=== PATIENT | male | born 1975 | race American Indian/Alaskan Native ===

== ENCOUNTER 2017-09-05 19:16 | Emergency (ER) | payer SELFPAY ==
[2017-09-05] MEDS ORDERED: DUONEB *Not for PRN Use IH ONE (19:21)
[2017-09-05] MEDS ORDERED: XOPENEX IH ONE ×2 (19:26→19:30)
--- NOTE | 2017-09-06 00:33 | Emergency Department Report ---
HPI - General Chief Complaint: Adult Asthma Time Seen by Provider: 09/05/17 23:59 - HPI HPI: Patient reports shortness of breath, wheezing and cough. He reports that he ran out of his albuterol nebulizer which he usually uses at home. Patient said he has never been intubated for asthma flareup but he said several episode of flares usually every 2-3 weeks. His primary care is [place]. He said he only takes albuterol nebulizer for asthma. He said his last emergency room visit was 2 months ago. Denies any fever or chills. Denies any chest pain. Pain is 0-10. Positive nasal congestion and drainage with postnasal drip. Blood pressure is 178/120 and triage and patient's that his blood pressures always up with his asthma exacerbation and denies any history of high blood pressure. Cough is dry without any hemoptysis. Denies nausea vomiting or abdominal low back pain. Denies sore throat or headache. ED Past Medical Hx - Past Medical History Previous Medical History?: Yes Hx Asthma: Yes Additional medical history: Hernia - Surgical History Past Surgical History?: Yes Additional Surgical History: Skin graft - Family History Family history: hypertension - Social History Smoking Status: Never Smoker Substance Use Type: None - Medications Home Medications: Home Medications Medication Instructions Recorded Confirmed Last Taken Type traMADol [Ultram 50 MG tab] 50 mg PO Q6HR PRN #15 tablet 11/14/15 Unknown Rx ALBUTEROL Inhaler [ProAir HFA 2 puff IH Q4-6H PRN #1 inhalation 09/06/17 Unknown Rx Inhaler] ALBUTEROL NEB's [Proventil 0.083% 2.5 mg IH Q4-6H PRN #1 box 09/06/17 Unknown Rx NEBS] Cetirizine HCl [ZyrTEC] 10 mg PO QAM 14 Days #14 capsule 09/06/17 Unknown Rx Fluticasone [Flonase] 1 spray NS QDAY 14 Days #1 bottle 09/06/17 Unknown Rx methylPREDNISolone [Medrol Dose 4 mg PO QAM 6 Days #1 pack 09/06/17 Unknown Rx Solomon] ED Review of Systems ROS: Stated complaint: DAVID Other details as noted in HPI Comment: All other systems reviewed and negative Constitutional: no symptoms reported ENT: congestion. denies: ear pain, throat pain Respiratory: cough, shortness of breath, SOB with exertion, SOB at rest, wheezing. denies: orthopnea, stridor Cardiovascular: denies: chest pain, palpitations, dyspnea on exertion, edema, syncope, paroxysmal nocturnal dyspnea Gastrointestinal: denies: abdominal pain, nausea, vomiting, diarrhea Musculoskeletal: denies: back pain, joint swelling, arthralgia Skin: denies: rash Neurological: denies: headache Physical Exam - Physical Exam Vital Signs: Vital Signs 09/05/17 09/05/17 19:45 23:33 Temperature 98.3 F 98.3 F Pulse Rate 134 H 106 H Respiratory 22 18 Rate Blood Pressure 178/120 Blood Pressure 145/115 [Right] O2 Sat by Pulse 90 97 Oximetry Vital Signs 09/05/17 09/05/17 09/06/17 19:45 23:33 00:34 Temperature 98.3 F 98.3 F Pulse Rate 134 H 106 H Respiratory 22 18 18 Rate Blood Pressure 178/120 Blood Pressure 140/100 [Left] Blood Pressure 145/115 [Right] O2 Sat by Pulse 90 97 98 Oximetry General: This is a 42-year-old male well-nourished well-developed in no acute distress. Physical Exam: Head: Normocephalic, atraumatic, no abrasion, no bruising and no contusion. Eyes: Biateral pupils equal and reactive to light, bilateral EOM intact.. Bilateral conjunctival and sclera without injection, normal accommodation. No nystagmus Mouth: Moist, no pharyngeal exudate or erythema. No peritonsillar abscesses. Uvula is midline and oral airways patent. Ears: TM congested without erythema. Bilateral EAC without any redness swelling or drainage. No mastoid bone tenderness Nose: Thierry nasal turbinates congested without erythema and clear drainage. Maxillary and frontal sinuses non-tender to palpate. Neck: Supple, No Cervical adenopathy, full range of motion and no C-spine tenderness. No swelling or tracheal deviation normal reflexes Cardiovascular: S1, S2. Tachycardic and regular rhythm. No murmur. Capillary refill is less then 3 seconds. Lungs: Wheezes throughout lung weaver, dry cough, mild increased work of breathing. No chest wall tenderness. No chest contusion. No bruising to chest.. MSK: Strength 5/5 in all extremities. No joint deformity or crepitus. Normal inspection. Full range of motion to all extremities. No laceration, abrasion or ecchymotic area noted. Abdomen: Non-tender to palpate in all quadrants, no guarding or rebound tenderness, positive bowel sounds in all quadrants. No CVA tenderness. No hernia, bruit or mass. No rigidity or distention. Extremities: No clubbing, cyanosis or edema. +2 pulses. No neurovascular compromise Skin: Clean, dry and intact. No rash or lesions. Neurological: GCS at 15, Pt is alert and oriented 3 speech is clear period. Bilateral hand clinical applications manager strong and equal. Normal gait. Psych: Normal mood and behavior ED Course Vital Signs 09/05/17 09/05/17 19:45 23:33 Temperature 98.3 F 98.3 F Pulse Rate 134 H 106 H Respiratory 22 18 Rate Blood Pressure 178/120 Blood Pressure 145/115 [Right] O2 Sat by Pulse 90 97 Oximetry Vital Signs 09/05/17 09/05/17 09/06/17 19:45 23:33 00:34 Temperature 98.3 F 98.3 F Pulse Rate 134 H 106 H Respiratory 22 18 18 Rate Blood Pressure 178/120 Blood Pressure 140/100 [Left] Blood Pressure 145/115 [Right] O2 Sat by Pulse 90 97 98 Oximetry - Reevaluation(s) Reevaluation #1: 09/06/17 01:08 Patient received Xopenex 1.25 mg nebulization treatment along with Solu-Medrol 125 mg IV. Reevaluation, patient said he felt better and lung sounds are clear. ED Medical Decision Making - Medical Decision Making ED course: Patient here with exacerbation of asthma. He goes to [facility] for his primary care physician visits and said that he has an appointment coming up with his doctor next week. He reports that he uses albuterol nebulizer at home and does not use the inhaler. Patient denies using any long-term bronchodilator. Patient he reported an asthma flareup and that he gets flareup every couple weeks. Patient found to have O2 sat at 90% on room air with tachycardia and blood pressure of 178/120 upon arrival to the emergency room. He was given Xopenex 1.25 mg nebulizer and Solu-Medrol 125 mg IV and upon reevaluation patient said he feels better and his lungs sounds are clear. Patient vital signs are better blood pressure is 140/100 and he denies any history of high blood pressure. I discussed patient he needs to keep a log of his blood pressure and take his primary care visit with him for evaluation. I also discussed patient that if he is using his rescue inhaler several times a week studies get an asthma flareup every couple weeks he will need to discuss with his primary care management with other medication such as long acting bronchodilators. Patient is stable and discharged home with prescription for Zyrtec, Flonase, Medrol Dosepak, albuterol inhaler and albuterol nebulizer. To follow up with his primary care in 2 days Critical care attestation.: If time is entered above; I have spent that time in minutes in the direct care of this critically ill patient, excluding procedure time. ED Disposition Clinical Impression: Acute exacerbation of asthma with allergic rhinitis, Cough in adult Disposition: DC-01 TO HOME OR SELFCARE Is pt being admited?: No Does the pt Need Aspirin: No Condition: Stable Instructions: Asthma (ED), Upper Respiratory Infection (ED), Acute Cough (ED) Additional Instructions: Please follow up with primary care physician in 2 days or return to the emergency room if his symptoms worsen prior to follow up visit. Please keep a log of your blood pressure and take to primary care visit with you for evaluation. Take albuterol inhaler and nebulizer as prescribed Take Flonase and Zyrtec for rhinitis which includes nasal congestion and ear congestion. Take Medrol Dosepak as prescribed Prescriptions: ALBUTEROL Inhaler [ProAir HFA Inhaler] 2 puff IH Q4-6H PRN #1 inhalation PRN Reason: wheezing and cough ALBUTEROL NEB's [Proventil 0.083% NEBS] 2.5 mg IH Q4-6H PRN #1 box PRN Reason: cough and wheezing Cetirizine HCl [ZyrTEC] 10 mg PO QAM 14 Days #14 capsule Fluticasone [Flonase] 1 spray NS QDAY 14 Days #1 bottle methylPREDNISolone [Medrol Dose Solomon] 4 mg PO QAM 6 Days #1 pack Referrals: [facility] [Outside] - 09/08/17 [facility] [Provider Group] - 09/08/17 Forms: Work/School Release Form(ED)
[2017-09-06 00:34] VITALS: BP 140/100
== END 2017-09-06 01:20 | disposition home or self-care (01) ==
LOC: ED 19:16
DX: J45.901 Unspecified asthma with (acute) exacerbation (principal); I10 Essential (primary) hypertension
CPT/HCPCS: 96374; 99282; J2930

== ENCOUNTER 2017-12-17 22:38 | Emergency (ER) | payer SELFPAY ==
[2017-12-17] MEDS ORDERED: ATROVENT IH ONE ×3 (23:12→23:19)
[2017-12-17] MEDS ORDERED: PROVENTIL IH ONE ×3 (23:12→23:19)
[2017-12-17 23:17] LABS: Hematocrit 44.4 % (35.5-45.6); Hemoglobin 14.5 gm/dl (11.8-15.2); Mean Corpuscular HGB Conc 33 % (32-34); Mean Corpuscular Hemoglobin 26 pg (28-32); Mean Corpuscular Volume 80 fl (84-94); Platelet Count 212 K/mm3 (140-440); Red Blood Count 5.56 M/mm3 (3.65-5.03); Red Cell Distribution Width 13.7 % (13.2-15.2)
--- NOTE | 2017-12-17 23:17 | Emergency Department Report ---
Olga Doc - Documentation Documentation: This is a 42-year-old male who reports that he is having difficulty breathing and and he has a history of asthma and he takes albuterol but this is a different pattern for him. He is here to be evaluated. Denies any chest pain but reports shortness of breath. He said he has wheezing that comes and goes. Patient O2 sat is 93% on room air. He denies any fever or chills. Denies any headache. PE: Lungs sounds diminished throughout, mild increased work of breathing. No adventitious sounds heard upon examination. Pulse ox is 93% on room air CV: S1, S2. Regular rate and rhythm Mouth: Moist, uvula midline and oral airways patent. Tongue is normal A/P 1: Difficulty breathing then-pulse ox is at 93% on room air. Albuterol and Atrovent nebulized treatment ordered. Chest x-ray ordered, labs are pending and patient to be seen by Dr. Griffiths who I spoke with regarding patient.
[2017-12-17] MEDS ORDERED: DELTASONE PO ONE (23:20)
--- NOTE | 2017-12-17 23:27 | Emergency Department Report ---
HPI - General Chief Complaint: Dyspnea/Respdistress Time Seen by Provider: 12/17/17 23:10 - HPI HPI: Room 31 The patient is a 42-year-old male presenting with chief complaint of shortness of breath. The patient stayed for one week he says shortness of breath as well as a cough has been nonproductive. The patient states he has chest pain that worsens whenever he coughs. Patient denies any history of fever. Patient states the symptoms feel consistent with his asthma but states she usually only wheezes at night when lying down. Patient denies peripheral edema Location: Lungs, see above Duration: One week Quality: Shortness of breath Severity: Moderate Modifying factors: [see above] Context: [see above] Mode of transportation: Unknown ED Past Medical Hx - Past Medical History Hx Asthma: Yes Additional medical history: Hernia - Surgical History Additional Surgical History: Skin graft - Social History Smoking Status: Never Smoker Substance Use Type: None (denies illicit drug use) - Medications Home Medications: Home Medications Medication Instructions Recorded Confirmed Last Taken Type traMADol [Ultram 50 MG tab] 50 mg PO Q6HR PRN #15 tablet 11/14/15 Unknown Rx ALBUTEROL Inhaler [ProAir HFA 2 puff IH Q4-6H PRN #1 inhalation 09/06/17 Unknown Rx Inhaler] ALBUTEROL NEB's [Proventil 0.083% 2.5 mg IH Q4-6H PRN #1 box 09/06/17 Unknown Rx NEBS] Cetirizine HCl [ZyrTEC] 10 mg PO QAM 14 Days #14 capsule 09/06/17 Unknown Rx Fluticasone [Flonase] 1 spray NS QDAY 14 Days #1 bottle 09/06/17 Unknown Rx methylPREDNISolone [Medrol Dose 4 mg PO QAM 6 Days #1 pack 09/06/17 Unknown Rx Solomon] ED Review of Systems ROS: Stated complaint: DAVID Other details as noted in HPI Constitutional: denies: fever Eyes: denies: eye pain ENT: denies: throat pain Respiratory: cough, shortness of breath, wheezing Gastrointestinal: denies: abdominal pain Genitourinary: denies: dysuria Musculoskeletal: myalgia (chest pain that increases with cough). denies: back pain Neurological: denies: headache Physical Exam - Physical Exam Vital Signs: Vital Signs 12/17/17 22:44 Temperature 98.6 F Pulse Rate 100 H Respiratory 22 Rate Blood Pressure 114/66 O2 Sat by Pulse 93 Oximetry Physical Exam: GENERAL: The patient is well-developed well-nourished male sitting in wheelchair exhibiting mild increased work of breathing but does not appear to be in acute distress. [] HEENT: Normocephalic. Atraumatic. Extraocular motions are intact. Patient has moist mucous membranes. NECK: Supple. Trachea midline CHEST/LUNGS: Clear to auscultation. No wheezing or rhonchi auscultated. Breath sounds are equal bilaterally. There is no respiratory distress noted. HEART/CARDIOVASCULAR: Regular. There is no tachycardia. There is no gallop rub or murmur. ABDOMEN: Abdomen is soft, nontender. Patient has normal bowel sounds. There is no abdominal distention. SKIN: There is no rash. There is no edema. There is no diaphoresis. NEURO: The patient is awake, alert, and oriented. The patient is cooperative. The patient has normal speech MUSCULOSKELETAL: There is no evidence of acute injury. ED Course Vital Signs 12/17/17 22:44 Temperature 98.6 F Pulse Rate 100 H Respiratory 22 Rate Blood Pressure 114/66 O2 Sat by Pulse 93 Oximetry ED Medical Decision Making - Lab Data Result diagrams: 12/17/17 23:04 12/17/17 23:04 Laboratory Tests 12/17/17 12/17/17 12/17/17 23:04 23:04 23:28 WBC 10.9 RBC 5.56 H Hgb 14.5 Hct 44.4 MCV 80 L MCH 26 L MCHC 33 RDW 13.7 Plt Count 212 Eos % (Auto) Yeast Culture Operator D-Dimer 169.76 VBG pH Sodium 120 L Potassium 3.8 Chloride 79.4 L Carbon Dioxide 23 Anion Gap 21 BUN 25 H Creatinine 1.2 Estimated GFR > 60 BUN/Creatinine Ratio 21 Glucose 907 H* POC Glucose Calcium 9.3 Total Creatine Kinase CK-MB (CK-2) CK-MB (CK-2) Rel Index Troponin T NT-Pro-B Natriuret Pep 12/17/17 12/18/17 12/18/17 23:28 00:15 01:02 WBC RBC Hgb Hct MCV MCH MCHC RDW Plt Count Eos % (Auto) D-Dimer VBG pH 7.382 Sodium Potassium Chloride Carbon Dioxide Anion Gap BUN Creatinine Estimated GFR BUN/Creatinine Ratio Glucose POC Glucose > 500 H Calcium Total Creatine Kinase 146 CK-MB (CK-2) 3.5 CK-MB (CK-2) Rel Index 2.3 Troponin T < 0.010 NT-Pro-B Natriuret Pep 27.02 - EKG Data -: EKG Interpreted by Me EKG shows normal: sinus rhythm Rate: normal - EKG Data When compared to previous EKG there are: previous EKG unavailable Interpretation: nonspecific ST-T wave rashawn (koehler ST elevation) - Medical Decision Making Discussed with patient at length my concern for his extremely elevated glucose and that he should be admitted to the hospital for further management. I explained the increased risk of morbidity and/or mortality should he leave the hospital AGAINST MEDICAL ADVICE. The patient verbalizes understanding and states he does not wish to stay. - Differential Diagnosis asthma, bronchitis, pericarditis, pneumonia, CHF, ACS, PE Critical care attestation.: If time is entered above; I have spent that time in minutes in the direct care of this critically ill patient, excluding procedure time. ED Disposition Clinical Impression: Hyperglycemia, Diabetes mellitus, Shortness of breath, Cough Disposition: 07 LEFT AGAINST MED ADVICE Is pt being admited?: No Does the pt Need Aspirin: No Condition: Undetermined Instructions: Diabetes Mellitus Type 2 in Adults (ED) Referrals: JORDAN EVERETT MD [Staff Physician] - [facility] [Outside] - [facility] Time of Disposition: 01:07 (patient leaving AMA)
[2017-12-17 23:38] LABS: BUN/Creatinine Ratio 21; Blood Urea Nitrogen 25 mg/dL (9-20); Calcium 9.3 mg/dL (8.4-10.2); Hemolysis Index 14
[2017-12-17 23:56] LABS: Creatine Kinase MB 3.5 ng/mL (0.0-4.0)
[2017-12-18] MEDS ORDERED: NACL 0.9% 1000 ML 1,000 ML IV ONE (00:11)
--- NOTE | 2017-12-18 00:39 | XRay Report ---
FINAL REPORT EXAM: XR CHEST ROUTINE 2V HISTORY: shortness of breath, cough TECHNIQUE: PA and lateral views of the chest were obtained. PRIORS: None. FINDINGS: No lobar consolidation, pleural effusion or pneumothorax. Patchy opacities are suggested in the right upper lobe. Cardiac silhouette and mediastinal contours are unremarkable. No acute osseous abnormality is present. IMPRESSION: Possible early infiltrate in the right upper lobe. No pleural effusion.
[2017-12-18] MEDS ORDERED: HumuLIN R IV ONE (01:01)
[2017-12-18 01:24] VITALS: BP 95/65
[2017-12-18 01:34] LABS: Platelet Estimate Consistent w Auto; Total Cells Counted 100
== END 2017-12-18 02:15 | disposition left against medical advice (07) ==
LOC: ED 22:38
DX: E11.65 Type 2 diabetes mellitus with hyperglycemia (principal); R06.02 Shortness of breath; R05 Cough; J45.909 Unspecified asthma, uncomplicated; Z79.899 Other long term (current) drug therapy
CPT/HCPCS: 36415; 71046; 80048; 82550; 82553; 82805; 82962; 83880; 84484; 85007; 85025; 85379; 93005; 93010; 94640; 96361; 96374; 99284; J7030; J7512; J1815

== ENCOUNTER 2018-01-24 18:42 | Emergency (ER) | payer OTHER ==
[2018-01-24] MEDS ORDERED: DUONEB *Not for PRN Use IH ONE (19:02)
[2018-01-24] MEDS ORDERED: PROVENTIL IH ONE (19:03)
--- NOTE | 2018-01-24 22:43 | Emergency Department Report ---
ED Asthma HPI - General Chief Complaint: Dyspnea/Respdistress Stated Complaint: ASTHMA Time Seen by Provider: 01/24/18 22:27 Source: patient Mode of arrival: Ambulatory Limitations: No Limitations - History of Present Illness Initial Comments: This is a 43-year-old male who is unknown to this provider previously, reports a past medical history of asthma and diabetes, presents to the ER with cough, wheezing, shortness of breath, reports symptoms today are similar to prior episodes of asthma flare/exacerbation. He was given albuterol Atrovent and steroids prior to my evaluation, and this resolved his symptoms. He denies DVT and pulmonary embolus risk factors, reports that his symptoms are now resolved, and like to go home. MD Complaint: "asthma attack", shortness of breath, wheezing -: Gradual Asthma History: adult onset, history of prior ED visit Severity: moderate Context: ran out of meds Associated Symptoms: dry cough Treatments Prior to Arrival: inhaled bronchodilator - Related Data Previous Rx's Medication Instructions Recorded Last Taken Type traMADol [Ultram 50 MG tab] 50 mg PO Q6HR PRN #15 tablet 11/14/15 Unknown Rx ALBUTEROL Inhaler [ProAir HFA 2 puff IH Q4-6H PRN #1 inhalation 09/06/17 Unknown Rx Inhaler] ALBUTEROL NEB's [Proventil 0.083% 2.5 mg IH Q4-6H PRN #1 box 09/06/17 Unknown Rx NEBS] Cetirizine HCl [ZyrTEC] 10 mg PO QAM 14 Days #14 capsule 09/06/17 Unknown Rx Fluticasone [Flonase] 1 spray NS QDAY 14 Days #1 bottle 09/06/17 Unknown Rx methylPREDNISolone [Medrol Dose 4 mg PO QAM 6 Days #1 pack 09/06/17 Unknown Rx Solomon] ALBUTEROL Inhaler [Proair] 2 puff IH QID PRN #1 inhalation 12/18/17 Unknown Rx Amoxicillin [Amoxicillin TAB] 875 mg PO BID #14 tablet 12/18/17 Unknown Rx Albuterol Sulfate [Albuterol 0.63% 0.63 mg IH Q4HR PRN #2 ml 01/25/18 Unknown Rx NEBS] Albuterol Sulfate [Proair 90 mcg IH Q4HR PRN #2 [email or web address] 01/25/18 Unknown Rx Respiclick] predniSONE [Deltasone] 40 mg PO QDAY #8 tab 01/25/18 Unknown Rx Allergies Allergy/AdvReac Type Severity Reaction Status Date / Time No Known Allergies Allergy Verified 01/24/18 19:06 ED Review of Systems ROS: Stated complaint: ASTHMA Other details as noted in HPI Constitutional: denies: weakness ENT: congestion Respiratory: wheezing Cardiovascular: denies: chest pain Gastrointestinal: denies: abdominal pain Genitourinary: denies: dysuria Musculoskeletal: denies: back pain Skin: denies: lesions Neurological: denies: weakness ED Past Medical Hx - Past Medical History Previous Medical History?: Yes Hx Asthma: Yes Additional medical history: Hernia - Surgical History Past Surgical History?: Yes Additional Surgical History: Skin graft - Social History Smoking Status: Never Smoker - Medications Home Medications: Home Medications Medication Instructions Recorded Confirmed Last Taken Type traMADol [Ultram 50 MG tab] 50 mg PO Q6HR PRN #15 tablet 11/14/15 Unknown Rx ALBUTEROL Inhaler [ProAir HFA 2 puff IH Q4-6H PRN #1 inhalation 09/06/17 Unknown Rx Inhaler] ALBUTEROL NEB's [Proventil 0.083% 2.5 mg IH Q4-6H PRN #1 box 09/06/17 Unknown Rx NEBS] Cetirizine HCl [ZyrTEC] 10 mg PO QAM 14 Days #14 capsule 09/06/17 Unknown Rx Fluticasone [Flonase] 1 spray NS QDAY 14 Days #1 bottle 09/06/17 Unknown Rx methylPREDNISolone [Medrol Dose 4 mg PO QAM 6 Days #1 pack 09/06/17 Unknown Rx Solomon] ALBUTEROL Inhaler [Proair] 2 puff IH QID PRN #1 inhalation 12/18/17 Unknown Rx Amoxicillin [Amoxicillin TAB] 875 mg PO BID #14 tablet 12/18/17 Unknown Rx Albuterol Sulfate [Albuterol 0.63% 0.63 mg IH Q4HR PRN #2 ml 01/25/18 Unknown Rx NEBS] Albuterol Sulfate [Proair 90 mcg IH Q4HR PRN #2 aer.[email or web address] 01/25/18 Unknown Rx Respiclick] predniSONE [Deltasone] 40 mg PO QDAY #8 tab 01/25/18 Unknown Rx ED Physical Exam - General Limitations: No Limitations General appearance: alert, in no apparent distress - Head Head exam: Present: atraumatic, normocephalic - Eye Eye exam: Present: normal appearance, EOMI. Absent: nystagmus - ENT ENT exam: Present: normal exam, normal orophraynx, mucous membranes moist, normal external ear exam - Neck Neck exam: Present: normal inspection, full ROM - Respiratory Respiratory exam: Present: normal lung sounds bilaterally, rhonchi, other ( patient has very faint rhonchi in the lung weaver. No obvious wheezing is noted.). Absent: respiratory distress, wheezes, rales, chest wall tenderness, accessory muscle use, decreased breath sounds - Cardiovascular Cardiovascular Exam: Present: normal rhythm, tachycardia, normal heart sounds. Absent: systolic murmur, diastolic murmur, rubs, gallop - GI/Abdominal GI/Abdominal exam: Present: soft, normal bowel sounds. Absent: distended, tenderness, guarding, rebound, rigid, pulsatile mass - Rectal Rectal exam: Present: deferred - Extremities Exam Extremities exam: Present: normal inspection, full ROM, normal capillary refill , other (2+ pulses noted in the bilateral upper, lower extremities. Compartments soft. No long bony tenderness. The pelvis is stable.). Absent: pedal edema, joint swelling, calf tenderness (there is no palpable cord. There is a negative Homans sign.) - Back Exam Back exam: Present: normal inspection, full ROM. Absent: tenderness, CVA tenderness (R), paraspinal tenderness, vertebral tenderness - Neurological Exam Neurological exam: Present: alert, oriented X3, CN II-XII intact, normal gait, other (Extraocular movements intact. Tongue midline. No facial droop. Facial sensation intact to light touch in the V1, V2, V3 distribution bilaterally. 5 and 5 strength in 4 extremities.. Sensation is intact to light touch in 4 extremities.). Absent: motor sensory deficit - Psychiatric Psychiatric exam: Present: normal affect, normal mood - Skin Skin exam: Present: warm, dry, intact, normal color. Absent: rash ED Course Vital Signs 01/24/18 01/24/18 01/24/18 19:04 22:10 22:16 Temperature 98.1 F Pulse Rate 131 H 101 H 102 H Respiratory 20 19 24 Rate Blood Pressure 124/86 O2 Sat by Pulse 95 93 Oximetry 01/24/18 01/24/18 01/24/18 22:30 22:46 23:00 Temperature Pulse Rate 108 H 103 H 99 H Respiratory 27 H 20 17 Rate Blood Pressure 134/95 134/95 129/88 O2 Sat by Pulse 93 Oximetry 01/24/18 01/24/18 01/25/18 23:16 23:30 00:15 Temperature Pulse Rate 97 H 98 H Respiratory 23 20 20 Rate Blood Pressure 129/88 124/91 O2 Sat by Pulse 93 94 96 Oximetry ED Medical Decision Making - Lab Data Vital Signs 01/24/18 01/24/18 01/24/18 19:04 22:10 22:16 Temperature 98.1 F Pulse Rate 131 H 101 H 102 H Respiratory 20 19 24 Rate Blood Pressure 124/86 O2 Sat by Pulse 95 93 Oximetry 01/24/18 01/24/18 01/24/18 22:30 22:46 23:00 Temperature Pulse Rate 108 H 103 H 99 H Respiratory 27 H 20 17 Rate Blood Pressure 134/95 134/95 129/88 O2 Sat by Pulse 93 Oximetry 01/24/18 01/24/18 01/25/18 23:16 23:30 00:15 Temperature Pulse Rate 97 H 98 H Respiratory 23 20 20 Rate Blood Pressure 129/88 124/91 O2 Sat by Pulse 93 94 96 Oximetry - Medical Decision Making Differential diagnosis, including but not limited to: Asthma, bronchitis, reactive airway disease Assessment and plan: 43-year-old male with resolved episode of reactive airway disease. He is afebrile with reassuring vital signs, his wheezing has improved , his tachycardia has resolved, he has no DVT, pulmonary embolus risk factors, and had a negative d-dimer at this hospital within the past 2 months. He is medically suitable for discharge at this time, and his medications will be refilled. He'll be referred to outpatient primary care, return precautions have been reviewed. Critical care attestation.: If time is entered above; I have spent that time in minutes in the direct care of this critically ill patient, excluding procedure time. ED Disposition Clinical Impression: History of reactive airway disease Disposition: DC-01 TO HOME OR SELFCARE Is pt being admited?: No Does the pt Need Aspirin: No Condition: Stable Instructions: Asthma (ED) Additional Instructions: Take the medications as directed. Follow-up with the primary care doctor within the next month. Return to the ER right away with fevers, chills, lethargy, irritability, projectile vomiting, change in mental status, confusions , inability to tolerate liquid feeds, worsens difficulty with breathing. Referrals: PRIMARY CAREMD [Primary Care Provider] - 3-5 Days MICHELLE RESTREPO MD [Staff Physician] - 3-5 Days
[2018-01-24 23:53] VITALS: BP 124/91
== END 2018-01-25 01:00 | disposition home or self-care (01) ==
LOC: ED 18:42
DX: J45.909 Unspecified asthma, uncomplicated (principal)
CPT/HCPCS: 94640; 96374; 99283; J2930

== ENCOUNTER 2018-01-31 09:36 | Inpatient (IN) | payer SELFPAY ==
[2018-01-31] MEDS ORDERED: PROVENTIL IH ONE ×2 (09:50→09:52)
[2018-01-31] MEDS ORDERED: MAGNESIUM SULFATE 2GM/50ML 2 GM/50 ML BAG IV ONE (09:50)
[2018-01-31] MEDS ORDERED: NACL 0.9% 1000 ML 1,000 ML IV ONE (09:50)
--- NOTE | 2018-01-31 09:50 | Emergency Department Report ---
ED Shortness of Breath HPI - General Chief Complaint: Adult Asthma Stated Complaint: ASTHMA ATTACK Time Seen by Provider: 01/31/18 09:49 Source: patient Mode of arrival: Wheelchair Limitations: No Limitations - History of Present Illness MD Complaint: shortness of breath -: Sudden, This morning Radiation: back Severity: severe Pain Scale: 10 Consistency: constant Improves With: nothing Worsens With: nothing Known History Of: asthma Associated Symptoms: cough Treatments Prior to Arrival: none - Related Data Home Oxygen Therapy: No Previous Rx's Medication Instructions Recorded Last Taken Type traMADol [Ultram 50 MG tab] 50 mg PO Q6HR PRN #15 tablet 11/14/15 Unknown Rx ALBUTEROL Inhaler [ProAir HFA 2 puff IH Q4-6H PRN #1 inhalation 09/06/17 Unknown Rx Inhaler] ALBUTEROL NEB's [Proventil 0.083% 2.5 mg IH Q4-6H PRN #1 box 09/06/17 Unknown Rx NEBS] Cetirizine HCl [ZyrTEC] 10 mg PO QAM 14 Days #14 capsule 09/06/17 Unknown Rx Fluticasone [Flonase] 1 spray NS QDAY 14 Days #1 bottle 09/06/17 Unknown Rx methylPREDNISolone [Medrol Dose 4 mg PO QAM 6 Days #1 pack 09/06/17 Unknown Rx Solomon] ALBUTEROL Inhaler [Proair] 2 puff IH QID PRN #1 inhalation 12/18/17 Unknown Rx Amoxicillin [Amoxicillin TAB] 875 mg PO BID #14 tablet 12/18/17 Unknown Rx Albuterol Sulfate [Albuterol 0.63% 0.63 mg IH Q4HR PRN #2 ml 01/25/18 Unknown Rx NEBS] Albuterol Sulfate [Proair 90 mcg IH Q4HR PRN #2 aer.pow.ba 01/25/18 Unknown Rx Respiclick] predniSONE [Deltasone] 40 mg PO QDAY #8 tab 01/25/18 Unknown Rx Allergies Allergy/AdvReac Type Severity Reaction Status Date / Time No Known Allergies Allergy Verified 01/24/18 19:06 ED Review of Systems ROS: Stated complaint: ASTHMA ATTACK Other details as noted in HPI Comment: All other systems reviewed and negative Constitutional: denies: chills, fever Eyes: denies: eye pain ENT: denies: ear pain Respiratory: cough, shortness of breath, SOB at rest Cardiovascular: denies: chest pain, palpitations Endocrine: no symptoms reported Gastrointestinal: denies: abdominal pain, nausea, vomiting, diarrhea Genitourinary: denies: urgency, dysuria Musculoskeletal: denies: back pain, joint swelling Skin: denies: rash, lesions Neurological: denies: headache, weakness, numbness Psychiatric: denies: anxiety, depression Hematological/Lymphatic: denies: easy bleeding, easy bruising ED Past Medical Hx - Past Medical History Hx Asthma: Yes Additional medical history: Hernia - Surgical History Additional Surgical History: Skin graft - Social History Smoking Status: Never Smoker - Medications Home Medications: Home Medications Medication Instructions Recorded Confirmed Last Taken Type traMADol [Ultram 50 MG tab] 50 mg PO Q6HR PRN #15 tablet 11/14/15 Unknown Rx ALBUTEROL Inhaler [ProAir HFA 2 puff IH Q4-6H PRN #1 inhalation 09/06/17 Unknown Rx Inhaler] ALBUTEROL NEB's [Proventil 0.083% 2.5 mg IH Q4-6H PRN #1 box 09/06/17 Unknown Rx NEBS] Cetirizine HCl [ZyrTEC] 10 mg PO QAM 14 Days #14 capsule 09/06/17 Unknown Rx Fluticasone [Flonase] 1 spray NS QDAY 14 Days #1 bottle 09/06/17 Unknown Rx methylPREDNISolone [Medrol Dose 4 mg PO QAM 6 Days #1 pack 09/06/17 Unknown Rx Solomon] ALBUTEROL Inhaler [Proair] 2 puff IH QID PRN #1 inhalation 12/18/17 Unknown Rx Amoxicillin [Amoxicillin TAB] 875 mg PO BID #14 tablet 12/18/17 Unknown Rx Albuterol Sulfate [Albuterol 0.63% 0.63 mg IH Q4HR PRN #2 ml 01/25/18 Unknown Rx NEBS] Albuterol Sulfate [Proair 90 mcg IH Q4HR PRN #2 aer.pow.ba 01/25/18 Unknown Rx Respiclick] predniSONE [Deltasone] 40 mg PO QDAY #8 tab 01/25/18 Unknown Rx ED Physical Exam - General Limitations: No Limitations General appearance: alert, in distress - Head Head exam: Present: atraumatic, normocephalic, normal inspection - Eye Eye exam: Present: normal appearance, PERRL, EOMI. Absent: scleral icterus Pupils: Present: normal accommodation - ENT ENT exam: Present: normal exam, normal orophraynx, mucous membranes moist - Neck Neck exam: Present: normal inspection, full ROM. Absent: tenderness - Respiratory Respiratory exam: Present: respiratory distress, wheezes, rhonchi, accessory muscle use, decreased breath sounds - Cardiovascular Cardiovascular Exam: Present: normal rhythm, tachycardia, normal heart sounds - GI/Abdominal GI/Abdominal exam: Present: soft, normal bowel sounds. Absent: distended, tenderness, guarding, rebound - Extremities Exam Extremities exam: Present: normal inspection, full ROM, normal capillary refill - Back Exam Back exam: Present: normal inspection, full ROM. Absent: tenderness - Neurological Exam Neurological exam: Present: alert, oriented X3, CN II-XII intact - Psychiatric Psychiatric exam: Present: normal affect, anxious - Skin Skin exam: Present: warm, intact, normal color, diaphoretic ED Course Vital Signs 01/31/18 01/31/18 01/31/18 09:36 10:06 10:36 Temperature 98.5 F Pulse Rate 125 H Pulse Rate [ 110 H 112 H Bilateral] Respiratory 30 H Rate Respiratory 18 18 Rate [Bilateral ] Blood Pressure 142/91 O2 Sat by Pulse 90 Oximetry - Reevaluation(s) Reevaluation #1: 01/31/18 12:44 I discussed patient care with the hospitalist collision estimator Dr Moise. he will admit patient for further evaluation and medical management. ED Medical Decision Making - Lab Data Result diagrams: 01/31/18 10:13 01/31/18 10:13 - Radiology Data Radiology results: report reviewed, image reviewed - Medical Decision Making Asthma Exacerbation. Critical care attestation.: If time is entered above; I have spent that time in minutes in the direct care of this critically ill patient, excluding procedure time. ED Disposition Clinical Impression: Hypoxia Acute asthma exacerbation Qualifiers: Asthma severity: severe Asthma persistence: unspecified Qualified Code(s): J45.901 - Unspecified asthma with (acute) exacerbation Disposition: OP ADMIT IP TO THIS HOSP Is pt being admited?: Yes Does the pt Need Aspirin: No Condition: Fair Instructions: Asthma (ED) Referrals: PRIMARY CARE,MD [Primary Care Provider] - 3-5 Days
[2018-01-31] MEDS ORDERED: MAGNESIUM SULFATE 2 GM in NACL 0.9% 50 ML IV ONE (10:00)
[2018-01-31 10:25] LABS: Basophils # (Auto) 0.1 K/mm3 (0.0-0.1); Basophils % (Auto) 0.8 % (0.0-1.8); Eosinophils # (Auto) 1.6 K/mm3 (0.0-0.4); Eosinophils % (Auto) 13.3 % (0.0-4.3); Hematocrit 42.6 % (35.5-45.6); Hemoglobin 13.8 gm/dl (11.8-15.2); Lymphocytes # (Auto) 1.7 K/mm3 (1.2-5.4); Lymphocytes % (Auto) 14.4 % (13.4-35.0); Mean Corpuscular HGB Conc 32 % (32-34); Mean Corpuscular Hemoglobin 27 pg (28-32); Mean Corpuscular Volume 82 fl (84-94); Monocytes # (Auto) 0.8 K/mm3 (0.0-0.8); Monocytes % (Auto) 7.1 % (0.0-7.3); Platelet Count 208 K/mm3 (140-440); Red Blood Count 5.19 M/mm3 (3.65-5.03); Red Cell Distribution Width 15.8 % (13.2-15.2)
--- NOTE | 2018-01-31 10:32 | XRay Report ---
AP CHEST: HISTORY: Asthma AP view of the chest demonstrates a normal mediastinal and cardiac contour with clear lungs and normal bony and soft tissue structures. IMPRESSION: Unremarkable AP chest.
[2018-01-31 10:45] LABS: Alanine Aminotransferase 67 units/L (7-56); Albumin 3.7 g/dL (3.9-5); BUN/Creatinine Ratio 19; Blood Urea Nitrogen 21 mg/dL (9-20); Calcium 9.7 mg/dL (8.4-10.2); Hemolysis Index 7
[2018-01-31] MEDS ORDERED: LEVAQUIN 750MG/150ML 750 MG/150 ML BAG IV ONE (12:10)
[2018-01-31] MEDS ORDERED: SODIUM CHLORIDE FLUSH SYRINGE 10 ML IV PRN (12:49)
[2018-01-31] MEDS ORDERED: ZOFRAN IV PRN (12:49)
[2018-01-31] MEDS ORDERED: TYLENOL PO PRN (12:49)
[2018-01-31] MEDS ORDERED: ULTRAM PO PRN (12:52)
[2018-01-31] MEDS ORDERED: ZITHROMAX 500 MG in NACL 0.9% 250ML 250 ML IV SCH (12:53)
[2018-01-31 13:37] VITALS: BP 121/81
--- NOTE | 2018-01-31 14:06 | History and Physical Report ---
History of Present Illness Chief complaint: Its hard to breathe History of present illness: 43 YO Male with Asthma (Moderate-Persistent), presents to ED for evaluation. Pt states that he has experienced shortness of breath over the past 4 days with worsening symptoms over the past 1 day. Pt states that he ran out of his nebulizer medication, as well as his steroids. Pt acknowledges increased use of rescue inhaler without relief. Pt seen and evaluated in ED and found to have Asthma Exacerbation, as well as Acute Respiratory Failure. Pt transported to [facility] for further care and evaluation. Pt seen and evaluated in ED and found to have Status Asthmaticus, as well as respiratory failure. Pt unable to speak in complete sentences at time of exam. Past History Past Medical History: other (Asthma) Past Surgical History: hernia repair, Other (a) Social history: single. denies: alcohol abuse, prescription drug abuse, IV drug use, full code Family history: hypertension Medications and Allergies Allergies Allergy/AdvReac Type Severity Reaction Status Date / Time No Known Allergies Allergy Verified 01/24/18 19:06 Home Medications Medication Instructions Recorded Confirmed Last Taken Type Albuterol Sulfate [Albuterol 0.63% 0.63 mg IH Q4HR PRN #2 ml 01/25/18 01/31/18 01/30/18 Rx NEBS] Albuterol Sulfate [Proair 90 mcg IH Q4HR PRN #2 aer.pow.ba 01/25/18 01/31/18 Rx Respiclick] Insulin NPH Hum/Reg Insulin Hm 25 unit SQ BID 01/31/18 01/31/18 01/30/18 History [Humulin 70-30 Vial] Active Meds: Active Medications Acetaminophen (Tylenol) 650 mg PO Q4H PRN PRN Reason: Pain MILD(1-3)/Fever >100.5/SPANN Budesonide (Pulmicort) 0.5 mg IH Q12HRT LORI Azithromycin 500 mg/ Sodium (Chloride) 250 mls @ 250 mls/hr IV Q24HR LORI Loratadine (Claritin) 10 mg PO DAILY [facility] Methylprednisolone Sodium Succinate (Solu-Medrol) 40 mg IV Q12HR LORI Ondansetron HCl (Zofran) 4 mg IV Q8H PRN PRN Reason: Nausea And Vomiting Sodium Chloride (Sodium Chloride Flush Syringe 10 Ml) 10 ml IV BID LORI Sodium Chloride (Sodium Chloride Flush Syringe 10 Ml) 10 ml IV PRN PRN PRN Reason: LINE FLUSH Tramadol HCl (Ultram) 50 mg PO Q6HR PRN PRN Reason: Pain Review of Systems Constitutional: no weight loss, no weight gain, no fever, no chills Ears, nose, mouth and throat: no ear pain, no ear discharge, no tinnitis, no decreased hearing, no nose pain, no nasal congestion Cardiovascular: no chest pain, no orthopnea, no palpitations, no rapid/ irregular heart beat, no edema Respiratory: cough, cough with sputum, shortness of breath, wheezing Gastrointestinal: no abdominal pain, no nausea, no vomiting, no diarrhea, no constipation, no change in bowel habits Genitourinary Male: no dysuria, no hematuria, no flank pain, no discharge, no urinary frequency, no urinary hesitancy, no nocturia Rectal: no pain, no incontinence, no bleeding, no itching, no hemorrhoids Musculoskeletal: no neck stiffness, no neck pain, no shooting arm pain, no arm numbness/tingling, no low back pain, no shooting leg pain Integumentary: no rash, no pruritis, no redness, no sores, no wounds, no jaundice Neurological: no transient paralysis, no paralysis, no weakness, no parathesias , no numbness, no tingling Psychiatric: no anxiety, no memory loss, no change in sleep habits Endocrine: no cold intolerance, no heat intolerance, no polyphagia, no excessive thirst, no polydipsia Hematologic/Lymphatic: no easy bruising, no easy bleeding, no lymphadenopathy, no lymphedema Allergic/Immunologic: no urticaria, no allergic rhinitis, no wheezing, no anaphylaxis, no angioedema Exam - Constitutional Vitals: Temp Pulse Resp BP Pulse Ox 98.5 F 110 H 21 121/81 98 01/31/18 09:36 01/31/18 13:30 01/31/18 13:30 01/31/18 13:30 01/31/18 13:30 General appearance: Present: mild distress - EENT Eyes: Present: PERRL ENT: hearing intact, clear oral mucosa - Neck Neck: Present: supple, normal ROM - Respiratory Respiratory effort: normal Respiratory: bilateral: diminished, wheezing - Cardiovascular Heart Sounds: Present: S1 & S2. Absent: rub, click - Extremities Extremities: pulses symmetrical, No edema Peripheral Pulses: within normal limits - Abdominal General gastrointestinal: Present: soft, non-tender, non-distended, normal bowel sounds Male genitourinary: Present: normal - Integumentary Integumentary: Present: clear, warm, dry - Musculoskeletal Musculoskeletal: gait normal, strength equal bilaterally - Psychiatric Psychiatric: appropriate mood/affect, intact judgment & insight - Neurologic Neurologic: CNII-XII intact, moves all extremities Results - Labs CBC & Chem 7: 01/31/18 10:13 01/31/18 10:13 Labs: Abnormal lab results 01/31/18 01/31/18 01/31/18 Range/Units 10:13 10:13 12:32 WBC 12.0 H (4.5-11.0) K/mm3 RBC 5.19 H (3.65-5.03) M/mm3 MCV 82 L (84-94) fl MCH 27 L (28-32) pg RDW 15.8 H (13.2-15.2) % Eos % (Auto) 13.3 H (0.0-4.3) % Eos # 1.6 H (0.0-0.4) K/mm3 Seg Neutrophils # 7.8 H (1.8-7.7) K/mm3 POC ABG pO2 48 L (80-105) Sodium 135 L (137-145) mmol/L Chloride 91.1 L (98-107) mmol/L BUN 21 H (9-20) mg/dL Glucose 368 H (75-100) mg/dL AST 41 H (5-40) units/L ALT 67 H (7-56) units/L Alkaline Phosphatase 321 H (35-129) units/L Albumin 3.7 L (3.9-5) g/dL Assessment and Plan - Patient Problems (1) Respiratory failure Current Visit: Yes Status: Acute (2) Acute asthma exacerbation Current Visit: Yes Status: Acute Qualifiers: Asthma severity: severe Asthma persistence: unspecified Qualified Code(s) : J45.901 - Unspecified asthma with (acute) exacerbation (3) DVT prophylaxis Current Visit: Yes Status: Acute
[2018-01-31] MEDS ORDERED: PULMICORT IH SCH (20:00)
[2018-01-31] MEDS ORDERED: SODIUM CHLORIDE FLUSH SYRINGE 10 ML IV SCH (22:00)
--- NOTE | 2018-02-01 07:40 | Progress Note ---
History Interval history: Patient was seen and examined. Follow-up on current diagnosis. Overnight uneventful. Patient denies any chest pain, shortness breath, nausea/vomiting or severe headaches. Imaging, nursing note, chart, labs and old chart reviewed. Discussed with patient. GEN: WDWN, NAD, Awake, Alert, Orientated HEENT: NCAT, EOMI, PERRL, OP Clear NECK: supple, no adenopathy, no thyromegaly, no JVD CVS/HEART: RRR, normal S1S2, pulses present bilaterally CHEST/LUNGS: CTA B, Symmetrical chest expansion, good air entry bilaterally GI/Abdomen: soft, NTND, good bowel sounds, no guarding or rebound /Bladder: no suprapubic tenderness, no CVA or paraspinal tenderness EXT/Skin: no c/c/e, no obvious rash MSK: FROM x 4 Neuro: CN 2-12 grossly intact, no new focal deficits Psych: calm Patient is a 43 yo man with history of asthma who presents with sob and cough. WBC 12 but patient has been on steroids, hr 125, rr 30, pO2 only 48, bg 368, na 135, pCXR read as unremarkable -Acute hypoxic respiratory failure due to asthma: treat with O2, consult pulm -Acute Status Asthmaticus: iv steriods, around the clock nebs, abx -SIRS, with early sepsis due to acute bronchitis: started on abx, -Elevated Transamines, normal bilirubin -Hyperglycemia, w/o history DM, ?steriod induced: check a1c -DVT prophylaxis: Hospitalist Physical - Constitutional Vitals: Temp Pulse Resp BP Pulse Ox 98.5 F 110 H 21 121/81 98 01/31/18 09:36 01/31/18 13:30 01/31/18 13:30 01/31/18 13:30 01/31/18 13:30 General appearance: Present: mild distress Results - Labs CBC & Chem 7: 01/31/18 10:13 01/31/18 10:13 Labs: Laboratory Last Values WBC 12.0 K/mm3 (4.5-11.0) H 01/31/18 10:13 RBC 5.19 M/mm3 (3.65-5.03) H 01/31/18 10:13 Hgb 13.8 gm/dl (11.8-15.2) 01/31/18 10:13 Hct 42.6 % (35.5-45.6) 01/31/18 10:13 MCV 82 fl (84-94) L 01/31/18 10:13 MCH 27 pg (28-32) L 01/31/18 10:13 MCHC 32 % (32-34) 01/31/18 10:13 RDW 15.8 % (13.2-15.2) H 01/31/18 10:13 Plt Count 208 K/mm3 (140-440) 01/31/18 10:13 Lymph % (Auto) 14.4 % (13.4-35.0) 01/31/18 10:13 [place] % (Auto) 7.1 % (0.0-7.3) 01/31/18 10:13 Eos % (Auto) 13.3 % (0.0-4.3) H 01/31/18 10:13 Baso % (Auto) 0.8 % (0.0-1.8) 01/31/18 10:13 Lymph # 1.7 K/mm3 (1.2-5.4) 01/31/18 10:13 [place] # 0.8 K/mm3 (0.0-0.8) 01/31/18 10:13 Eos # 1.6 K/mm3 (0.0-0.4) H 01/31/18 10:13 Baso # 0.1 K/mm3 (0.0-0.1) 01/31/18 10:13 Seg Neutrophils % 64.4 % (40.0-70.0) 01/31/18 10:13 Seg Neutrophils # 7.8 K/mm3 (1.8-7.7) H 01/31/18 10:13 POC ABG pH 7.441 (7.35-7.45) 01/31/18 12:32 POC ABG pCO2 41.2 (35-45) 01/31/18 12:32 POC ABG pO2 48 (80-105) L 01/31/18 12:32 POC ABG HCO3 28.1 01/31/18 12:32 POC ABG Total CO2 29 01/31/18 12:32 POC ABG O2 Sat 85 01/31/18 12:32 POC ABG Base Excess 4 01/31/18 12:32 FiO2 21 % 01/31/18 12:32 Sodium 135 mmol/L (137-145) L 01/31/18 10:13 Potassium 3.7 mmol/L (3.6-5.0) 01/31/18 10:13 Chloride 91.1 mmol/L (98-107) L 01/31/18 10:13 Carbon Dioxide 27 mmol/L (22-30) 01/31/18 10:13 Anion Gap 21 mmol/L 01/31/18 10:13 BUN 21 mg/dL (9-20) H 01/31/18 10:13 Creatinine 1.1 mg/dL (0.8-1.5) 01/31/18 10:13 Estimated GFR > 60 ml/min 01/31/18 10:13 BUN/Creatinine Ratio 19 % 01/31/18 10:13 Glucose 368 mg/dL (75-100) H 01/31/18 10:13 Calcium 9.7 mg/dL (8.4-10.2) 01/31/18 10:13 Total Bilirubin 0.50 mg/dL (0.1-1.2) 01/31/18 10:13 AST 41 units/L (5-40) H 01/31/18 10:13 ALT 67 units/L (7-56) H 01/31/18 10:13 Alkaline Phosphatase 321 units/L (35-129) H 01/31/18 10:13 Total Protein 6.9 g/dL (6.3-8.2) 01/31/18 10:13 Albumin 3.7 g/dL (3.9-5) L 01/31/18 10:13 Albumin/Globulin Ratio 1.2 % 01/31/18 10:13
--- NOTE | 2018-02-01 07:42 | Event Note ---
Date: 02/01/18 It appears patient is not in the ED and it appears he was discharged yesterday but pt was never removed from [facility]. Dr. Moise for the discharge summary.
[2018-02-01] MEDS ORDERED: NON-FORMULARY (Cetirizine Hcl [Zyrtec] 10 MG) PO SCH (10:00)
[2018-02-01] MEDS ORDERED: CLARITIN PO SCH (10:00)
== END 2018-01-31 18:30 | disposition home or self-care (01) | DRG 189 ==
LOC: ED 09:36 → 3A 12:49
PROVIDERS: ADMIT Internal Medicine; ATTEND Internal Medicine
PROC: 4A033R1 Measurement of Arterial Saturation, Peripheral, Percutaneous Approach (ICD-10-PCS; principal; 2018-01-31)
DX: J96.01 Acute respiratory failure with hypoxia (principal); J45.42 Moderate persistent asthma with status asthmaticus; Z82.49 Family history of ischemic heart disease and other diseases of the circulatory system; Z79.51 Long term (current) use of inhaled steroids; Z79.4 Long term (current) use of insulin
CPT/HCPCS: 36415; 71045; 80053; 82803; 85025; 94640; 94760; J0456; J1956; J2930; J3475; J7030; J7050

== ENCOUNTER 2018-03-17 13:39 | Emergency (ER) | payer OTHER ==
[2018-03-17] MEDS ORDERED: PROVENTIL IH ONE ×2 (13:49→13:55)
[2018-03-17] MEDS ORDERED: ATROVENT IH ONE (13:50)
[2018-03-17] MEDS ORDERED: SOLU-Medrol IV ONE (13:57)
[2018-03-17] MEDS ORDERED: SOLU-Medrol ONE (13:58)
[2018-03-17] MEDS ORDERED: MUCINEX ER PO ONE (13:59)
[2018-03-17] MEDS ORDERED: ZOFRAN IV ONE (13:59)
[2018-03-17] MEDS ORDERED: TESSALON PERLES PO ONE (13:59)
[2018-03-17] MEDS ORDERED: NACL 0.9% 1000 ML 1,000 ML IV ONE (13:59)
[2018-03-17] MEDS ORDERED: MORPHINE IV ONE (14:00)
[2018-03-17 14:11] LABS: Basophils # (Auto) 0.1 K/mm3 (0.0-0.1); Basophils % (Auto) 0.7 % (0.0-1.8); Eosinophils # (Auto) 0.9 K/mm3 (0.0-0.4); Eosinophils % (Auto) 9.2 % (0.0-4.3); Hemoglobin 14.8 gm/dl (11.8-15.2); Lymphocytes % (Auto) 10.3 % (13.4-35.0); Mean Corpuscular HGB Conc 33 % (32-34); Mean Corpuscular Hemoglobin 27 pg (28-32); Mean Corpuscular Volume 82 fl (84-94); Monocytes # (Auto) 0.9 K/mm3 (0.0-0.8); Monocytes % (Auto) 8.8 % (0.0-7.3); Platelet Count 177 K/mm3 (140-440); Red Blood Count 5.46 M/mm3 (3.65-5.03); Red Cell Distribution Width 14.3 % (13.2-15.2)
[2018-03-17 14:34] LABS: BUN/Creatinine Ratio 16; Blood Urea Nitrogen 18 mg/dL (9-20); Hemolysis Index 5
[2018-03-17] MEDS ORDERED: DUONEB *Not for PRN Use IH ONE (16:22)
[2018-03-17] MEDS: MAGNESIUM SULFATE 2GM/50ML 2 GM/50 ML BAG IV ONE ×2 (16:50→16:57)
[2018-03-17] MEDS ORDERED: BABY ASPIRIN PO ONE (17:12)
--- NOTE | 2018-03-17 17:12 | Emergency Department Report ---
HPI - General Chief Complaint: Adult Asthma Time Seen by Provider: 03/17/18 13:54 - HPI HPI: The patient is a 43-year-old male with a significant history of asthma, presents for evaluation of dyspnea. The patient reports constant and severe dyspnea for the past one day, exacerbated with physical activity, improving that wrist. The patient also reports an associated mild nonproductive cough. The patient denies fever, chest pain, syncope, hemoptysis, unilateral leg swelling, recent immobilization, history of DVT or PE, hx of recent cancer. ED Past Medical Hx - Past Medical History Previous Medical History?: Yes Hx Diabetes: Yes Hx Asthma: Yes Additional medical history: Hernia - Surgical History Past Surgical History?: Yes Additional Surgical History: Skin graft, Pelvic reconstruction, Hernia repair - Social History Smoking Status: Never Smoker Substance Use Type: None - Medications Home Medications: Home Medications Medication Instructions Recorded Confirmed Last Taken Type Albuterol Sulfate [Albuterol 0.63% 0.63 mg IH Q4HR PRN #2 ml 01/25/18 01/31/18 01/30/18 Rx NEBS] Albuterol Sulfate [Albuterol 0.63% 0.63 mg IH TID PRN #1 box 01/31/18 Unknown Rx NEBS] Albuterol Sulfate [Proair 90 mcg IH Q4HR PRN #2 aer.pow.ba 01/31/18 Unknown Rx Respiclick] Azithromycin [Zithromax TAB] 500 mg PO QDAY #5 tablet 01/31/18 Unknown Rx Budesonide [Pulmicort] 0.25 mg IH Q12HR #1 box 01/31/18 Unknown Rx Insulin NPH Hum/Reg Insulin Hm 25 unit SQ BID 01/31/18 01/31/18 01/30/18 History [Humulin 70-30 Vial] Ipratropium [Atrovent NEB] 0.5 mg IH Q8HRT #1 box 01/31/18 Unknown Rx Prednisone [predniSONE 10 mg 10 mg PO .TAPER #1 tab.ds.pk 01/31/18 Unknown Rx (6-Day Pack, 21 Tabs)] ED Review of Systems ROS: Stated complaint: DAVID/CHEST PAIN Other details as noted in HPI Constitutional: denies: fever ENT: denies: throat or neck pain Respiratory: reports cough, shortness of breath Cardiovascular: denies: chest pain Endocrine: denies unexplained weight loss or gain Gastrointestinal: denies: abdominal pain, nausea Genitourinary: denies: dysuria Musculoskeletal: denies: leg swelling Skin: denies: rash Neurological: denies: headache Hematological/Lymphatic: denies: easy bleeding or easy bruising Psych: denies sadness or hopelessness Physical Exam - Physical Exam Vital Signs: Vital Signs 03/17/18 03/17/18 03/17/18 13:45 13:50 13:53 Temperature 98.7 F Pulse Rate 118 H 118 H Pulse Rate [ 118 H Posterior Bilateral Throughout] Respiratory 18 24 Rate Respiratory 24 Rate [Posterior Bilateral Throughout] Blood Pressure 136/94 O2 Sat by Pulse 97 Oximetry 03/17/18 03/17/18 03/17/18 14:00 14:30 14:55 Temperature Pulse Rate 111 H 102 H Pulse Rate [ 107 H Posterior Bilateral Throughout] Respiratory 21 15 Rate Respiratory 20 Rate [Posterior Bilateral Throughout] Blood Pressure 133/94 134/93 O2 Sat by Pulse 100 100 Oximetry 03/17/18 03/17/18 03/17/18 15:00 15:30 16:00 Temperature Pulse Rate Pulse Rate [ Posterior Bilateral Throughout] Respiratory Rate Respiratory Rate [Posterior Bilateral Throughout] Blood Pressure 135/87 127/85 123/88 O2 Sat by Pulse 94 92 90 Oximetry 03/17/18 03/17/18 16:30 17:01 Temperature Pulse Rate 106 H 122 H Pulse Rate [ Posterior Bilateral Throughout] Respiratory 23 33 H Rate Respiratory Rate [Posterior Bilateral Throughout] Blood Pressure 128/96 134/88 O2 Sat by Pulse 100 91 Oximetry Physical Exam: General: well-nourished, well-developed, no acute distress Head: Normocephalic, atraumatic Eyes: normal sclera ENT: Mucous membranes are pink and moist Neck: trachea midline, neck supple, No neck stiffness, no cervical adenopathy Respiratory: Diminished breath sounds and wheezing present throughout lung weaver bilaterally, mild costal retractions present Cardio: S1 and S2 present, no murmurs, rubs, gallops, capillary refill is brisk Abdomen: Normoactive bowel sounds, soft abdomen, no rigidity, no guarding or rebound tenderness Chest WALL/Back: No tenderness to palpation of the chest wall, no CVA tenderness with percussion Musc: No pitting edema Skin: No rash Neuro: no facial drooping, normal speech Psych: Normal affect ED Course Vital Signs 03/17/18 03/17/18 03/17/18 13:45 13:50 13:53 Temperature 98.7 F Pulse Rate 118 H 118 H Pulse Rate [ 118 H Posterior Bilateral Throughout] Respiratory 18 24 Rate Respiratory 24 Rate [Posterior Bilateral Throughout] Blood Pressure 136/94 O2 Sat by Pulse 97 Oximetry 03/17/18 03/17/18 03/17/18 14:00 14:30 14:55 Temperature Pulse Rate 111 H 102 H Pulse Rate [ 107 H Posterior Bilateral Throughout] Respiratory 21 15 Rate Respiratory 20 Rate [Posterior Bilateral Throughout] Blood Pressure 133/94 134/93 O2 Sat by Pulse 100 100 Oximetry 03/17/18 03/17/18 03/17/18 15:00 15:30 16:00 Temperature Pulse Rate Pulse Rate [ Posterior Bilateral Throughout] Respiratory Rate Respiratory Rate [Posterior Bilateral Throughout] Blood Pressure 135/87 127/85 123/88 O2 Sat by Pulse 94 92 90 Oximetry 03/17/18 03/17/18 16:30 17:01 Temperature Pulse Rate 106 H 122 H Pulse Rate [ Posterior Bilateral Throughout] Respiratory 23 33 H Rate Respiratory Rate [Posterior Bilateral Throughout] Blood Pressure 128/96 134/88 O2 Sat by Pulse 100 91 Oximetry ED Medical Decision Making - Lab Data Result diagrams: 03/17/18 13:51 03/17/18 14:20 - Medical Decision Making The patient was seen and examined by myself. The patient is placed on a pvc monitor and continuous pulse ox. On initial evaluation, the patient was found to be in no distress. Evaluation orders were placed. The patient is given a breathing treatment , IV magnesium, and IV site Medrol for txt of his asthma. Chest x-ray negative for focal consolidation, pleural effusions, pulmonary congestion, pneumothorax, or other acute cardio pulmonary disease process. Lab results reveal low PO2 of 67 on ABG. The patient given additional DuoNeb breathing treatment and placed on supplemental oxygenation. After a period of observation, the patient was reevaluated and reported that his dyspnea persisted. His found to remain with wheezing throughout lung weaver and a Repeat ABG is performed. The patient's found to have worsened hypoxemia, PO2 now 57. As the patient is found to have severe hypoxemia the patient will be admitted for continued breathing treatments and close monitoring.The on-call hospitalist service was contacted. They agreed to admit the patient for further treatment and close monitoring. The ED admit order was placed. The patient was admitted in guarded condition. Critical care attestation.: If time is entered above; I have spent that time in minutes in the direct care of this critically ill patient, excluding procedure time. ED Disposition Clinical Impression: Acute respiratory failure with hypoxemia Asthma with status asthmaticus in adult Qualifiers: Asthma severity: mild Asthma persistence: intermittent Qualified Code(s): J45.22 - Mild intermittent asthma with status asthmaticus Disposition: OP ADMIT IP TO THIS HOSP Is pt being admited?: Yes Does the pt Need Aspirin: Yes Condition: Serious Referrals: PRIMARY CARE, [Primary Care Provider] - 3-5 Days Time of Disposition: 17:12
--- NOTE | 2018-03-17 17:50 | History and Physical Report ---
History of Present Illness Chief complaint: I cant breathe History of present illness: 43 YO Male with DM, Asthma presents to ED for evaluation. Pt states that he has experienced shortness of breath for th epast 3 days with worsening symptoms over th past 1 day. Pt found to have Acut respiratory failure with hypoxemia secondary to status asthmaticus. Pt treated with supportive therapy with mild improvement in symptoms. Pt departed ED prior to completion of diagnostic and treatment plan. Pt acknowledges understanding of likelihood of worsening symptoms and . Pt signed out AMA. Past History Past Medical History: diabetes, other (Asthma) Past Surgical History: hernia repair, Other (Pelvic skin graft) Social history: single. denies: smoking, alcohol abuse, prescription drug abuse Family history: diabetes, hypertension Medications and Allergies Allergies Allergy/AdvReac Type Severity Reaction Status Date / Time No Known Allergies Allergy Verified 01/24/18 19:06 Home Medications Medication Instructions Recorded Confirmed Last Taken Type Albuterol Sulfate [Albuterol 0.63% 0.63 mg IH Q4HR PRN #2 ml 01/25/18 01/31/18 01/30/18 Rx NEBS] Albuterol Sulfate [Albuterol 0.63% 0.63 mg IH TID PRN #1 box 01/31/18 Unknown Rx NEBS] Albuterol Sulfate [Proair 90 mcg IH Q4HR PRN #2 aer.pow.ba 01/31/18 Unknown Rx Respiclick] Azithromycin [Zithromax TAB] 500 mg PO QDAY #5 tablet 01/31/18 Unknown Rx Budesonide [Pulmicort] 0.25 mg IH Q12HR #1 box 01/31/18 Unknown Rx Insulin NPH Hum/Reg Insulin Hm 25 unit SQ BID 01/31/18 01/31/18 01/30/18 History [Humulin 70-30 Vial] Ipratropium [Atrovent NEB] 0.5 mg IH Q8HRT #1 box 01/31/18 Unknown Rx Prednisone [predniSONE 10 mg 10 mg PO .TAPER #1 tab.ds.pk 01/31/18 Unknown Rx (6-Day Pack, 21 Tabs)] Review of Systems Constitutional: no weight loss, no weight gain, no fever, no chills Ears, nose, mouth and throat: no ear pain, no ear discharge, no tinnitis, no decreased hearing, no nose pain Cardiovascular: no chest pain, no orthopnea, no palpitations, no rapid/ irregular heart beat Respiratory: cough, shortness of breath Gastrointestinal: no abdominal pain, no nausea, no vomiting, no diarrhea, no constipation Genitourinary Male: no hematuria, no flank pain, no discharge, no urinary frequency, no urinary hesitancy Rectal: no pain, no incontinence, no bleeding Musculoskeletal: no neck stiffness, no neck pain, no shooting arm pain, no low back pain Integumentary: no rash, no pruritis, no redness, no sores, no wounds Neurological: no head injury, no transient paralysis, no paralysis, no weakness , no parathesias, no tingling Psychiatric: no anxiety, no memory loss, no change in sleep habits, no sleep disturbances, no insomnia, no change in appetite Endocrine: no cold intolerance, no heat intolerance, no polyphagia, no excessive thirst, no polydipsia Hematologic/Lymphatic: no easy bruising, no easy bleeding, no lymphadenopathy, no lymphedema Allergic/Immunologic: no urticaria, no allergic rhinitis, no wheezing, no persistent infections, no anaphylaxis, no angioedema Exam - Constitutional Vitals: Temp Pulse Resp BP Pulse Ox 98.7 F 122 H 33 H 134/88 91 03/17/18 13:50 03/17/18 17:01 03/17/18 17:01 03/17/18 17:01 03/17/18 17:01 General appearance: Present: mild distress - EENT Eyes: Present: PERRL ENT: hearing intact, clear oral mucosa - Neck Neck: Present: supple, normal ROM - Respiratory Respiratory effort: labored Respiratory: bilateral: diminished, wheezing - Cardiovascular Heart Sounds: Present: S1 & S2. Absent: rub, click - Extremities Extremities: pulses symmetrical, No edema Peripheral Pulses: within normal limits - Abdominal General gastrointestinal: Present: soft, non-tender, non-distended, normal bowel sounds Male genitourinary: Present: normal - Integumentary Integumentary: Present: clear, warm, dry - Musculoskeletal Musculoskeletal: gait normal, strength equal bilaterally - Psychiatric Psychiatric: appropriate mood/affect, intact judgment & insight, agitated - Neurologic Neurologic: CNII-XII intact, moves all extremities Results - Labs CBC & Chem 7: 03/17/18 13:51 03/17/18 14:20 Labs: Abnormal lab results 03/17/18 03/17/18 03/17/18 Range/Units 13:51 14:20 15:02 RBC 5.46 H (3.65-5.03) M/mm3 MCV 82 L (84-94) fl MCH 27 L (28-32) pg Lymph % (Auto) 10.3 L (13.4-35.0) % [place] % (Auto) 8.8 H (0.0-7.3) % Eos % (Auto) 9.2 H (0.0-4.3) % Lymph # 1.0 L (1.2-5.4) K/mm3 [place] # 0.9 H (0.0-0.8) K/mm3 Eos # 0.9 H (0.0-0.4) K/mm3 Seg Neutrophils % 71.0 H (40.0-70.0) % POC ABG pO2 67 L (80-105) Glucose 239 H (75-100) mg/dL 03/17/18 Range/Units 17:09 RBC (3.65-5.03) M/mm3 MCV (84-94) fl MCH (28-32) pg Lymph % (Auto) (13.4-35.0) % [place] % (Auto) (0.0-7.3) % Eos % (Auto) (0.0-4.3) % Lymph # (1.2-5.4) K/mm3 [place] # (0.0-0.8) K/mm3 Eos # (0.0-0.4) K/mm3 Seg Neutrophils % (40.0-70.0) % POC ABG pO2 57 L (80-105) Glucose (75-100) mg/dL Assessment and Plan - Patient Problems (1) Acute asthma exacerbation Status: Acute Qualifiers: Asthma severity: severe Asthma persistence: unspecified Qualified Code(s) : J45.901 - Unspecified asthma with (acute) exacerbation Plan to address problem: Pt left AMA prior to completion of workup, and treatment (2) Acute respiratory failure with hypoxemia Status: Acute Plan to address problem: Pt left AMA (3) DVT prophylaxis Status: Acute Plan to address problem: SCD to BLE while in bed.
[2018-03-17] MEDS ORDERED: ZOFRAN IV PRN (19:08)
[2018-03-17] MEDS ORDERED: TYLENOL PO PRN (19:08)
[2018-03-17] MEDS ORDERED: SODIUM CHLORIDE FLUSH SYRINGE 10 ML IV PRN (19:08)
[2018-03-17] MEDS ORDERED: PROVENTIL IH PRN (19:08)
[2018-03-17 19:14] VITALS: BP 132/86
[2018-03-17] MEDS ORDERED: ZITHROMAX 500 MG in NACL 0.9% 250ML 250 ML IV SCH (20:00)
[2018-03-17] MEDS ORDERED: SODIUM CHLORIDE FLUSH SYRINGE 10 ML IV SCH (22:00)
[2018-03-17] MEDS ORDERED: SOLU-Medrol IV SCH (23:00)
--- NOTE | 2018-03-19 08:08 | XRay Report ---
FINAL REPORT PROCEDURE: Portable upright chest x-ray TECHNIQUE: Chest radiograph portable AP view. CPT 53959 HISTORY: SOB COMPARISON: No prior studies are available for comparison. FINDINGS: Heart: Normal size. Mediastinum/Vessels: Normal. Lungs/Pleural space: Clear. Bony thorax: No acute osseous abnormality. Life support devices: None. IMPRESSION: No acute cardiopulmonary abnormality.
== END 2018-03-17 19:23 | disposition left against medical advice (07) ==
LOC: ED 13:39
DX: J45.22 Mild intermittent asthma with status asthmaticus (principal); J96.01 Acute respiratory failure with hypoxia; E11.9 Type 2 diabetes mellitus without complications; Z79.4 Long term (current) use of insulin
CPT/HCPCS: 36415; 71045; 80048; 82803; 83880; 84484; 85025; 94640; 96365; 96375; 99285; J2270; J2405; J2930; J3475; J7030; J0456; J7050

== ENCOUNTER 2018-04-07 08:55 | Emergency (ER) | payer OTHER ==
[2018-04-07] MEDS ORDERED: ATROVENT IH ONE (09:07)
[2018-04-07] MEDS ORDERED: PROVENTIL IH ONE ×4 (09:07→12:21)
[2018-04-07] MEDS ORDERED: MOTRIN PO ONE (09:27)
[2018-04-07] MEDS ORDERED: NORCO 5/325 PO ONE (09:27)
--- NOTE | 2018-04-07 09:50 | Emergency Department Report ---
HPI - General Chief Complaint: Adult Asthma Time Seen by Provider: 04/07/18 09:18 - HPI HPI: Room 24 The patient is a 43-year-old male presenting with a chief complaint of shortness of breath. The patient states he has a history of asthma and developed an exacerbation yesterday. The patient says yesterday he was short of breath or cough is nonproductive. The patient states he's been using his nebulizer but has not helped. Patient denies fever or rhinorrhea. Patient states since he's been in the emergency department he's developed some soreness in his back from frequent coughing. Location: Lungs Duration: Constant since yesterday Quality: [See above] Severity: [See above] Modifying factors: [see above] Context: [see above] Mode of transportation: [not driving] ED Past Medical Hx - Past Medical History Hx Diabetes: Yes Hx Asthma: Yes Additional medical history: Hernia - Surgical History Additional Surgical History: Skin graft, Pelvic reconstruction, Hernia repair - Family History Family history: no significant - Social History Smoking Status: Never Smoker Substance Use Type: None (denies illicit drug use) - Medications Home Medications: Home Medications Medication Instructions Recorded Confirmed Last Taken Type Albuterol Sulfate [Albuterol 0.63% 0.63 mg IH Q4HR PRN #2 ml 01/25/18 01/31/18 01/30/18 Rx NEBS] Albuterol Sulfate [Albuterol 0.63% 0.63 mg IH TID PRN #1 box 01/31/18 Unknown Rx NEBS] Albuterol Sulfate [Proair 90 mcg IH Q4HR PRN #2 aer.pow.ba 01/31/18 Unknown Rx Respiclick] Azithromycin [Zithromax TAB] 500 mg PO QDAY #5 tablet 01/31/18 Unknown Rx Budesonide [Pulmicort] 0.25 mg IH Q12HR #1 box 01/31/18 Unknown Rx Insulin NPH Hum/Reg Insulin Hm 25 unit SQ BID 01/31/18 01/31/18 01/30/18 History [Humulin 70-30 Vial] Ipratropium [Atrovent NEB] 0.5 mg IH Q8HRT #1 box 01/31/18 Unknown Rx Prednisone [predniSONE 10 mg 10 mg PO .TAPER #1 tab.ds.pk 07/25/18 Unknown Rx (6-Day Pack, 21 Tabs)] HYDROcodone/APAP 5-325 [[place] 1 - 2 each PO Q6HR PRN #10 tablet 04/07/18 Unknown Rx 5/325] Ibuprofen [Motrin 800 MG tab] 800 mg PO Q8HR PRN #20 tablet 04/07/18 Unknown Rx Prednisone [predniSONE 10 mg 10 mg PO .TAPER #1 tab.ds.pk 04/07/18 Unknown Rx (6-Day Pack, 21 Tabs)] ED Review of Systems ROS: Stated complaint: DAVID Other details as noted in HPI Constitutional: denies: fever Eyes: denies: eye pain ENT: denies: throat pain Respiratory: cough, shortness of breath Cardiovascular: denies: chest pain Endocrine: no symptoms reported Gastrointestinal: denies: abdominal pain Genitourinary: denies: dysuria Musculoskeletal: myalgia Neurological: denies: headache Physical Exam - Physical Exam Vital Signs: Vital Signs 04/07/18 04/07/18 09:08 09:09 Pulse Rate 117 H Pulse Rate [ 118 H Posterior Bilateral Throughout] Respiratory 18 20 Rate Respiratory 24 Rate [Posterior Bilateral Throughout] Blood Pressure 148/90 [Left] O2 Sat by Pulse 92 92 Oximetry Physical Exam: GENERAL: The patient is well-developed well-nourished male lying on stretcher exhibiting increased work of breathing. [] HEENT: Normocephalic. Atraumatic. Extraocular motions are intact. Patient has moist mucous membranes. NECK: Supple. Trachea midline CHEST/LUNGS: Diffuse wheezing. There is moderate respiratory distress noted. There is accessory muscle use HEART/CARDIOVASCULAR: Regular. There is tachycardia. There is no gallop rub or murmur. ABDOMEN: Abdomen is soft, nontender. Patient has normal bowel sounds. There is no abdominal distention. SKIN: There is no rash. There is no diaphoresis. NEURO: The patient is awake, alert, and oriented. The patient is cooperative. The patient has no focal neurologic deficits. The patient has normal speech MUSCULOSKELETAL:There is no evidence of acute injury. ED Course Vital Signs 04/07/18 04/07/18 09:08 09:09 Pulse Rate 117 H Pulse Rate [ 118 H Posterior Bilateral Throughout] Respiratory 18 20 Rate Respiratory 24 Rate [Posterior Bilateral Throughout] Blood Pressure 148/90 [Left] O2 Sat by Pulse 92 92 Oximetry - Reevaluation(s) Reevaluation #1: 04/07/18 10:36 Patient states he is improving. Requests medication for cough Reevaluation #2: 04/07/18 11:35 Patient states he feels improved. Trace extremity wheezes. Will administer another neb Reevaluation #3: 04/07/18 13:36 Patient states he feels improved. SPO2 95% on room air ED Medical Decision Making - Differential Diagnosis acute asthma exacerbation Critical care attestation.: If time is entered above; I have spent that time in minutes in the direct care of this critically ill patient, excluding procedure time. ED Disposition Clinical Impression: Acute asthma exacerbation, Shortness of breath, Muscle strain Disposition: TO HOME OR SELFCARE Is pt being admited?: No Does the pt Need Aspirin: No Condition: Stable Instructions: Asthma (ED) Additional Instructions: Return to the emergency department immediately should you develop worsening symptoms, fever, inability to tolerate food or liquid or any other concerns. Prescriptions: HYDROcodone/APAP 5-325 [[place] 5/325] 1 - 2 each PO Q6HR PRN #10 tablet PRN Reason: Pain Ibuprofen [Motrin 800 MG tab] 800 mg PO Q8HR PRN #20 tablet PRN Reason: Pain, Moderate (4-6) Prednisone [predniSONE 10 mg (6-Day Pack, 21 Tabs)] 10 mg PO .TAPER #1 tab.ds.pk Referrals: PRIMARY CARE, [Primary Care Provider] - 3-5 Days LAUREN RICE MD [Staff Physician] - 3-5 Days (Dr. Hawk Beckford is a proposal lead writer. Please follow-up with him or your own proposal lead writer for further evaluation) Time of Disposition: 13:39
[2018-04-07] MEDS ORDERED: TESSALON PERLES PO ONE (10:35)
[2018-04-07] MEDS: ATROVENT IH ONE (11:35)
[2018-04-07 13:37] VITALS: BP 140/88
== END 2018-04-07 14:04 | disposition home or self-care (01) ==
LOC: ED 08:55
DX: T14.8XXA Other injury of unspecified body region, initial encounter (principal); J45.901 Unspecified asthma with (acute) exacerbation; X58.XXXA Exposure to other specified factors, initial encounter; Y93.89 Activity, other specified; Y92.89 Other specified places as the place of occurrence of the external cause; Y99.8 Other external cause status
CPT/HCPCS: 94640; 94644; 99283

== ENCOUNTER 2018-04-23 18:29 | Emergency (ER) | payer OTHER ==
[2018-04-23] MEDS ORDERED: PROVENTIL IH ONE ×2 (18:54→18:58)
[2018-04-23] MEDS ORDERED: ATROVENT IH ONE ×2 (18:54→18:59)
[2018-04-23] MEDS ORDERED: SOLU-Medrol IV ONE (19:02)
--- NOTE | 2018-04-23 19:09 | Emergency Department Report ---
ED Shortness of Breath HPI - General Chief Complaint: Dyspnea/Respdistress Stated Complaint: DAVID Time Seen by Provider: 04/23/18 18:52 Source: patient Mode of arrival: Wheelchair Limitations: No Limitations, Other - History of Present Illness Initial Comments: 43 yo M presents c/o SOB that has gradually increased over the last day. Patient reports that symptoms today are identical to previous exacerbations. Patient denies chest pain and vomiting cough recent travel or sick contacts. Patient reports that he has been using his own medications at home with minimal relief which is what warranted ED evaluation MD Complaint: shortness of breath -: Gradual Severity: moderate Known History Of: asthma Treatments Prior to Arrival: oxygen - Related Data Home Oxygen Therapy: No Home Medications Medication Instructions Recorded Confirmed Last Taken Insulin NPH Hum/Reg Insulin Hm 25 unit SQ BID 01/31/18 01/31/18 01/30/18 [Humulin 70-30 Vial] Previous Rx's Medication Instructions Recorded Last Taken Type Albuterol Sulfate [Albuterol 0.63% 0.63 mg IH Q4HR PRN #2 ml 01/25/18 01/30/18 Rx NEBS] Albuterol Sulfate [Albuterol 0.63% 0.63 mg IH TID PRN #1 box 01/31/18 Unknown Rx NEBS] Albuterol Sulfate [Proair 90 mcg IH Q4HR PRN #2 aer.pow.ba 01/31/18 Unknown Rx Respiclick] Azithromycin [Zithromax TAB] 500 mg PO QDAY #5 tablet 01/31/18 Unknown Rx Budesonide [Pulmicort] 0.25 mg IH Q12HR #1 box 01/31/18 Unknown Rx Ipratropium [Atrovent NEB] 0.5 mg IH Q8HRT #1 box 01/31/18 Unknown Rx Prednisone [predniSONE 10 mg 10 mg PO .TAPER #1 tab.ds.pk 01/31/18 Unknown Rx (6-Day Pack, 21 Tabs)] HYDROcodone/APAP 5-325 [[place] 1 - 2 each PO Q6HR PRN #10 tablet 04/07/18 Unknown Rx 5/325] Ibuprofen [Motrin 800 MG tab] 800 mg PO Q8HR PRN #20 tablet 04/07/18 Unknown Rx Prednisone [predniSONE 10 mg 10 mg PO .TAPER #1 tab.ds.pk 04/07/18 Unknown Rx (6-Day Pack, 21 Tabs)] Allergies Allergy/AdvReac Type Severity Reaction Status Date / Time No Known Allergies Allergy Verified 01/24/18 19:06 ED Review of Systems ROS: Stated complaint: DAVID Other details as noted in HPI Comment: All other systems reviewed and negative Constitutional: see HPI Eyes: as per HPI ENT: denies: ear pain, throat pain, dental pain, hearing loss, epistaxis, congestion Respiratory: see HPI, shortness of breath, SOB with exertion, SOB at rest, wheezing. denies: cough Cardiovascular: dyspnea on exertion. denies: chest pain, palpitations, edema, syncope, paroxysmal nocturnal dyspnea Endocrine: no symptoms reported Gastrointestinal: denies: abdominal pain, nausea, vomiting Genitourinary: as per HPI Musculoskeletal: denies: back pain, arthralgia Skin: denies: as per HPI ED Past Medical Hx - Past Medical History Hx Diabetes: Yes Hx Asthma: Yes Additional medical history: Hernia - Surgical History Additional Surgical History: Skin graft, Pelvic reconstruction, Hernia repair - Social History Smoking Status: Never Smoker Substance Use Type: None - Medications Home Medications: Home Medications Medication Instructions Recorded Confirmed Last Taken Type Albuterol Sulfate [Albuterol 0.63% 0.63 mg IH Q4HR PRN #2 ml 01/25/18 01/31/18 01/30/18 Rx NEBS] Albuterol Sulfate [Albuterol 0.63% 0.63 mg IH TID PRN #1 box 01/31/18 Unknown Rx NEBS] Albuterol Sulfate [Proair 90 mcg IH Q4HR PRN #2 aer.pow.ba 01/31/18 Unknown Rx Respiclick] Azithromycin [Zithromax TAB] 500 mg PO QDAY #5 tablet 01/31/18 Unknown Rx Budesonide [Pulmicort] 0.25 mg IH Q12HR #1 box 01/31/18 Unknown Rx Insulin NPH Hum/Reg Insulin Hm 25 unit SQ BID 01/31/18 01/31/18 01/30/18 History [Humulin 70-30 Vial] Ipratropium [Atrovent NEB] 0.5 mg IH Q8HRT #1 box 01/31/18 Unknown Rx Prednisone [predniSONE 10 mg 10 mg PO .TAPER #1 tab.ds.pk 01/31/18 Unknown Rx (6-Day Pack, 21 Tabs)] HYDROcodone/APAP 5-325 [[place] 1 - 2 each PO Q6HR PRN #10 tablet 04/07/18 Unknown Rx 5/325] Ibuprofen [Motrin 800 MG tab] 800 mg PO Q8HR PRN #20 tablet 04/07/18 Unknown Rx Prednisone [predniSONE 10 mg 10 mg PO .TAPER #1 tab.ds.pk 04/07/18 Unknown Rx (6-Day Pack, 21 Tabs)] ED Physical Exam - General Limitations: No Limitations General appearance: alert, in distress - Head Head exam: Present: atraumatic - Eye Eye exam: Present: normal appearance, PERRL Pupils: Present: normal accommodation - ENT ENT exam: Present: normal exam - Respiratory Respiratory exam: Present: respiratory distress, wheezes, accessory muscle use, decreased breath sounds. Absent: rales, rhonchi, stridor, chest wall tenderness - Cardiovascular Cardiovascular Exam: Present: tachycardia - GI/Abdominal GI/Abdominal exam: Present: soft. Absent: distended, tenderness, guarding - Rectal Rectal exam: Present: deferred - Extremities Exam Extremities exam: Present: normal inspection, full ROM - Back Exam Back exam: Present: normal inspection - Neurological Exam Neurological exam: Present: alert, oriented X3, CN II-XII intact - Psychiatric Psychiatric exam: Present: normal affect - Skin Skin exam: Present: warm, dry ED Course Vital Signs 04/23/18 04/23/18 04/23/18 18:34 18:51 19:00 Temperature 98.7 F Pulse Rate 130 H 125 H Respiratory 26 H Rate Blood Pressure 146/100 170/117 Blood Pressure [Right] O2 Sat by Pulse 98 99 97 Oximetry 04/23/18 04/23/18 04/23/18 19:15 19:20 19:30 Temperature Pulse Rate 127 H 128 H Respiratory 20 26 H 22 Rate Blood Pressure 170/117 182/100 Blood Pressure [Right] O2 Sat by Pulse 98 94 Oximetry 04/23/18 04/23/18 04/23/18 19:45 20:00 20:15 Temperature Pulse Rate 130 H 118 H 117 H Respiratory 25 H 19 20 Rate Blood Pressure 182/100 186/131 175/136 Blood Pressure [Right] O2 Sat by Pulse 93 97 96 Oximetry 04/23/18 04/23/18 04/23/18 20:31 20:45 21:01 Temperature Pulse Rate 122 H 120 H 119 H Respiratory 24 26 H 26 H Rate Blood Pressure 182/100 182/100 182/100 Blood Pressure [Right] O2 Sat by Pulse 98 98 97 Oximetry 04/23/18 04/23/18 04/23/18 21:15 21:31 21:36 Temperature Pulse Rate 113 H 110 H 114 H Respiratory 24 26 H 20 Rate Blood Pressure 182/100 182/100 Blood Pressure 154/103 [Right] O2 Sat by Pulse 98 100 Oximetry - Reevaluation(s) Reevaluation #1: 04/23/18 19:23 43-year-old male who presents with shortness of breath. Symptoms markedly improved patient currently on BiPAP. Patient sleeping currently in no distress. Patient to be admitted to internal medicine service. Patient stable for admission ED Medical Decision Making - Lab Data Result diagrams: 04/23/18 18:59 04/23/18 18:59 - EKG Data Rate: tachycardia - EKG Data Interpretation: no acute changes 04/23/18 20:02 Sinus tachycardia, normal axis, no ST elevation or depression, - Radiology Data IMPRESSION: Negative single-view chest - Medical Decision Making 43-year-old male chief complaint shortness of breath identical to previous exacerbations. Patient currently sleeping comfortably on BiPAP. Symptoms markedly improved. Case discussed in detail with the internal medicine doctor. Patient stable for admission. 22:28 informed by admitting physician the patient has decided to leave AGAINST MEDICAL ADVICE. I discussed at length with patient the risk of leaving including but not limited to and patient still wishes to leave. Patient has capacity to make decisions in my opinion. Patient is alert and oriented 3. Patient has repeated the risk of leaving. I have urged patient to follow primary care doctor and return to the ED as soon as possible if he should change his mind. Critical care time in (mins) excluding proc time.: 45 Critical care attestation.: If time is entered above; I have spent that time in minutes in the direct care of this critically ill patient, excluding procedure time. ED Disposition Clinical Impression: SOB (shortness of breath) Disposition: [id number] LEFT AGAINST MED ADVICE Is pt being admited?: Yes Does the pt Need Aspirin: No Condition: Poor Referrals: PRIMARY CARE, [Primary Care Provider] - 3-5 Days Forms: AMA Form Time of Disposition: 22:34
[2018-04-23 19:27] LABS: BUN/Creatinine Ratio 17; Blood Urea Nitrogen 19 mg/dL (9-20); Calcium 9.6 mg/dL (8.4-10.2); Hemolysis Index 96
[2018-04-23] MEDS ORDERED: DUONEB *Not for PRN Use IH ONE ×2 (19:33→19:34)
--- NOTE | 2018-04-23 20:07 | XRay Report ---
FINAL REPORT EXAM: XR CHEST 1V AP HISTORY: sob TECHNIQUE: upright single view chest PRIORS: Comparison is dated March 17, 2018 FINDINGS: Cardiac and mediastinal contours are unremarkable. No focal pulmonary infiltrate is identified. No pleural fluid collection seen. Pulmonary vasculature is unremarkable. IMPRESSION: Negative single-view chest
[2018-04-23 20:26] LABS: Basophils # (Auto) 0.2 K/mm3 (0.0-0.1); Eosinophils # (Auto) 1.4 K/mm3 (0.0-0.4); Eosinophils % (Auto) 9.1 % (0.0-4.3); Hematocrit 47.2 % (35.5-45.6); Hemoglobin 15.5 gm/dl (11.8-15.2); Lymphocytes # (Auto) 2.6 K/mm3 (1.2-5.4); Lymphocytes % (Auto) 17.4 % (13.4-35.0); Mean Corpuscular HGB Conc 33 % (32-34); Mean Corpuscular Hemoglobin 27 pg (28-32); Mean Corpuscular Volume 82 fl (84-94); Monocytes # (Auto) 1.1 K/mm3 (0.0-0.8); Monocytes % (Auto) 7.2 % (0.0-7.3); Platelet Count 209 K/mm3 (140-440); Red Blood Count 5.73 M/mm3 (3.65-5.03); Red Cell Distribution Width 14.2 % (13.2-15.2)
[2018-04-23 22:36] VITALS: BP 131/98
== END 2018-04-23 22:35 | disposition left against medical advice (07) ==
LOC: ED 18:29
DX: R06.02 Shortness of breath (principal); J45.909 Unspecified asthma, uncomplicated; E11.9 Type 2 diabetes mellitus without complications
CPT/HCPCS: 36415; 71045; 80048; 83880; 85025; 87040; 93005; 93010; 94640; 96374; 99291; J2930

== ENCOUNTER 2018-04-26 19:30 | Emergency (ER) | payer OTHER ==
[2018-04-26] MEDS ORDERED: SOLU-Medrol IV ONE (19:52)
--- NOTE | 2018-04-26 19:55 | Emergency Department Report ---
ED Shortness of Breath HPI - General Stated Complaint: DIFFICULTY IN BREATHING Time Seen by Provider: 04/26/18 19:50 Source: patient, EMS Mode of arrival: Stretcher Limitations: No Limitations - History of Present Illness Initial Comments: She is a 43-year-old male that presents emergency room with complaints of shortness of breath and chest pain that started 60 minutes prior to arrival patient was brought in by EMS. Patient was given albuterol Atrovent neb in route and has minimal improvement. Patient also received an IV from EMS. Patient states the chest pain is a 10 out of 10. Patient states shortness of breath is worsening. Patient states the shortness of breath and chest pain are better with rest and worse with exertion and deep breath. Patient states he has bad asthma. Patient states that he has had this in the past. MD Complaint: shortness of breath -: Sudden Severity: severe Pain Scale: 10 Quality: throbbing, sharp Consistency: constant Improves With: oxygen, rest, bronchodilators Worsens With: lying flat, exertion Known History Of: COPD, asthma Context: medication noncompliance, anxiety Associated Symptoms: chest pain, pain with inspiration, cough, orhopnia Treatments Prior to Arrival: oxygen, bronchodilator - Related Data Home Oxygen Therapy: No Home Medications Medication Instructions Recorded Confirmed Last Taken Insulin NPH Hum/Reg Insulin Hm 25 unit SQ BID 01/31/18 04/26/18 01/30/18 [Humulin 70-30 Vial] Previous Rx's Medication Instructions Recorded Last Taken Type Albuterol Sulfate [Albuterol 0.63% 0.63 mg IH Q4HR PRN #2 ml 01/25/18 01/30/18 Rx NEBS] Albuterol Sulfate [Albuterol 0.63% 0.63 mg IH TID PRN #1 box 01/31/18 Unknown Rx NEBS] Albuterol Sulfate [Proair 90 mcg IH Q4HR PRN #2 aer.pow.ba 01/31/18 Unknown Rx Respiclick] Budesonide [Pulmicort] 0.25 mg IH Q12HR #1 box 01/31/18 Unknown Rx Ipratropium [Atrovent NEB] 0.5 mg IH Q8HRT #1 box 01/31/18 Unknown Rx Prednisone [predniSONE 10 mg 10 mg PO .TAPER #1 tab.ds.pk 01/31/18 Unknown Rx (6-Day Pack, 21 Tabs)] HYDROcodone/APAP 5-325 [[place] 1 - 2 each PO Q6HR PRN #10 tablet 04/07/18 Unknown Rx 5/325] Ibuprofen [Motrin 800 MG tab] 800 mg PO Q8HR PRN #20 tablet 04/07/18 Unknown Rx Prednisone [predniSONE 10 mg 10 mg PO .TAPER #1 tab.ds.pk 04/07/18 Unknown Rx (6-Day Pack, 21 Tabs)] Allergies Allergy/AdvReac Type Severity Reaction Status Date / Time No Known Allergies Allergy Verified 01/24/18 19:06 ED Review of Systems ROS: Stated complaint: DIFFICULTY IN BREATHING Other details as noted in HPI Constitutional: denies: chills, fever Eyes: denies: eye pain, eye discharge, vision change ENT: denies: ear pain, throat pain Respiratory: cough, shortness of breath, SOB with exertion, SOB at rest, wheezing Cardiovascular: chest pain, dyspnea on exertion. denies: palpitations Endocrine: no symptoms reported Gastrointestinal: denies: abdominal pain, nausea, diarrhea Genitourinary: denies: urgency, dysuria Musculoskeletal: denies: back pain, joint swelling, arthralgia Skin: denies: rash, lesions Neurological: denies: headache, weakness, paresthesias Psychiatric: denies: anxiety, depression Hematological/Lymphatic: denies: easy bleeding, easy bruising ED Past Medical Hx - Past Medical History Previous Medical History?: Yes Hx Diabetes: Yes Hx Asthma: Yes Additional medical history: Hernia - Surgical History Past Surgical History?: Yes Additional Surgical History: Skin graft, Pelvic reconstruction, Hernia repair - Family History Family history: no significant - Social History Smoking Status: Never Smoker Substance Use Type: None - Medications Home Medications: Home Medications Medication Instructions Recorded Confirmed Last Taken Type Albuterol Sulfate [Albuterol 0.63% 0.63 mg IH Q4HR PRN #2 ml 01/25/18 04/26/18 01/30/18 Rx NEBS] Albuterol Sulfate [Albuterol 0.63% 0.63 mg IH TID PRN #1 box 01/31/18 04/26/18 Unknown Rx NEBS] Albuterol Sulfate [Proair 90 mcg IH Q4HR PRN #2 aer.pow.ba 01/31/18 04/26/18 Unknown Rx Respiclick] Budesonide [Pulmicort] 0.25 mg IH Q12HR #1 box 01/31/18 04/26/18 Unknown Rx Insulin NPH Hum/Reg Insulin Hm 25 unit SQ BID 01/31/18 04/26/18 01/30/18 History [Humulin 70-30 Vial] Ipratropium [Atrovent NEB] 0.5 mg IH Q8HRT #1 box 01/31/18 04/26/18 Unknown Rx Prednisone [predniSONE 10 mg 10 mg PO .TAPER #1 tab.ds.pk 01/31/18 04/26/18 Unknown Rx (6-Day Pack, 21 Tabs)] HYDROcodone/APAP 5-325 [[place] 1 - 2 each PO Q6HR PRN #10 tablet 04/07/18 Unknown Rx 5/325] Ibuprofen [Motrin 800 MG tab] 800 mg PO Q8HR PRN #20 tablet 04/07/18 04/26/18 Unknown Rx Prednisone [predniSONE 10 mg 10 mg PO .TAPER #1 tab.ds.pk 04/07/18 04/26/18 Unknown Rx (6-Day Pack, 21 Tabs)] ED Physical Exam - General General appearance: alert, in distress - Head Head exam: Present: atraumatic, normocephalic - Eye Eye exam: Present: normal appearance - ENT ENT exam: Present: mucous membranes moist - Neck Neck exam: Present: normal inspection - Respiratory Respiratory exam: Present: respiratory distress, wheezes, decreased breath sounds - Cardiovascular Cardiovascular Exam: Present: regular rate, normal rhythm. Absent: systolic murmur, diastolic murmur, rubs, gallop - GI/Abdominal GI/Abdominal exam: Present: soft, normal bowel sounds - Rectal Rectal exam: Present: deferred - Extremities Exam Extremities exam: Present: normal inspection - Back Exam Back exam: Present: normal inspection - Neurological Exam Neurological exam: Present: alert, oriented X3 - Psychiatric Psychiatric exam: Present: normal affect, normal mood - Skin Skin exam: Present: warm, dry, intact, normal color. Absent: rash ED Course Vital Signs 04/26/18 04/26/18 04/26/18 19:51 20:00 21:00 Temperature 98.3 F Pulse Rate 126 H 128 H 118 H Respiratory 27 H 31 H 17 Rate Blood Pressure 148/103 137/98 126/87 Blood Pressure 148/103 [Left] O2 Sat by Pulse 99 96 95 Oximetry 04/26/18 04/26/18 04/26/18 21:31 22:00 22:31 Temperature Pulse Rate 116 H 111 H 111 H Respiratory 16 22 23 Rate Blood Pressure 137/98 135/96 135/96 Blood Pressure [Left] O2 Sat by Pulse 94 94 94 Oximetry - Reevaluation(s) Reevaluation #1: Examination examination immediately upon arrival with EMS. Patient will be given albuterol and Solu-Medrol and a mag run. 04/26/18 19:50 Patient continues to have mild wheezing after initial therapy. Patient will be given another albuterol treatment. 04/26/18 22:00 Patient has improved and discussed all results with patient. Discussed plan of care and admission with patient. Patient refuses to be admitted. Patient signed AMA. Discussed all risks patient patient voiced understanding of rest. Patient left hospital AGAINST MEDICAL ADVICE. 04/26/18 22:46 ED Medical Decision Making - Lab Data Result diagrams: 04/26/18 19:57 04/26/18 19:57 - EKG Data -: EKG Interpreted by [facility] EKG shows normal: sinus rhythm, axis, intervals, QRS complexes, ST-T waves Rate: tachycardia - Radiology Data Radiology results: report reviewed FINAL REPORT PROCEDURE: Chest. TECHNIQUE: Portable AP view. HISTORY: Dyspnea. COMPARISON: Chest 04/23/2018. FINDINGS: The heart size is normal. The lungs are clear but hyperinflated. There are no pleural effusions. The soft tissues and regional skeleton are unremarkable. IMPRESSION: COPD. Transcribed By: MRM Dictated By: ALANA IVERSON MD Electronically Authenticated By: ALANA IVERSON MD Signed Date/Time: 04/26/182103 - Medical Decision Making Patient 43-year-old male presents emergency room with respiratory distress and acute COPD, asthma exacerbation. Patient responded well to therapy. Plan of care for the patient was to admit patient to hospital service for further evaluation and treatment and monitoring. Patient refused to be admitted and signed out AMA. Discussed all results with patient. Patient voiced understanding of risks of signing out AMA. Patient left the hospital on his own recognizance. - Differential Diagnosis shortness of breath. Chest pain. Asthma exacerbation. Wheezing. COPD Critical Care Time: Yes Critical care attestation.: If time is entered above; I have spent that time in minutes in the direct care of this critically ill patient, excluding procedure time. Critical Care Time: 35 minutes ED Disposition Clinical Impression: Respiratory distress, Hypoxia, Tachycardia Acute asthma exacerbation Qualifiers: Asthma severity: severe Asthma persistence: unspecified Qualified Code(s): J45.901 - Unspecified asthma with (acute) exacerbation Disposition: LEFT AGAINST MED ADVICE Is pt being admited?: No Does the pt Need Aspirin: No Condition: Undetermined Referrals: PRIMARY CARE, [Primary Care Provider] - 3-5 Days Forms: AMA Form Time of Disposition: 22:49
[2018-04-26] MEDS ORDERED: MAGNESIUM SULFATE 2GM/50ML 2 GM/50 ML BAG IV ONE (20:00)
[2018-04-26 20:09] LABS: Basophils # (Auto) 0.1 K/mm3 (0.0-0.1); Basophils % (Auto) 0.7 % (0.0-1.8); Eosinophils # (Auto) 1.6 K/mm3 (0.0-0.4); Eosinophils % (Auto) 11.7 % (0.0-4.3); Hematocrit 46.1 % (35.5-45.6); Hemoglobin 15.2 gm/dl (11.8-15.2); Lymphocytes # (Auto) 2.8 K/mm3 (1.2-5.4); Lymphocytes % (Auto) 20.2 % (13.4-35.0); Mean Corpuscular HGB Conc 33 % (32-34); Mean Corpuscular Hemoglobin 27 pg (28-32); Mean Corpuscular Volume 82 fl (84-94); Monocytes # (Auto) 0.9 K/mm3 (0.0-0.8); Monocytes % (Auto) 6.7 % (0.0-7.3); Platelet Count 212 K/mm3 (140-440); Red Blood Count 5.64 M/mm3 (3.65-5.03); Red Cell Distribution Width 13.8 % (13.2-15.2)
[2018-04-26] MEDS ORDERED: ASPIRIN PO ONE (20:09)
[2018-04-26] MEDS ORDERED: MORPHINE IV ONE (20:09)
[2018-04-26 20:41] LABS: Alanine Aminotransferase 74 units/L (7-56); Albumin 4.2 g/dL (3.9-5); BUN/Creatinine Ratio 13; Blood Urea Nitrogen 13 mg/dL (9-20); Calcium 9.9 mg/dL (8.4-10.2); Hemolysis Index 5
[2018-04-26] MEDS ORDERED: NACL 0.9% 1000 ML 1,000 ML IV ONE (20:42)
[2018-04-26] MEDS ORDERED: DUONEB *Not for PRN Use IH ONE (20:42)
--- NOTE | 2018-04-26 21:06 | XRay Report ---
FINAL REPORT PROCEDURE: Chest. TECHNIQUE: Portable AP view. HISTORY: Dyspnea. COMPARISON: Chest 04/23/2018. FINDINGS: The heart size is normal. The lungs are clear but hyperinflated. There are no pleural effusions. The soft tissues and regional skeleton are unremarkable. IMPRESSION: COPD.
[2018-04-26 22:51] VITALS: BP 135/96
[2018-04-26 22:58] LABS: Bilirubin,Urine NEG (Negative); Blood,Urine NEG (Negative); Color,Urine Yellow (Yellow); Mucus,Urine FEW /HPF; Protein,Urine <15 mg/dL mg/dL (Negative); Urobilinogen,Urine < 2.0 mg/dL (<2.0)
[2018-04-26 23:04] LABS: Amphetamine Screen,Urine PRESUMPTIVE NEGATIVE; Benzodiazepines Screen,Urine PRESUMPTIVE NEGATIVE; Cannabinoid Screen,Urine PRESUMPTIVE NEGATIVE; Cocaine Screen,Urine PRESUMPTIVE NEGATIVE; Methadone Screen,Urine PRESUMPTIVE NEGATIVE; Opiate Screen,Urine PRESUMPTIVE NEGATIVE
== END 2018-04-26 23:15 | disposition left against medical advice (07) ==
LOC: ED 19:30
DX: R06.03 Acute respiratory distress (principal); R09.02 Hypoxemia; R00.0 Tachycardia, unspecified; J45.901 Unspecified asthma with (acute) exacerbation; E11.9 Type 2 diabetes mellitus without complications; Z79.4 Long term (current) use of insulin
CPT/HCPCS: 36415; 71045; 80053; 80307; 81001; 82140; 82550; 82553; 84484; 85025; 85379; 93005; 93010; 96365; 96375; 99291; J2270; J2930; J3475; J7030; 96361; 99285

== ENCOUNTER 2018-07-18 18:19 | Emergency (ER) | payer OTHER ==
[2018-07-18] MEDS ORDERED: PROVENTIL IH ONE ×2 (18:26→18:30)
[2018-07-18] MEDS ORDERED: ATROVENT IH ONE ×2 (18:26→18:31)
[2018-07-18] MEDS ORDERED: SOLU-Medrol IV ONE (19:41)
--- NOTE | 2018-07-18 19:41 | Emergency Department Report ---
ED Asthma HPI - General Chief Complaint: Adult Asthma Stated Complaint: ASTHMA ATTACK Time Seen by Provider: 07/18/18 19:36 Source: patient Mode of arrival: Ambulatory Limitations: No Limitations - History of Present Illness Initial Comments: This is a 43-year-old male with history of asthma on albuterol inhaler. He states that he ran out of is albuterol nebulizer medication. He does not primary care physician Dr. Sood. Patient was last here on the 07 0807/29/2017 and was treated for asthma and on Singulair, Deltasone. He was here several times in 2018 for similar incident despite having primary care physician. Patient complain of cough and wheeze does not relieved by albuterol inhaler. He said he has pain with cough and to his chest but no pain without coughing. Reports some difficulty in breathing . Denies any nausea or vomiting. Denies any fever or chills. MD Complaint: "asthma attack", wheezing Onset/Timin -: days(s) Asthma History: childhood onset, history of frequent attac, history of prior ED visit Severity: similar to prior Context: recent URI, ran out of meds Associated Symptoms: dry cough. denies: productive cough, fever, chest pain, hemoptysis, leg edema, syncope Treatments Prior to Arrival: other (none) - Related Data Current Asthma Therapy: inhaled bronchodilator Home Medications Medication Instructions Recorded Confirmed Last Taken Insulin NPH Hum/Reg Insulin Hm 25 unit SQ BID 01/31/18 04/26/18 01/30/18 [Humulin 70-30 Vial] Previous Rx's Medication Instructions Recorded Last Taken Type Albuterol Sulfate [Albuterol 0.63% 0.63 mg IH TID PRN #1 box 01/31/18 Unknown Rx NEBS] Albuterol Sulfate [Proair 90 mcg IH Q4HR PRN #2 aer.pow.ba 01/31/18 Unknown Rx Respiclick] Budesonide [Pulmicort] 0.25 mg IH Q12HR #1 box 01/31/18 Unknown Rx Ipratropium [Atrovent NEB] 0.5 mg IH Q8HRT #1 box 01/31/18 Unknown Rx HYDROcodone/APAP 5-325 [[place] 1 - 2 each PO Q6HR PRN #10 tablet 04/07/18 Unknown Rx 5/325] Ibuprofen [Motrin 800 MG tab] 800 mg PO Q8HR PRN #20 tablet 04/07/18 Unknown Rx Prednisone [predniSONE 10 mg 10 mg PO .TAPER #1 tab.ds.pk 04/07/18 Unknown Rx (6-Day Pack, 21 Tabs)] Albuterol Sulfate [Proair 90 mcg IH Q4HR PRN #2 aer.pow.ba 06/19/18 Unknown Rx Respiclick] Benzonatate [Tessalon Perles] 100 mg PO Q8HR PRN #30 capsule 06/19/18 Unknown Rx predniSONE [Deltasone] 40 mg PO QDAY #8 tab 06/19/18 Unknown Rx ALBUTEROL Inhaler (OR & NICU) 1 puff IH Q4-6H PRN #1 inha 07/09/18 Unknown Rx [ProAir HFA Inhaler] Montelukast [Singulair] 10 mg PO QPM #14 tablet 07/09/18 Unknown Rx predniSONE [Deltasone] 50 mg PO QDAY #7 tab 07/09/18 Unknown Rx ALBUTEROL Inhaler (OR & NICU) 2 puff IH Q6H PRN #1 inhalation 07/18/18 Unknown Rx [ProAir HFA Inhaler] Albuterol Sulfate [Albuterol 0.63% 3 ml IH Q6HR PRN #2 ml 07/18/18 Unknown Rx NEBS] Cetirizine HCl [ZyrTEC] 10 mg PO QAM 14 Days #14 capsule 07/18/18 Unknown Rx Fluticasone [Flonase] 1 spray NS QDAY 14 Days #1 bottle 07/18/18 Unknown Rx Prednisone [predniSONE 10 mg 10 mg PO .TAPER 6 Days #1 tab.ds.pk 07/18/18 Unknown Rx (6-Day Pack, 21 Tabs)] guaiFENesin/CODEINE [Robitussin AC] 10 ml PO QHS PRN #70 oral.liqd 07/18/18 Unknown Rx Allergies Allergy/AdvReac Type Severity Reaction Status Date / Time No Known Allergies Allergy Verified 01/24/18 19:06 ED Review of Systems ROS: Stated complaint: ASTHMA ATTACK Other details as noted in HPI Constitutional: denies: chills, fever ENT: congestion. denies: ear pain, throat pain Respiratory: cough, shortness of breath, wheezing. denies: SOB with exertion, SOB at rest, stridor Cardiovascular: denies: chest pain, palpitations, dyspnea on exertion, edema, syncope, paroxysmal nocturnal dyspnea Gastrointestinal: denies: abdominal pain, nausea, vomiting, diarrhea, constipation, hematemesis, hematochezia Genitourinary: denies: urgency Musculoskeletal: denies: back pain, joint swelling, arthralgia, myalgia Skin: denies: rash Neurological: denies: headache, weakness, numbness, paresthesias, confusion, abnormal gait, vertigo ED Past Medical Hx - Past Medical History Previous Medical History?: Yes Hx Diabetes: Yes Hx Asthma: Yes Additional medical history: Hernia - Surgical History Past Surgical History?: Yes Additional Surgical History: Skin graft, Pelvic reconstruction, Hernia repair - Family History Family history: hypertension - Social History Smoking Status: Never Smoker Substance Use Type: None - Medications Home Medications: Home Medications Medication Instructions Recorded Confirmed Last Taken Type Albuterol Sulfate [Albuterol 0.63% 0.63 mg IH TID PRN #1 box 01/31/18 04/26/18 Unknown Rx NEBS] Albuterol Sulfate [Proair 90 mcg IH Q4HR PRN #2 aer.pow.ba 01/31/18 04/26/18 Unknown Rx Respiclick] Budesonide [Pulmicort] 0.25 mg IH Q12HR #1 box 01/31/18 04/26/18 Unknown Rx Insulin NPH Hum/Reg Insulin Hm 25 unit SQ BID 01/31/18 04/26/18 01/30/18 History [Humulin 70-30 Vial] Ipratropium [Atrovent NEB] 0.5 mg IH Q8HRT #1 box 01/31/18 04/26/18 Unknown Rx HYDROcodone/APAP 5-325 [[place] 1 - 2 each PO Q6HR PRN #10 tablet 04/07/18 04/26/18 Unknown Rx 5/325] Ibuprofen [Motrin 800 MG tab] 800 mg PO Q8HR PRN #20 tablet 04/07/18 04/26/18 Unknown Rx Prednisone [predniSONE 10 mg 10 mg PO .TAPER #1 tab.ds.pk 04/07/18 04/26/18 Unknown Rx (6-Day Pack, 21 Tabs)] Albuterol Sulfate [Proair 90 mcg IH Q4HR PRN #2 aer.pow.ba 06/19/18 Unknown Rx Respiclick] Benzonatate [Tessalon Perles] 100 mg PO Q8HR PRN #30 capsule 06/19/18 Unknown Rx predniSONE [Deltasone] 40 mg PO QDAY #8 tab 06/19/18 Unknown Rx ALBUTEROL Inhaler (OR & NICU) 1 puff IH Q4-6H PRN #1 inha 07/09/18 Unknown Rx [ProAir HFA Inhaler] Montelukast [Singulair] 10 mg PO QPM #14 tablet 07/09/18 Unknown Rx predniSONE [Deltasone] 50 mg PO QDAY #7 tab 07/09/18 Unknown Rx ALBUTEROL Inhaler (OR & NICU) 2 puff IH Q6H PRN #1 inhalation 07/18/18 Unknown Rx [ProAir HFA Inhaler] Albuterol Sulfate [Albuterol 0.63% 3 ml IH Q6HR PRN #2 ml 07/18/18 Unknown Rx NEBS] Cetirizine HCl [ZyrTEC] 10 mg PO QAM 14 Days #14 capsule 07/18/18 Unknown Rx Fluticasone [Flonase] 1 spray NS QDAY 14 Days #1 bottle 07/18/18 Unknown Rx Prednisone [predniSONE 10 mg 10 mg PO .TAPER 6 Days #1 tab.ds.pk 07/18/18 Unknown Rx (6-Day Pack, 21 Tabs)] guaiFENesin/CODEINE [Robitussin AC] 10 ml PO QHS PRN #70 oral.liqd 07/18/18 Unknown Rx ED Physical Exam - General Limitations: No Limitations General appearance: alert, in no apparent distress - Head Head exam: Present: atraumatic, normocephalic, normal inspection - Eye Eye exam: Present: normal appearance, PERRL, EOMI Pupils: Present: normal accommodation - ENT ENT exam: Present: normal exam, normal orophraynx, mucous membranes moist, TM's normal bilaterally, normal external ear exam - Neck Neck exam: Present: normal inspection, full ROM. Absent: tenderness, lymphadenopathy - Respiratory Respiratory exam: Present: respiratory distress (mild), wheezes, accessory muscle use (mild use of accessory muscle), other (dry cough). Absent: rales, rhonchi, stridor, chest wall tenderness, decreased breath sounds, prolonged expiratory - Expanded Respiratory Exam Expanded Location: Wheezes: Right, Left, Upper, Lower - Cardiovascular Cardiovascular Exam: Present: normal rhythm, tachycardia, normal heart sounds. Absent: systolic murmur, diastolic murmur - GI/Abdominal GI/Abdominal exam: Present: soft, normal bowel sounds. Absent: distended, tenderness, guarding, rebound, rigid, organomegaly, mass, bruit, pulsatile mass, hernia - Extremities Exam Extremities exam: Present: normal inspection, full ROM, other (No cce. + 2 pulses in all extremities, no neurovascular compromise). Absent: tenderness, normal capillary refill, pedal edema, joint swelling, calf tenderness - Back Exam Back exam: Present: normal inspection, full ROM, other (ambulates without difficulties). Absent: tenderness, CVA tenderness (R), CVA tenderness (L), muscle spasm, paraspinal tenderness, vertebral tenderness, rash noted - Neurological Exam Neurological exam: Present: alert, oriented X3, normal gait, reflexes normal. Absent: motor sensory deficit - Psychiatric Psychiatric exam: Present: normal affect, normal mood - Skin Skin exam: Present: warm, dry, intact, normal color. Absent: rash ED Course Vital Signs 07/18/18 07/18/18 07/18/18 18:23 18:36 22:21 Temperature 98.7 F 98.5 F Pulse Rate 116 H 110 H Pulse Rate [ 118 H Anterior Bilateral] Respiratory 26 H 16 Rate Respiratory 24 Rate [Anterior Bilateral] Blood Pressure 129/99 Blood Pressure 148/95 [Right] O2 Sat by Pulse 96 98 Oximetry 07/18/18 07/18/18 23:23 23:50 Temperature Pulse Rate 84 99 H Pulse Rate [ Anterior Bilateral] Respiratory 17 Rate Respiratory Rate [Anterior Bilateral] Blood Pressure Blood Pressure [Right] O2 Sat by Pulse 99 Oximetry Vital Signs 07/18/18 07/18/18 07/18/18 18:23 18:36 22:21 Temperature 98.7 F 98.5 F Pulse Rate 116 H 110 H Pulse Rate [ 118 H Anterior Bilateral] Respiratory 26 H 16 Rate Respiratory 24 Rate [Anterior Bilateral] Blood Pressure 129/99 Blood Pressure 148/95 [Right] O2 Sat by Pulse 96 98 Oximetry Vital Signs 07/18/18 07/18/18 07/18/18 18:23 18:36 22:21 Temperature 98.7 F 98.5 F Pulse Rate 116 H 110 H Pulse Rate [ 118 H Anterior Bilateral] Respiratory 26 H 16 Rate Respiratory 24 Rate [Anterior Bilateral] Blood Pressure 129/99 Blood Pressure 148/95 [Right] O2 Sat by Pulse 96 98 Oximetry 07/18/18 23:23 Temperature Pulse Rate 84 Pulse Rate [ Anterior Bilateral] Respiratory Rate Respiratory Rate [Anterior Bilateral] Blood Pressure Blood Pressure [Right] O2 Sat by Pulse Oximetry - Reevaluation(s) Reevaluation #1: 07/18/18 22:00 Patient received albuterol 10 mg and asked for 1 mg nebulizer with still some wheezing and he received Xopenex 2.5 mg nebulizer and the cities feeling better. Upper evaluation no wheezing noted. He received Solu-Medrol 125 mg IV for acute asthma exacerbation. He also received magnesium sulfate 2 g IV and emergency room for his asthma exacerbation. He said he was feeling much better after treatment. ED Medical Decision Making - Radiology Data Radiology results: report reviewed X-ray 2 view of the chest shows negative findings per radiology report. This is reviewed by myself. Unable to open radiology films to possibly results on this chart. - Medical Decision Making This is a 43-year-old male here report that he was having a flare because he is out of his inhaler. He said he usually takes albuterol. Patient was treated with nebulizer treatments to include albuterol 10 mg, Atrovent 1 mg and Xopenex 2.5 mg. He was given Solu-Medrol 125 mg IV and emergency room along with magnesium sulfate 2 g IV. Patient felt better and his lung sounds better after treatment. Patient discharged home with prescription for albuterol nebulizer, inhaler, Zyrtec, Flonase and prednisone Dosepak. He was also given guaifenesin with codeine for cough. Discharged home in stable condition to follow up with his primary care physician who he said he does have a primary care physician and I also gave him [facility] as backup. - Differential Diagnosis acute asthma exacerbation, bronchitis,URI with cough and congestion,PNA Critical care attestation.: If time is entered above; I have spent that time in minutes in the direct care of this critically ill patient, excluding procedure time. ED Disposition Clinical Impression: Acute exacerbation of asthma with allergic rhinitis, Cough in adult patient Disposition: - TO HOME OR SELFCARE Is pt being admited?: No Does the pt Need Aspirin: No Condition: Stable Instructions: Asthma (ED), Allergic Rhinitis (ED), Acute Cough (ED) Additional Instructions: Follow up with your pcp Dr. Sood in 2 days Take medication as prescribed Take albuterol neb q6 hrs a 2 days then as needed. Take flonase and zytec for nasal congestion Take cough medicine at night but please do not drive or operate heavy machinary while taking as this causes drowsiness Return to emergency becki, if symptoms worsens Prescriptions: guaiFENesin/CODEINE [Robitussin AC] 10 ml PO QHS PRN #70 oral.liqd PRN Reason: Cough ALBUTEROL Inhaler (OR & NICU) [ProAir HFA Inhaler] 2 puff IH Q6H PRN #1 inhalation PRN Reason: Shortness Of Breath Albuterol Sulfate [Albuterol 0.63% NEBS] 3 ml IH Q6HR PRN #2 ml PRN Reason: Wheezing Cetirizine HCl [ZyrTEC] 10 mg PO QAM 14 Days #14 capsule Fluticasone [Flonase] 1 spray NS QDAY 14 Days #1 bottle Prednisone [predniSONE 10 mg (6-Day Pack, 21 Tabs)] 10 mg PO .TAPER 6 Days #1 tab.ds.pk Referrals: PRIMARY CARE, [Primary Care Provider] - 07/20/18 [facility] [Outside] - 07/20/18 Forms: Work/School Release Form(ED)
[2018-07-18] MEDS ORDERED: MAGNESIUM SULFATE 2GM/50ML 2 GM/50 ML BAG IV ONE (20:00)
[2018-07-18] MEDS ORDERED: XOPENEX IH ONE (20:23)
--- NOTE | 2018-07-18 21:09 | XRay Report ---
FINAL REPORT EXAM: XR CHEST ROUTINE 2V HISTORY: cough and wheeze TECHNIQUE: PRIORS: None. FINDINGS: IMPRESSION:
[2018-07-18 22:22] VITALS: BP 148/95
== END 2018-07-18 23:50 | disposition home or self-care (01) ==
LOC: ED 18:19
DX: J45.901 Unspecified asthma with (acute) exacerbation (principal); E11.9 Type 2 diabetes mellitus without complications
CPT/HCPCS: 71046; 94640; 96365; 96375; 99284; J2930; J3475

== ENCOUNTER 2018-07-25 19:37 | Emergency (ER) | payer OTHER ==
[2018-07-25 20:23] VITALS: BP 114/88
[2018-07-25] MEDS ORDERED: TYLENOL PO ONE (20:23)
[2018-07-25] MEDS ORDERED: TORADOL IM ONE (23:31)
--- NOTE | 2018-07-25 23:36 | Emergency Department Report ---
ED General Adult HPI - General Chief complaint: Urogenital-Male Stated complaint: LEFT GROIN PAIN Time Seen by Provider: 07/25/18 23:21 Source: patient Mode of arrival: Ambulatory Limitations: No Limitations - History of Present Illness Initial comments: pt is a 43 y/o aam who presents s/p GLF state he fell in street and hyperextending his groin thigh left , states pain and soreness with movement there is no laceration abrasion or bleeding no swelling no redness, pain described as 4/10 with movement pt drove self to ed and is ambulatory to baseline per patient. there is no numbness or tingling. Onset/Timin -: hour(s) Location: lower extremity Severity scale (0 -10): 7 Quality: other ("soreness") Consistency: intermittent Improves with: rest Worsens with: movement Treatments Prior to Arrival: none - Related Data Home Medications Medication Instructions Recorded Confirmed Last Taken Insulin NPH Hum/Reg Insulin Hm 25 unit SQ BID 01/31/18 04/26/18 01/30/18 [Humulin 70-30 Vial] Previous Rx's Medication Instructions Recorded Last Taken Type Albuterol Sulfate [Albuterol 0.63% 0.63 mg IH TID PRN #1 box 01/31/18 Unknown Rx NEBS] Albuterol Sulfate [Proair 90 mcg IH Q4HR PRN #2 aer.pow.ba 01/31/18 Unknown Rx Respiclick] Budesonide [Pulmicort] 0.25 mg IH Q12HR #1 box 01/31/18 Unknown Rx Ipratropium [Atrovent NEB] 0.5 mg IH Q8HRT #1 box 01/31/18 Unknown Rx HYDROcodone/APAP 5-325 [[place] 1 - 2 each PO Q6HR PRN #10 tablet 04/07/18 Unknown Rx 5/325] Ibuprofen [Motrin 800 MG tab] 800 mg PO Q8HR PRN #20 tablet 04/07/18 Unknown Rx Prednisone [predniSONE 10 mg 10 mg PO .TAPER #1 tab.ds.pk 04/07/18 Unknown Rx (6-Day Pack, 21 Tabs)] Albuterol Sulfate [Proair 90 mcg IH Q4HR PRN #2 aer.pow.ba 06/19/18 Unknown Rx Respiclick] Benzonatate [Tessalon Perles] 100 mg PO Q8HR PRN #30 capsule 06/19/18 Unknown Rx predniSONE [Deltasone] 40 mg PO QDAY #8 tab 06/19/18 Unknown Rx ALBUTEROL Inhaler (OR & NICU) 1 puff IH Q4-6H PRN #1 inha 07/09/18 Unknown Rx [ProAir HFA Inhaler] Montelukast [Singulair] 10 mg PO QPM #14 tablet 07/09/18 Unknown Rx predniSONE [Deltasone] 50 mg PO QDAY #7 tab 07/09/18 Unknown Rx ALBUTEROL Inhaler (OR & NICU) 2 puff IH Q6H PRN #1 inhalation 07/18/18 Unknown Rx [ProAir HFA Inhaler] Albuterol Sulfate [Albuterol 0.63% 3 ml IH Q6HR PRN #2 ml 07/18/18 Unknown Rx NEBS] Cetirizine HCl [ZyrTEC] 10 mg PO QAM 14 Days #14 capsule 07/18/18 Unknown Rx Fluticasone [Flonase] 1 spray NS QDAY 14 Days #1 bottle 07/18/18 Unknown Rx Prednisone [predniSONE 10 mg 10 mg PO .TAPER 6 Days #1 tab.ds.pk 07/18/18 Unknown Rx (6-Day Pack, 21 Tabs)] guaiFENesin/CODEINE [Robitussin AC] 10 ml PO QHS PRN #70 oral.liqd 07/18/18 Unknown Rx Cyclobenzaprine [Flexeril] 10 mg PO TID PRN #30 tablet 07/25/18 Unknown Rx Menthol/Camphor [[place] 1 applicatio TP QID PRN #1 tube 07/25/18 Unknown Rx Ointment] Naproxen 500 mg PO BID PRN #30 tablet 07/25/18 Unknown Rx Allergies Allergy/AdvReac Type Severity Reaction Status Date / Time No Known Allergies Allergy Verified 01/24/18 19:06 ED Review of Systems ROS: Stated complaint: LEFT GROIN PAIN Other details as noted in HPI Constitutional: denies: chills, fever Eyes: denies: eye pain, eye discharge, vision change ENT: denies: ear pain, throat pain Respiratory: denies: cough, shortness of breath, wheezing Cardiovascular: denies: chest pain, palpitations Endocrine: no symptoms reported Gastrointestinal: denies: abdominal pain, nausea, diarrhea Genitourinary: denies: urgency, dysuria Musculoskeletal: other (groin pain ) Skin: denies: rash, lesions Neurological: denies: headache, weakness, paresthesias Psychiatric: denies: anxiety, depression Hematological/Lymphatic: denies: easy bleeding, easy bruising ED Past Medical Hx - Past Medical History Previous Medical History?: Yes Hx Diabetes: Yes Hx Asthma: Yes Additional medical history: Hernia - Surgical History Past Surgical History?: Yes Additional Surgical History: Skin graft, Pelvic reconstruction, Hernia repair - Social History Smoking Status: Never Smoker Substance Use Type: None - Medications Home Medications: Home Medications Medication Instructions Recorded Confirmed Last Taken Type Albuterol Sulfate [Albuterol 0.63% 0.63 mg IH TID PRN #1 box 01/31/18 04/26/18 Unknown Rx NEBS] Albuterol Sulfate [Proair 90 mcg IH Q4HR PRN #2 aer.pow.ba 01/31/18 04/26/18 Unknown Rx Respiclick] Budesonide [Pulmicort] 0.25 mg IH Q12HR #1 box 01/31/18 04/26/18 Unknown Rx Insulin NPH Hum/Reg Insulin Hm 25 unit SQ BID 01/31/18 04/26/18 01/30/18 History [Humulin 70-30 Vial] Ipratropium [Atrovent NEB] 0.5 mg IH Q8HRT #1 box 01/31/18 04/26/18 Unknown Rx HYDROcodone/APAP 5-325 [[place] 1 - 2 each PO Q6HR PRN #10 tablet 04/07/18 04/26/18 Unknown Rx 5/325] Ibuprofen [Motrin 800 MG tab] 800 mg PO Q8HR PRN #20 tablet 04/07/18 04/26/18 Unknown Rx Prednisone [predniSONE 10 mg 10 mg PO .TAPER #1 tab.ds.pk 04/07/18 04/26/18 Unknown Rx (6-Day Pack, 21 Tabs)] Albuterol Sulfate [Proair 90 mcg IH Q4HR PRN #2 aer.pow.ba 06/19/18 Unknown Rx Respiclick] Benzonatate [Tessalon Perles] 100 mg PO Q8HR PRN #30 capsule 06/19/18 Unknown Rx predniSONE [Deltasone] 40 mg PO QDAY #8 tab 06/19/18 Unknown Rx ALBUTEROL Inhaler (OR & NICU) 1 puff IH Q4-6H PRN #1 inha 07/09/18 Unknown Rx [ProAir HFA Inhaler] Montelukast [Singulair] 10 mg PO QPM #14 tablet 07/09/18 Unknown Rx predniSONE [Deltasone] 50 mg PO QDAY #7 tab 07/09/18 Unknown Rx ALBUTEROL Inhaler (OR & NICU) 2 puff IH Q6H PRN #1 inhalation 07/18/18 Unknown Rx [ProAir HFA Inhaler] Albuterol Sulfate [Albuterol 0.63% 3 ml IH Q6HR PRN #2 ml 07/18/18 Unknown Rx NEBS] Cetirizine HCl [ZyrTEC] 10 mg PO QAM 14 Days #14 capsule 07/18/18 Unknown Rx Fluticasone [Flonase] 1 spray NS QDAY 14 Days #1 bottle 07/18/18 Unknown Rx Prednisone [predniSONE 10 mg 10 mg PO .TAPER 6 Days #1 tab.ds.pk 07/18/18 Unknown Rx (6-Day Pack, 21 Tabs)] guaiFENesin/CODEINE [Robitussin AC] 10 ml PO QHS PRN #70 oral.liqd 07/18/18 Unknown Rx Cyclobenzaprine [Flexeril] 10 mg PO TID PRN #30 tablet 07/25/18 Unknown Rx Menthol/Camphor [[place] 1 applicatio TP QID PRN #1 tube 07/25/18 Unknown Rx Ointment] Naproxen 500 mg PO BID PRN #30 tablet 07/25/18 Unknown Rx ED Physical Exam - General Limitations: No Limitations General appearance: alert, in no apparent distress - Head Head exam: Present: atraumatic, normocephalic - Eye Eye exam: Present: normal appearance, PERRL, EOMI Pupils: Present: normal accommodation - ENT ENT exam: Present: normal exam, mucous membranes moist - Neck Neck exam: Present: normal inspection, full ROM. Absent: lymphadenopathy, thyromegaly - Respiratory Respiratory exam: Present: normal lung sounds bilaterally. Absent: respiratory distress, wheezes, stridor, chest wall tenderness - Cardiovascular Cardiovascular Exam: Present: regular rate, normal rhythm, normal heart sounds. Absent: systolic murmur, diastolic murmur, rubs, gallop - GI/Abdominal GI/Abdominal exam: Present: soft, normal bowel sounds. Absent: tenderness, bruit, hernia - Rectal Rectal exam: Present: deferred - exam: Present: normal inspection. Absent: testicular tenderness, scrotal swelling - Extremities Exam Extremities exam: Present: normal inspection, full ROM, tenderness (left lateral thigh ), normal capillary refill. Absent: pedal edema, joint swelling, calf tenderness - Expanded Lower Extremity Exam Left Upper Leg exam: Present: full ROM, tenderness (left medial thigh tenderness no swelling no ecchymosis no deformity no laceration or bleeding ). Absent: swelling, abrasion, laceration, ecchymosis, deformity, crepidus, dislocation, erythema Knee exam: Present: normal inspection, full ROM Lower Leg exam: Present: normal inspection, full ROM Ankle exam: Present: normal inspection, full ROM Foot/Toe exam: Present: normal inspection, full ROM Neuro vascular tendon exam: Present: no vascular compromise Gait: Positive: observed and normal - Back Exam Back exam: Present: normal inspection, full ROM. Absent: tenderness, CVA tenderness (R), CVA tenderness (L), muscle spasm, paraspinal tenderness, verte bral tenderness, rash noted - Neurological Exam Neurological exam: Present: alert, oriented X3, CN II-XII intact, normal gait, reflexes normal. Absent: motor sensory deficit - Psychiatric Psychiatric exam: Present: normal affect, normal mood - Skin Skin exam: Present: warm, dry, intact, normal color. Absent: rash ED Course Vital Signs 07/25/18 07/25/18 20:17 20:25 Temperature 97.9 F Pulse Rate 109 H Respiratory 18 18 Rate Blood Pressure 114/88 O2 Sat by Pulse 97 Oximetry ED Medical Decision Making - Medical Decision Making Groint strain , left , plan nsaids, mucle relaxants, analgesic balm, moist heat therapy follow up with pcp in 2-3 days , return to emergency if symptoms worsen, pt verbalized agreement and understanding of discharge instructions. Critical care attestation.: If time is entered above; I have spent that time in minutes in the direct care of this critically ill patient, excluding procedure time. ED Disposition Clinical Impression: Groin strain Qualifiers: Encounter type: initial encounter Laterality: left Qualified Code(s): S76.212A - Strain of adductor muscle, fascia and tendon of left thigh, initial encounter Disposition: TO HOME OR SELFCARE Is pt being admited?: No Does the pt Need Aspirin: No Condition: Stable Instructions: Muscle Strain (ED), Groin Strain (ED) Prescriptions: Cyclobenzaprine [Flexeril] 10 mg PO TID PRN #30 tablet PRN Reason: Muscle Spasm Menthol/Camphor [[place] Ointment] 1 applicatio TP QID PRN #1 tube PRN Reason: pain Naproxen 500 mg PO BID PRN #30 tablet PRN Reason: pain Referrals: PRIMARY CARE, [Primary Care Provider] - 3-5 Days ELA MOSS MD [Staff Physician] - 3-5 Days Forms: Work/School Release Form(ED) Time of Disposition: 23:41
== END 2018-07-25 23:55 | disposition home or self-care (01) ==
LOC: ED 19:37
DX: S76.212A Strain of adductor muscle, fascia and tendon of left thigh, initial encounter (principal); E11.9 Type 2 diabetes mellitus without complications; J45.909 Unspecified asthma, uncomplicated; W18.30XA Fall on same level, unspecified, initial encounter; Y93.89 Activity, other specified; Y92.89 Other specified places as the place of occurrence of the external cause; Y99.8 Other external cause status
CPT/HCPCS: 96372; 99282; J1885

== ENCOUNTER 2018-09-07 14:26 | Emergency (ER) | payer OTHER ==
[2018-09-07] MEDS ORDERED: ATROVENT IH ONE ×2 (14:45→15:58)
[2018-09-07] MEDS ORDERED: PROVENTIL IH ONE ×2 (14:45→15:58)
[2018-09-07] MEDS ORDERED: MAGNESIUM SULFATE 2GM/50ML 2 GM/50 ML BAG IV ONE ×2 (14:51→14:59)
[2018-09-07] MEDS ORDERED: SOLU-Medrol ONE (14:51)
[2018-09-07] MEDS ORDERED: NACL 0.9% 1000 ML 1,000 ML ONE (14:52)
[2018-09-07] MEDS ORDERED: NACL 0.9% 1000 ML 1,000 ML IV ONE (14:58)
[2018-09-07] MEDS ORDERED: SOLU-Medrol IV ONE (14:58)
[2018-09-07 15:57] VITALS: BP 136/86
--- NOTE | 2018-09-07 16:00 | Emergency Department Report ---
ED Asthma HPI - General Chief Complaint: Adult Asthma Stated Complaint: ASTHMA Time Seen by Provider: 09/07/18 15:23 Source: patient, RN notes reviewed, old records reviewed Mode of arrival: Ambulatory Limitations: No Limitations - History of Present Illness Initial Comments: This is a pleasant 43-year-old gentleman whom I have evaluated in the past. He presents to the emergency room today with a complaint of asthma exacerbation. I have evaluated this patient twice in the past for similar symptoms. He reports dull onset, history of prior ER visit, mild to moderate severity. He denies DVT, pulmonary embolus risk factors. He was given albuterol, Atrovent, steroids, magnesium, and these improved his symptoms. He reports his wheezing is now currently improved, he is not having physical pain, and he reports readiness for discharge. He reports that outpatient maintenance medications, such as Symbicort, Pulmicort but typically do not work for his maintenance. He reports pro-air, albuterol do work for his symptoms. MD Complaint: "asthma attack", shortness of breath, wheezing -: Gradual Asthma History: adult onset, history of frequent attac, history of prior ED visit Severity: moderate Context: other (cold weather, change of season) Associated Symptoms: dry cough - Related Data Home Medications Medication Instructions Recorded Confirmed Last Taken Insulin NPH Hum/Reg Insulin Hm 25 unit SQ BID 01/31/18 04/26/18 01/30/18 [Humulin 70-30 Vial] Previous Rx's Medication Instructions Recorded Last Taken Type Albuterol Sulfate [Albuterol 0.63% 0.63 mg IH TID PRN #1 box 01/31/18 Unknown Rx NEBS] Albuterol Sulfate [Proair 90 mcg IH Q4HR PRN #2 aer.pow.ba 01/31/18 Unknown Rx Respiclick] Budesonide [Pulmicort] 0.25 mg IH Q12HR #1 box 01/31/18 Unknown Rx Ipratropium [Atrovent NEB] 0.5 mg IH Q8HRT #1 box 01/31/18 Unknown Rx HYDROcodone/APAP 5-325 [[place] 1 - 2 each PO Q6HR PRN #10 tablet 04/07/18 Unknown Rx 5/325] Ibuprofen [Motrin 800 MG tab] 800 mg PO Q8HR PRN #20 tablet 09/29/18 Unknown Rx Prednisone [predniSONE 10 mg 10 mg PO .TAPER #1 tab.ds.pk 04/07/18 Unknown Rx (6-Day Pack, 21 Tabs)] Albuterol Sulfate [Proair 90 mcg IH Q4HR PRN #2 aer.pow.ba 06/19/18 Unknown Rx Respiclick] Benzonatate [Tessalon Perles] 100 mg PO Q8HR PRN #30 capsule 06/19/18 Unknown Rx predniSONE [Deltasone] 40 mg PO QDAY #8 tab 06/19/18 Unknown Rx ALBUTEROL Inhaler (OR & NICU) 1 puff IH Q4-6H PRN #1 inha 07/09/18 Unknown Rx [ProAir HFA Inhaler] Montelukast [Singulair] 10 mg PO QPM #14 tablet 07/09/18 Unknown Rx predniSONE [Deltasone] 50 mg PO QDAY #7 tab 07/09/18 Unknown Rx ALBUTEROL Inhaler (OR & NICU) 2 puff IH Q6H PRN #1 inhalation 07/18/18 Unknown Rx [ProAir HFA Inhaler] Albuterol Sulfate [Albuterol 0.63% 3 ml IH Q6HR PRN #2 ml 07/18/18 Unknown Rx NEBS] Cetirizine HCl [ZyrTEC] 10 mg PO QAM 14 Days #14 capsule 07/18/18 Unknown Rx Fluticasone [Flonase] 1 spray NS QDAY 14 Days #1 bottle 07/18/18 Unknown Rx Prednisone [predniSONE 10 mg 10 mg PO .TAPER 6 Days #1 tab.ds.pk 07/18/18 Unknown Rx (6-Day Pack, 21 Tabs)] guaiFENesin/CODEINE [Robitussin AC] 10 ml PO QHS PRN #70 oral.liqd 07/18/18 Unknown Rx Cyclobenzaprine [Flexeril] 10 mg PO TID PRN #30 tablet 07/25/18 Unknown Rx Menthol/Camphor [[place] 1 applicatio TP QID PRN #1 tube 07/25/18 Unknown Rx Ointment] Naproxen 500 mg PO BID PRN #30 tablet 07/25/18 Unknown Rx Albuterol Sulfate [Albuterol 0.63% 0.63 mg IH Q4HR PRN #2 ml 09/07/18 Unknown Rx NEBS] Albuterol Sulfate [Proair 90 mcg IH Q4HR PRN #2 aer.pow.ba 09/07/18 Unknown Rx Respiclick] Ipratropium (Nf) [Atrovent] 2 puff IH Q6HR PRN #1 inha 09/07/18 Unknown Rx Ipratropium [Atrovent NEB] 0.5 mg IH Q4HR #2 ml 09/07/18 Unknown Rx predniSONE [Deltasone] 40 mg PO QDAY #8 tab 09/07/18 Unknown Rx Allergies Allergy/AdvReac Type Severity Reaction Status Date / Time No Known Allergies Allergy Verified 01/24/18 19:06 ED Review of Systems ROS: Stated complaint: ASTHMA Other details as noted in HPI Constitutional: denies: fever, malaise Eyes: denies: vision change ENT: congestion Respiratory: cough, shortness of breath Cardiovascular: denies: chest pain Gastrointestinal: denies: abdominal pain Musculoskeletal: denies: back pain Neurological: denies: headache ED Past Medical Hx - Past Medical History Previous Medical History?: Yes Hx Diabetes: Yes Hx Asthma: Yes Additional medical history: Hernia - Surgical History Past Surgical History?: Yes Additional Surgical History: Skin graft, Pelvic reconstruction, Hernia repair - Social History Smoking Status: Never Smoker Substance Use Type: None - Medications Home Medications: Home Medications Medication Instructions Recorded Confirmed Last Taken Type Albuterol Sulfate [Albuterol 0.63% 0.63 mg IH TID PRN #1 box 01/31/18 04/26/18 Unknown Rx NEBS] Albuterol Sulfate [Proair 90 mcg IH Q4HR PRN #2 aer.pow.ba 01/31/18 04/26/18 Unknown Rx Respiclick] Budesonide [Pulmicort] 0.25 mg IH Q12HR #1 box 01/31/18 04/26/18 Unknown Rx Insulin NPH Hum/Reg Insulin Hm 25 unit SQ BID 01/31/18 04/26/18 01/30/18 History [Humulin 70-30 Vial] Ipratropium [Atrovent NEB] 0.5 mg IH Q8HRT #1 box 01/31/18 04/26/18 Unknown Rx HYDROcodone/APAP 5-325 [[place] 1 - 2 each PO Q6HR PRN #10 tablet 04/07/18 04/26/18 Unknown Rx 5/325] Ibuprofen [Motrin 800 MG tab] 800 mg PO Q8HR PRN #20 tablet 04/07/18 04/26/18 Unknown Rx Prednisone [predniSONE 10 mg 10 mg PO .TAPER #1 tab.ds.pk 04/07/18 04/26/18 Unknown Rx (6-Day Pack, 21 Tabs)] Albuterol Sulfate [Proair 90 mcg IH Q4HR PRN #2 aer.pow.ba 06/19/18 Unknown Rx Respiclick] Benzonatate [Tessalon Perles] 100 mg PO Q8HR PRN #30 capsule 06/19/18 Unknown Rx predniSONE [Deltasone] 40 mg PO QDAY #8 tab 06/19/18 Unknown Rx ALBUTEROL Inhaler (OR & NICU) 1 puff IH Q4-6H PRN #1 inha 07/09/18 Unknown Rx [ProAir HFA Inhaler] Montelukast [Singulair] 10 mg PO QPM #14 tablet 07/09/18 Unknown Rx predniSONE [Deltasone] 50 mg PO QDAY #7 tab 07/09/18 Unknown Rx ALBUTEROL Inhaler (OR & NICU) 2 puff IH Q6H PRN #1 inhalation 07/18/18 Unknown Rx [ProAir HFA Inhaler] Albuterol Sulfate [Albuterol 0.63% 3 ml IH Q6HR PRN #2 ml 07/18/18 Unknown Rx NEBS] Cetirizine HCl [ZyrTEC] 10 mg PO QAM 14 Days #14 capsule 07/18/18 Unknown Rx Fluticasone [Flonase] 1 spray NS QDAY 14 Days #1 bottle 07/18/18 Unknown Rx Prednisone [predniSONE 10 mg 10 mg PO .TAPER 6 Days #1 tab.ds.pk 07/18/18 Unknown Rx (6-Day Pack, 21 Tabs)] guaiFENesin/CODEINE [Robitussin AC] 10 ml PO QHS PRN #70 oral.liqd 07/18/18 Unknown Rx Cyclobenzaprine [Flexeril] 10 mg PO TID PRN #30 tablet 07/25/18 Unknown Rx Menthol/Camphor [[place] 1 applicatio TP QID PRN #1 tube 07/25/18 Unknown Rx Ointment] Naproxen 500 mg PO BID PRN #30 tablet 07/25/18 Unknown Rx Albuterol Sulfate [Albuterol 0.63% 0.63 mg IH Q4HR PRN #2 ml 09/07/18 Unknown Rx NEBS] Albuterol Sulfate [Proair 90 mcg IH Q4HR PRN #2 aer.pow.ba 09/07/18 Unknown Rx Respiclick] Ipratropium (Nf) [Atrovent] 2 puff IH Q6HR PRN #1 inha 09/07/18 Unknown Rx Ipratropium [Atrovent NEB] 0.5 mg IH Q4HR #2 ml 09/07/18 Unknown Rx predniSONE [Deltasone] 40 mg PO QDAY #8 tab 09/07/18 Unknown Rx ED Physical Exam - General Limitations: No Limitations General appearance: alert, in no apparent distress - Head Head exam: Present: atraumatic, normocephalic - Eye Eye exam: Present: normal appearance, EOMI. Absent: nystagmus - ENT ENT exam: Present: normal exam, normal orophraynx, mucous membranes moist, normal external ear exam - Neck Neck exam: Present: normal inspection, full ROM. Absent: tenderness, mening ismus - Respiratory Respiratory exam: Present: other (patient was examined after nebulizer therapy was administered). Absent: respiratory distress, wheezes, rales, rhonchi, stridor - Cardiovascular Cardiovascular Exam: Present: normal rhythm, tachycardia, normal heart sounds. Absent: systolic murmur, diastolic murmur, rubs, gallop - GI/Abdominal GI/Abdominal exam: Present: soft. Absent: distended, tenderness, guarding, rebound, rigid - Rectal Rectal exam: Present: deferred - Extremities Exam Extremities exam: Present: full ROM, other (2+ pulses noted in the bilateral upper, lower extremities. Compartments soft. No long bony tenderness. The pelvis is stable.). Absent: pedal edema, calf tenderness - Back Exam Back exam: Present: normal inspection, full ROM. Absent: tenderness, CVA tenderness (R), paraspinal tenderness, vertebral tenderness - Neurological Exam Neurological exam: Present: alert, oriented X3, CN II-XII intact, normal gait, other (Extraocular movements intact. Tongue midline. No facial droop. Facial sensation intact to light touch in the V1, V2, V3 distribution bilaterally. 5 and 5 strength in 4 extremities.. Sensation is intact to light touch in 4 extremities.). Absent: motor sensory deficit - Psychiatric Psychiatric exam: Present: normal affect, normal mood - Skin Skin exam: Present: warm, dry, intact, normal color. Absent: rash ED Course Vital Signs 09/07/18 14:29 Temperature 98.0 F Pulse Rate 121 H Respiratory 26 H Rate Blood Pressure 142/94 O2 Sat by Pulse 93 Oximetry ED Medical Decision Making - Lab Data Vital Signs 09/07/18 09/07/18 14:29 15:57 Temperature 98.0 F Pulse Rate 121 H 105 H Respiratory 26 H 16 Rate Blood Pressure 142/94 Blood Pressure 136/86 [Left] O2 Sat by Pulse 93 95 Oximetry - Medical Decision Making Differential diagnosis, including but not limited to: Asthma exacerbation, mild to moderate Assessment and plan: A 3-year-old gentleman with history of asthma, similar presentations in the past, now with resolved asthma, talking in full sentences, does not have significant work of breathing, has mild tachycardia which would expect after albuterol administration, who is low risk by well's criteria, with no DVT or pulmonary embolus risk factors. He is walking around the department without desaturation. He is medically suitable for discharge at this point in time. Critical care attestation.: If time is entered above; I have spent that time in minutes in the direct care of this critically ill patient, excluding procedure time. ED Disposition Clinical Impression: History of asthma Disposition: [id number] TO HOME OR SELFCARE Is pt being admited?: No Does the pt Need Aspirin: No Condition: Stable Instructions: Asthma (ED) Additional Instructions: Take the medications as needed/directed. Follow up with a primary care doctor or practice specialist within the next month. Return to the emergency room right away with you, worsened or different symptoms. Referrals: SERVANDO ANGLIN MD [Primary Care Provider] - 3-5 Days DEVYN WADE MD [Staff Physician] - 7-10 days LINDSEY QUINTANILLA MD [Staff Physician] - 3-5 Days
== END 2018-09-07 16:25 | disposition home or self-care (01) ==
LOC: ED 14:26
DX: J45.909 Unspecified asthma, uncomplicated (principal); E11.9 Type 2 diabetes mellitus without complications; Z79.4 Long term (current) use of insulin
CPT/HCPCS: 96365; 96375; 99282; J2930; J3475; J7030

== ENCOUNTER 2019-01-02 22:08 | Emergency (ER) | payer OTHER ==
[2019-01-02] MEDS ORDERED: DUONEB *Not for PRN Use IH ONE ×2 (22:11→22:12)
[2019-01-02] MEDS ORDERED: SOLU-Medrol IM ONE (22:12)
[2019-01-02 22:14] VITALS: BP 114/79
--- NOTE | 2019-01-02 22:17 | Emergency Department Report ---
Blank Doc - Documentation Documentation: 43 y o male presents with asthma attack x tonight cxr, duoneb and solumedrol ordered
[2019-01-02] MEDS ORDERED: ATROVENT IH ONE (22:25)
[2019-01-02] MEDS ORDERED: PROVENTIL IH ONE (22:25)
[2019-01-02] MEDS ORDERED: MAGNESIUM SULFATE 2GM/50ML 2 GM/50 ML BAG IV ONE (22:46)
--- NOTE | 2019-01-02 22:46 | Emergency Department Report ---
ED Asthma HPI - General Chief Complaint: Adult Asthma Stated Complaint: ASTHMA Time Seen by Provider: 01/02/19 22:12 Source: patient Mode of arrival: Ambulatory Limitations: No Limitations - History of Present Illness Initial Comments: h/o asthma presents to er with wheezing, mild sob, no fever, chills or night sweats. -: Gradual Context: none known Associated Symptoms: none - Related Data Current Asthma Therapy: inhaled bronchodilator Home Medications Medication Instructions Recorded Confirmed Last Taken Insulin NPH Hum/Reg Insulin Hm 25 unit SQ BID 01/31/18 04/26/18 01/30/18 [Humulin 70-30 Vial] Previous Rx's Medication Instructions Recorded Last Taken Type Albuterol Sulfate [Albuterol 0.63% 0.63 mg IH TID PRN #1 box 01/31/18 Unknown Rx NEBS] Albuterol Sulfate [Proair 90 mcg IH Q4HR PRN #2 aer.pow.ba 01/31/18 Unknown Rx Respiclick] Budesonide [Pulmicort] 0.25 mg IH Q12HR #1 box 01/31/18 Unknown Rx Ipratropium [Atrovent NEB] 0.5 mg IH Q8HRT #1 box 01/31/18 Unknown Rx HYDROcodone/APAP 5-325 [[place] 1 - 2 each PO Q6HR PRN #10 tablet 04/07/18 Unknown Rx 5/325] Ibuprofen [Motrin 800 MG tab] 800 mg PO Q8HR PRN #20 tablet 04/07/18 Unknown Rx Albuterol Sulfate [Proair 90 mcg IH Q4HR PRN #2 aer.pow.ba 06/19/18 Unknown Rx Respiclick] Benzonatate [Tessalon Perles] 100 mg PO Q8HR PRN #30 capsule 06/19/18 Unknown Rx predniSONE [Deltasone] 40 mg PO QDAY #8 tab 06/19/18 Unknown Rx ALBUTEROL Inhaler (OR & NICU) 1 puff IH Q4-6H PRN #1 inha 07/09/18 Unknown Rx [ProAir HFA Inhaler] Montelukast [Singulair] 10 mg PO QPM #14 tablet 07/09/18 Unknown Rx predniSONE [Deltasone] 50 mg PO QDAY #7 tab 07/09/18 Unknown Rx ALBUTEROL Inhaler (OR & NICU) 2 puff IH Q6H PRN #1 inhalation 07/18/18 Unknown Rx [ProAir HFA Inhaler] Albuterol Sulfate [Albuterol 0.63% 3 ml IH Q6HR PRN #2 ml 07/18/18 Unknown Rx NEBS] Cetirizine HCl [ZyrTEC] 10 mg PO QAM 14 Days #14 capsule 07/18/18 Unknown Rx Fluticasone [Flonase] 1 spray NS QDAY 14 Days #1 bottle 07/18/18 Unknown Rx Prednisone [predniSONE 10 mg 10 mg PO .TAPER 6 Days #1 tab.ds.pk 07/18/18 Unknown Rx (6-Day Pack, 21 Tabs)] guaiFENesin/CODEINE [Robitussin AC] 10 ml PO QHS PRN #70 oral.liqd 07/18/18 Unknown Rx Cyclobenzaprine [Flexeril] 10 mg PO TID PRN #30 tablet 07/25/18 Unknown Rx Menthol/Camphor [[place] 1 applicatio TP QID PRN #1 tube 07/25/18 Unknown Rx Ointment] Naproxen 500 mg PO BID PRN #30 tablet 07/25/18 Unknown Rx Albuterol Sulfate [Albuterol 0.63% 0.63 mg IH Q4HR PRN #2 ml 09/07/18 Unknown Rx NEBS] Albuterol Sulfate [Proair 90 mcg IH Q4HR PRN #2 aer.pow.ba 09/07/18 Unknown Rx Respiclick] Ipratropium (Nf) [Atrovent] 2 puff IH Q6HR PRN #1 inha 09/07/18 Unknown Rx Ipratropium [Atrovent NEB] 0.5 mg IH Q4HR #2 ml 09/07/18 Unknown Rx predniSONE [Deltasone] 40 mg PO QDAY #8 tab 09/07/18 Unknown Rx ALBUTEROL Inhaler (OR & NICU) 1 puff IH Q4-6H PRN #1 inha 10/23/18 Unknown Rx [ProAir HFA Inhaler] Fluticasone (Nf) [Flovent Hfa(Nf)] 1 puff IH BID #1 device 10/23/18 Unknown Rx Montelukast [Singulair] 10 mg PO QPM #14 tablet 10/23/18 Unknown Rx predniSONE [Deltasone] 50 mg PO QDAY #5 tab 10/23/18 Unknown Rx Prednisone [predniSONE 10 mg 10 mg PO .TAPER #1 tab.ds.pk 01/03/19 Unknown Rx (6-Day Pack, 21 Tabs)] Allergies Allergy/AdvReac Type Severity Reaction Status Date / Time No Known Allergies Allergy Verified 10/23/18 17:59 ED Review of Systems ROS: Stated complaint: ASTHMA Other details as noted in HPI Comment: All other systems reviewed and negative ENT: denies: ear pain Respiratory: shortness of breath, wheezing Gastrointestinal: nausea Genitourinary: denies: urgency Skin: denies: rash Neurological: denies: headache Psychiatric: denies: anxiety ED Past Medical Hx - Past Medical History Previous Medical History?: Yes Hx Diabetes: Yes Hx Asthma: Yes Additional medical history: Hernia - Surgical History Past Surgical History?: Yes Additional Surgical History: Skin graft, Pelvic reconstruction, Hernia repair - Social History Smoking Status: Never Smoker Substance Use Type: None - Medications Home Medications: Home Medications Medication Instructions Recorded Confirmed Last Taken Type Albuterol Sulfate [Albuterol 0.63% 0.63 mg IH TID PRN #1 box 01/31/18 04/26/18 Unknown Rx NEBS] Albuterol Sulfate [Proair 90 mcg IH Q4HR PRN #2 aer.pow.ba 01/31/18 04/26/18 Unknown Rx Respiclick] Budesonide [Pulmicort] 0.25 mg IH Q12HR #1 box 01/31/18 04/26/18 Unknown Rx Insulin NPH Hum/Reg Insulin Hm 25 unit SQ BID 01/31/18 04/26/18 01/30/18 History [Humulin 70-30 Vial] Ipratropium [Atrovent NEB] 0.5 mg IH Q8HRT #1 box 01/31/18 04/26/18 Unknown Rx HYDROcodone/APAP 5-325 [[place] 1 - 2 each PO Q6HR PRN #10 tablet 04/07/18 04/26/18 Unknown Rx 5/325] Ibuprofen [Motrin 800 MG tab] 800 mg PO Q8HR PRN #20 tablet 04/07/18 04/26/18 Unknown Rx Albuterol Sulfate [Proair 90 mcg IH Q4HR PRN #2 aer.pow.ba 06/19/18 Unknown Rx Respiclick] Benzonatate [Tessalon Perles] 100 mg PO Q8HR PRN #30 capsule 06/19/18 Unknown Rx predniSONE [Deltasone] 40 mg PO QDAY #8 tab 06/19/18 Unknown Rx ALBUTEROL Inhaler (OR & NICU) 1 puff IH Q4-6H PRN #1 inha 07/09/18 Unknown Rx [ProAir HFA Inhaler] Montelukast [Singulair] 10 mg PO QPM #14 tablet 07/09/18 Unknown Rx predniSONE [Deltasone] 50 mg PO QDAY #7 tab 07/09/18 Unknown Rx ALBUTEROL Inhaler (OR & NICU) 2 puff IH Q6H PRN #1 inhalation 07/18/18 Unknown Rx [ProAir HFA Inhaler] Albuterol Sulfate [Albuterol 0.63% 3 ml IH Q6HR PRN #2 ml 07/18/18 Unknown Rx NEBS] Cetirizine HCl [ZyrTEC] 10 mg PO QAM 14 Days #14 capsule 07/18/18 Unknown Rx Fluticasone [Flonase] 1 spray NS QDAY 14 Days #1 bottle 07/18/18 Unknown Rx Prednisone [predniSONE 10 mg 10 mg PO .TAPER 6 Days #1 tab.ds.pk 07/18/18 Unknown Rx (6-Day Pack, 21 Tabs)] guaiFENesin/CODEINE [Robitussin AC] 10 ml PO QHS PRN #70 oral.liqd 07/18/18 Unknown Rx Cyclobenzaprine [Flexeril] 10 mg PO TID PRN #30 tablet 07/25/18 Unknown Rx Menthol/Camphor [[place] 1 applicatio TP QID PRN #1 tube 07/25/18 Unknown Rx Ointment] Naproxen 500 mg PO BID PRN #30 tablet 07/25/18 Unknown Rx Albuterol Sulfate [Albuterol 0.63% 0.63 mg IH Q4HR PRN #2 ml 09/07/18 Unknown Rx NEBS] Albuterol Sulfate [Proair 90 mcg IH Q4HR PRN #2 aer.pow.ba 09/07/18 Unknown Rx Respiclick] Ipratropium (Nf) [Atrovent] 2 puff IH Q6HR PRN #1 inha 09/07/18 Unknown Rx Ipratropium [Atrovent NEB] 0.5 mg IH Q4HR #2 ml 09/07/18 Unknown Rx predniSONE [Deltasone] 40 mg PO QDAY #8 tab 09/07/18 Unknown Rx ALBUTEROL Inhaler (OR & NICU) 1 puff IH Q4-6H PRN #1 inha 10/23/18 Unknown Rx [ProAir HFA Inhaler] Fluticasone (Nf) [Flovent Hfa(Nf)] 1 puff IH BID #1 device 10/23/18 Unknown Rx Montelukast [Singulair] 10 mg PO QPM #14 tablet 10/23/18 Unknown Rx predniSONE [Deltasone] 50 mg PO QDAY #5 tab 10/23/18 Unknown Rx Prednisone [predniSONE 10 mg 10 mg PO .TAPER #1 tab.ds.pk 01/03/19 Unknown Rx (6-Day Pack, 21 Tabs)] ED Physical Exam - General Limitations: No Limitations General appearance: alert, in no apparent distress - Head Head exam: Present: atraumatic, normocephalic - Eye Eye exam: Present: normal appearance - ENT ENT exam: Present: normal exam - Neck Neck exam: Present: normal inspection. Absent: meningismus - Respiratory Respiratory exam: Present: wheezes ED Course Vital Signs 01/02/19 01/02/19 01/02/19 22:13 22:19 23:58 Temperature 98 F Pulse Rate 129 H Pulse Rate [ 120 H 113 H Throughout] Respiratory 28 H Rate Respiratory 26 H 24 Rate [ Throughout] Blood Pressure 114/79 O2 Sat by Pulse 94 Oximetry 01/03/19 00:40 Temperature Pulse Rate 104 H Pulse Rate [ Throughout] Respiratory 17 Rate Respiratory Rate [ Throughout] Blood Pressure O2 Sat by Pulse 96 Oximetry Critical care attestation.: If time is entered above; I have spent that time in minutes in the direct care of this critically ill patient, excluding procedure time. ED Disposition Clinical Impression: Asthma attack Qualifiers: Asthma severity: moderate Asthma persistence: persistent Qualified Code(s): J45.41 - Moderate persistent asthma with (acute) exacerbation Disposition: TO HOME OR SELFCARE Is pt being admited?: No Does the pt Need Aspirin: No Condition: Stable Prescriptions: Prednisone [predniSONE 10 mg (6-Day Pack, 21 Tabs)] 10 mg PO .TAPER #1 tab.ds.pk Referrals: TABITHA ZAMBRANO MD [Primary Care Provider] - 3-5 Days
--- NOTE | 2019-01-02 22:47 | XRay Report ---
PROCEDURE: XR CHEST ROUTINE 2V TECHNIQUE: PA and lateral chest radiographs were obtained. HISTORY: cough/asthma COMPARISONS: None. FINDINGS: Heart: Normal heart size. Mediastinum/Vessels: Normal. Lungs/Pleural space: Pulmonary nodule again visualized right upper lobe measuring about 1.8 cm. This is unchanged from the prior study. No new pulmonary nodules are visualized. No infiltrates are ident ified. No effusions or pneumothorax visualized.. Bony thorax: No acute osseous abnormality. IMPRESSION: Stable solitary pulmonary nodule right upper lobe. Etiology is uncertain. Consider follo w-up CT scan of the chest for further evaluation.. This document is electronically signed by Jabier Prakash MD., January 02 2019 10:44:47 PM ET
== END 2019-01-03 00:40 | disposition home or self-care (01) ==
LOC: ED 22:08
DX: J45.909 Unspecified asthma, uncomplicated (principal); E11.9 Type 2 diabetes mellitus without complications; Z79.1 Long term (current) use of non-steroidal anti-inflammatories (NSAID); Z79.899 Other long term (current) drug therapy; Z79.4 Long term (current) use of insulin; Z98.890 Other specified postprocedural states
CPT/HCPCS: 71046; 94640; 94644; 96365; 96372; 99284; J2930; J3475

== ENCOUNTER 2019-02-18 18:57 | Emergency (ER) | payer SELFPAY ==
--- NOTE | 2019-02-18 19:02 | Emergency Department Report ---
Blank Doc - Documentation Documentation: This is a 44-year-old male that presents with SOB and wheezing. This initial assessment/diagnostic orders/clinical plan/treatment(s) is/are subject to change based on patient's health status, clinical progression and re- assessment by fellow clinical providers in the ED. Further treatment and workup at subsequent clinical providers discretion. Patient/guardians urged not to elope from the ED as their condition may be serious if not clinically assessed and managed. Initial orders include: 1- Patient sent to [facility] for further evaluation and treatment 2- breathing treatment/steroids
[2019-02-18] MEDS ORDERED: PROVENTIL IH ONE (19:03)
[2019-02-18] MEDS ORDERED: ATROVENT IH ONE (19:03)
[2019-02-18] MEDS: DECADRON IM ONE ×2 (19:16→21:05)
[2019-02-18] MEDS ORDERED: MORPHINE IV ONE (20:35)
[2019-02-18] MEDS ORDERED: ZOFRAN IV ONE (20:35)
[2019-02-18] MEDS ORDERED: TORADOL IM ONE (20:36)
--- NOTE | 2019-02-18 22:23 | Emergency Department Report ---
ED Asthma HPI - General Chief Complaint: Dyspnea/Respdistress Stated Complaint: ASTHMA ATTACK Time Seen by Provider: 02/18/19 19:01 Source: patient Mode of arrival: Wheelchair Limitations: No Limitations - History of Present Illness Initial Comments: Mr. Mcdonald is a 44-year-old male with history of severe persistent asthma and aspergillosis who presents with wheezing shortness of breath. He drove directly from work by private auto. +Severe shortness of breath with dry cough. Nonproductive cough. Denies fever. He has severe left chest wall pain. He feels that he may have broken a rib due to severe coughing. He stated that last year he developed rib fracture as a result of coughing. He is followed by a windlasser. He states that his normal oxygen saturation ranges from 90-93% on room air. Mr. 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 MD Complaint: "asthma attack", shortness of breath, wheezing -: Gradual, days(s) (1) Asthma History: adult onset, history of frequent attac, history of prior ED visit, followed by specialist Severity: severe, similar to prior Context: none known Associated Symptoms: dry cough Treatments Prior to Arrival: inhaled bronchodilator - Related Data Home Medications Medication Instructions Recorded Confirmed Last Taken Insulin NPH Hum/Reg Insulin Hm 25 unit SQ BID 01/31/18 04/26/18 01/30/18 [Humulin 70-30 Vial] Previous Rx's Medication Instructions Recorded Last Taken Type Albuterol Sulfate [Albuterol 0.63% 0.63 mg IH TID PRN #1 box 01/31/18 Unknown Rx NEBS] Albuterol Sulfate [Proair 90 mcg IH Q4HR PRN #2 aer.pow.ba 01/31/18 Unknown Rx Respiclick] Budesonide [Pulmicort] 0.25 mg IH Q12HR #1 box 01/31/18 Unknown Rx Ipratropium [Atrovent NEB] 0.5 mg IH Q8HRT #1 box 01/31/18 Unknown Rx HYDROcodone/APAP 5-325 [[place] 1 - 2 each PO Q6HR PRN #10 tablet 04/07/18 Unknown Rx 5/325] Ibuprofen [Motrin 800 MG tab] 800 mg PO Q8HR PRN #20 tablet 04/07/18 Unknown Rx Albuterol Sulfate [Proair 90 mcg IH Q4HR PRN #2 aer.pow.ba 06/19/18 Unknown Rx Respiclick] Benzonatate [Tessalon Perles] 100 mg PO Q8HR PRN #30 capsule 06/19/18 Unknown Rx predniSONE [Deltasone] 40 mg PO QDAY #8 tab 06/19/18 Unknown Rx ALBUTEROL Inhaler (OR & NICU) 1 puff IH Q4-6H PRN #1 inha 07/09/18 Unknown Rx [ProAir HFA Inhaler] Montelukast [Singulair] 10 mg PO QPM #14 tablet 07/09/18 Unknown Rx predniSONE [Deltasone] 50 mg PO QDAY #7 tab 07/09/18 Unknown Rx ALBUTEROL Inhaler (OR & NICU) 2 puff IH Q6H PRN #1 inhalation 07/18/18 Unknown Rx [ProAir HFA Inhaler] Albuterol Sulfate [Albuterol 0.63% 3 ml IH Q6HR PRN #2 ml 07/18/18 Unknown Rx NEBS] Cetirizine HCl [ZyrTEC] 10 mg PO QAM 14 Days #14 capsule 07/18/18 Unknown Rx Fluticasone [Flonase] 1 spray NS QDAY 14 Days #1 bottle 07/18/18 Unknown Rx Prednisone [predniSONE 10 mg 10 mg PO .TAPER 6 Days #1 tab.ds.pk 07/18/18 Unknown Rx (6-Day Pack, 21 Tabs)] guaiFENesin/CODEINE [Robitussin AC] 10 ml PO QHS PRN #70 oral.liqd 07/18/18 Unknown Rx Cyclobenzaprine [Flexeril] 10 mg PO TID PRN #30 tablet 07/25/18 Unknown Rx Menthol/Camphor [[place] 1 applicatio TP QID PRN #1 tube 07/25/18 Unknown Rx Ointment] Naproxen 500 mg PO BID PRN #30 tablet 07/25/18 Unknown Rx Albuterol Sulfate [Albuterol 0.63% 0.63 mg IH Q4HR PRN #2 ml 09/07/18 Unknown Rx NEBS] Albuterol Sulfate [Proair 90 mcg IH Q4HR PRN #2 aer.pow.ba 09/07/18 Unknown Rx Respiclick] Ipratropium (Nf) [Atrovent] 2 puff IH Q6HR PRN #1 inha 09/07/18 Unknown Rx Ipratropium [Atrovent NEB] 0.5 mg IH Q4HR #2 ml 09/07/18 Unknown Rx predniSONE [Deltasone] 40 mg PO QDAY #8 tab 09/07/18 Unknown Rx ALBUTEROL Inhaler (OR & NICU) 1 puff IH Q4-6H PRN #1 inha 10/23/18 Unknown Rx [ProAir HFA Inhaler] Fluticasone (Nf) [Flovent Hfa(Nf)] 1 puff IH BID #1 device 10/23/18 Unknown Rx Montelukast [Singulair] 10 mg PO QPM #14 tablet 10/23/18 Unknown Rx predniSONE [Deltasone] 50 mg PO QDAY #5 tab 10/23/18 Unknown Rx Prednisone [predniSONE 10 mg 10 mg PO .TAPER #1 tab.ds.pk 01/03/19 Unknown Rx (6-Day Pack, 21 Tabs)] ALBUTEROL Inhaler (OR & NICU) 2 puff IH QID PRN #1 device 02/18/19 Unknown Rx [ProAir HFA Inhaler] HYDROcodone/APAP 5-325 [[place] 1 each PO Q6HR PRN #10 tablet 02/18/19 Unknown Rx 5/325] Prednisone [predniSONE 10 mg 10 mg PO .TAPER #1 tab.ds.pk 02/18/19 Unknown Rx (6-Day Pack, 21 Tabs)] Allergies Allergy/AdvReac Type Severity Reaction Status Date / Time No Known Allergies Allergy Verified 10/23/18 17:59 ED Review of Systems ROS: Stated complaint: ASTHMA ATTACK Other details as noted in HPI Comment: All other systems reviewed and negative Constitutional: denies: fever, malaise Respiratory: see HPI, shortness of breath, wheezing Cardiovascular: chest pain ED Past Medical Hx - Past Medical History Previous Medical History?: Yes Hx Diabetes: Yes Hx Asthma: Yes Additional medical history: Hernia - Surgical History Past Surgical History?: Yes Additional Surgical History: Skin graft, Pelvic reconstruction, Hernia repair - Social History Smoking Status: Unknown if ever smoked - Medications Home Medications: Home Medications Medication Instructions Recorded Confirmed Last Taken Type Albuterol Sulfate [Albuterol 0.63% 0.63 mg IH TID PRN #1 box 01/31/18 04/26/18 Unknown Rx NEBS] Albuterol Sulfate [Proair 90 mcg IH Q4HR PRN #2 aer.pow.ba 01/31/18 04/26/18 Unknown Rx Respiclick] Budesonide [Pulmicort] 0.25 mg IH Q12HR #1 box 01/31/18 04/26/18 Unknown Rx Insulin NPH Hum/Reg Insulin Hm 25 unit SQ BID 01/31/18 04/26/18 01/30/18 History [Humulin 70-30 Vial] Ipratropium [Atrovent NEB] 0.5 mg IH Q8HRT #1 box 01/31/18 04/26/18 Unknown Rx HYDROcodone/APAP 5-325 [[place] 1 - 2 each PO Q6HR PRN #10 tablet 04/07/18 04/26/18 Unknown Rx 5/325] Ibuprofen [Motrin 800 MG tab] 800 mg PO Q8HR PRN #20 tablet 04/07/18 04/26/18 Unknown Rx Albuterol Sulfate [Proair 90 mcg IH Q4HR PRN #2 aer.pow.ba 06/19/18 Unknown Rx Respiclick] Benzonatate [Tessalon Perles] 100 mg PO Q8HR PRN #30 capsule 06/19/18 Unknown Rx predniSONE [Deltasone] 40 mg PO QDAY #8 tab 06/19/18 Unknown Rx ALBUTEROL Inhaler (OR & NICU) 1 puff IH Q4-6H PRN #1 inha 07/09/18 Unknown Rx [ProAir HFA Inhaler] Montelukast [Singulair] 10 mg PO QPM #14 tablet 07/09/18 Unknown Rx predniSONE [Deltasone] 50 mg PO QDAY #7 tab 07/09/18 Unknown Rx ALBUTEROL Inhaler (OR & NICU) 2 puff IH Q6H PRN #1 inhalation 07/18/18 Unknown Rx [ProAir HFA Inhaler] Albuterol Sulfate [Albuterol 0.63% 3 ml IH Q6HR PRN #2 ml 07/18/18 Unknown Rx NEBS] Cetirizine HCl [ZyrTEC] 10 mg PO QAM 14 Days #14 capsule 07/18/18 Unknown Rx Fluticasone [Flonase] 1 spray NS QDAY 14 Days #1 bottle 07/18/18 Unknown Rx Prednisone [predniSONE 10 mg 10 mg PO .TAPER 6 Days #1 tab.ds.pk 07/18/18 Unknown Rx (6-Day Pack, 21 Tabs)] guaiFENesin/CODEINE [Robitussin AC] 10 ml PO QHS PRN #70 oral.liqd 07/18/18 Unknown Rx Cyclobenzaprine [Flexeril] 10 mg PO TID PRN #30 tablet 07/25/18 Unknown Rx Menthol/Camphor [[place] 1 applicatio TP QID PRN #1 tube 07/25/18 Unknown Rx Ointment] Naproxen 500 mg PO BID PRN #30 tablet 07/25/18 Unknown Rx Albuterol Sulfate [Albuterol 0.63% 0.63 mg IH Q4HR PRN #2 ml 09/07/18 Unknown Rx NEBS] Albuterol Sulfate [Proair 90 mcg IH Q4HR PRN #2 aer.pow.ba 09/07/18 Unknown Rx Respiclick] Ipratropium (Nf) [Atrovent] 2 puff IH Q6HR PRN #1 inha 09/07/18 Unknown Rx Ipratropium [Atrovent NEB] 0.5 mg IH Q4HR #2 ml 09/07/18 Unknown Rx predniSONE [Deltasone] 40 mg PO QDAY #8 tab 09/07/18 Unknown Rx ALBUTEROL Inhaler (OR & NICU) 1 puff IH Q4-6H PRN #1 inha 10/23/18 Unknown Rx [ProAir HFA Inhaler] Fluticasone (Nf) [Flovent Hfa(Nf)] 1 puff IH BID #1 device 10/23/18 Unknown Rx Montelukast [Singulair] 10 mg PO QPM #14 tablet 10/23/18 Unknown Rx predniSONE [Deltasone] 50 mg PO QDAY #5 tab 10/23/18 Unknown Rx Prednisone [predniSONE 10 mg 10 mg PO .TAPER #1 tab.ds.pk 01/03/19 Unknown Rx (6-Day Pack, 21 Tabs)] ALBUTEROL Inhaler (OR & NICU) 2 puff IH QID PRN #1 device 02/18/19 Unknown Rx [ProAir HFA Inhaler] HYDROcodone/APAP 5-325 [[place] 1 each PO Q6HR PRN #10 tablet 02/18/19 Unknown Rx 5/325] Prednisone [predniSONE 10 mg 10 mg PO .TAPER #1 tab.ds.pk 02/18/19 Unknown Rx (6-Day Pack, 21 Tabs)] ED Physical Exam - General Limitations: No Limitations General appearance: alert, in distress (speaking full sentences + work of breathing evident hollering left chest wall) - Head Head exam: Present: atraumatic, normocephalic - Eye Eye exam: Present: normal appearance - ENT ENT exam: Present: mucous membranes moist - Respiratory Respiratory exam: Present: wheezes, chest wall tenderness, accessory muscle use, decreased breath sounds, prolonged expiratory. Absent: respiratory distress, rales, rhonchi - Cardiovascular Cardiovascular Exam: Present: normal rhythm, tachycardia, normal heart sounds. Absent: systolic murmur, diastolic murmur, rubs, gallop - GI/Abdominal GI/Abdominal exam: Present: soft, normal bowel sounds. Absent: distended, tenderness, guarding, rebound - Rectal Rectal exam: Present: deferred - Extremities Exam Extremities exam: Present: normal inspection - Back Exam Back exam: Present: normal inspection - Neurological Exam Neurological exam: Present: alert, oriented X3 - Psychiatric Psychiatric exam: Present: normal affect, normal mood - Skin Skin exam: Present: warm, dry, intact, normal color. Absent: rash ED Course Vital Signs 02/18/19 02/18/19 19:03 19:19 Temperature 98.8 F Pulse Rate 130 H Pulse Rate [ 101 H Throughout] Respiratory 28 H Rate Respiratory 18 Rate [ Throughout] Blood Pressure 134/98 [Right] O2 Sat by Pulse 90 Oximetry ED Medical Decision Making - Radiology Data Radiology results: report reviewed - Medical Decision Making Mr. Mcdonald presents with acute asthma exacerbation and Left chest wall pain. Mr. Mcdonald presents with acute asthma exacerbation. Symptoms improved with treatment provided in the emergency department including Bronchodilator therapy. I personally reviewed the rib series/PA chest radiographs, I do not see evidence of rib fracture. No evidence of pneumonia or infiltrate. I have prescribed prednisone and albuterol MDI. Also prescribed [place] for chest wall pain. Repeat heart rate 95-100 bpm on my reexamination appropriate for discharge, according to patient his baseline oxygen saturation 90-93% On previous chest radiographs, RUL density nodule seen. Patient is aware. Critical care attestation.: If time is entered above; I have spent that time in minutes in the direct care of this critically ill patient, excluding procedure time. ED Disposition Clinical Impression: Acute asthma exacerbation Disposition: TO HOME OR SELFCARE Is pt being admited?: No Does the pt Need Aspirin: No Condition: Stable Instructions: Asthma (ED) Prescriptions: HYDROcodone/APAP 5-325 [[place] 5/325] 1 each PO Q6HR PRN #10 tablet PRN Reason: Pain Prednisone [predniSONE 10 mg (6-Day Pack, 21 Tabs)] 10 mg PO .TAPER #1 tab.ds.pk ALBUTEROL Inhaler (OR & NICU) [ProAir HFA Inhaler] 2 puff IH QID PRN #1 device PRN Reason: Shortness Of Breath Referrals: SANTHOSH KIM MD [Primary Care Provider] - 3-5 Days Forms: Work/School Release Form(ED)
[2019-02-19 05:47] VITALS: BP 113/68
--- NOTE | 2019-02-19 10:04 | XRay Report ---
LEFT RIBS 3 VIEWS INDICATION / CLINICAL INFORMATION: hx of rib fx, aspergillosis. COMPARISON: None available. FINDINGS: No appreciable fracture or other significant abnormality of the ribs. Accompanying chest radiograph s hows no pneumothorax, pleural fluid or other acute abnormality. Signer Name: Eriberto Damon MD Signed: 02/18/2019 10:00 PM Workstation Name: [id number]
== END 2019-02-19 01:00 | disposition home or self-care (01) ==
LOC: ED 18:57
DX: J45.901 Unspecified asthma with (acute) exacerbation (principal); E11.9 Type 2 diabetes mellitus without complications; Z98.890 Other specified postprocedural states; Z79.899 Other long term (current) drug therapy; Z79.4 Long term (current) use of insulin
CPT/HCPCS: 71101; 94644; 96372; 96374; 96375; 99284; J1100; J1885; J2270; J2405

== ENCOUNTER 2019-03-12 05:33 | Emergency (ER) | payer SELFPAY ==
[2019-03-12] MEDS ORDERED: DELTASONE PO ONE (05:47)
[2019-03-12] MEDS ORDERED: PROVENTIL IH ONE (05:48)
[2019-03-12] MEDS ORDERED: ATROVENT IH ONE (05:48)
[2019-03-12] MEDS ORDERED: MAGNESIUM SULFATE 2GM/50ML 2 GM/50 ML BAG IV ONE (06:19)
--- NOTE | 2019-03-12 06:52 | Emergency Department Report ---
ED Asthma HPI - General Chief Complaint: Dyspnea/Respdistress Stated Complaint: DAVID Time Seen by Provider: 03/12/19 06:13 Source: patient Mode of arrival: Ambulatory Limitations: No Limitations - History of Present Illness Initial Comments: 44-year-old male has a history of asthma and diabetes complains of wheezing shortness breath or couple days. Patient is taking is negative she went. He recently completed a course of prednisone 3 weeks ago at the ER visit on February 18. Patient dry cough without fever, chest pain, leg pain, leg edema, or fever. Denies previous history of intubation. Patient does have a custom furrier at [facility]. Patient does not take any inhaled steroids - Related Data Home Medications Medication Instructions Recorded Confirmed Last Taken Insulin NPH Hum/Reg Insulin Hm 25 unit SQ BID 01/31/18 04/26/18 01/30/18 [Humulin 70-30 Vial] Previous Rx's Medication Instructions Recorded Last Taken Type Albuterol Sulfate [Albuterol 0.63% 0.63 mg IH TID PRN #1 box 01/31/18 Unknown Rx NEBS] Albuterol Sulfate [Proair 90 mcg IH Q4HR PRN #2 aer.pow.ba 01/31/18 Unknown Rx Respiclick] Budesonide [Pulmicort] 0.25 mg IH Q12HR #1 box 01/31/18 Unknown Rx Ipratropium [Atrovent NEB] 0.5 mg IH Q8HRT #1 box 01/31/18 Unknown Rx HYDROcodone/APAP 5-325 [[place] 1 - 2 each PO Q6HR PRN #10 tablet 04/07/18 Unknown Rx 5/325] Ibuprofen [Motrin 800 MG tab] 800 mg PO Q8HR PRN #20 tablet 04/07/18 Unknown Rx Albuterol Sulfate [Proair 90 mcg IH Q4HR PRN #2 aer.pow.ba 06/19/18 Unknown Rx Respiclick] Benzonatate [Tessalon Perles] 100 mg PO Q8HR PRN #30 capsule 06/19/18 Unknown Rx predniSONE [Deltasone] 40 mg PO QDAY #8 tab 06/19/18 Unknown Rx ALBUTEROL Inhaler (OR & NICU) 1 puff IH Q4-6H PRN #1 inha 07/09/18 Unknown Rx [ProAir HFA Inhaler] Montelukast [Singulair] 10 mg PO QPM #14 tablet 07/09/18 Unknown Rx predniSONE [Deltasone] 50 mg PO QDAY #7 tab 07/09/18 Unknown Rx ALBUTEROL Inhaler (OR & NICU) 2 puff IH Q6H PRN #1 inhalation 07/18/18 Unknown Rx [ProAir HFA Inhaler] Albuterol Sulfate [Albuterol 0.63% 3 ml IH Q6HR PRN #2 ml 07/18/18 Unknown Rx NEBS] Cetirizine HCl [ZyrTEC] 10 mg PO QAM 14 Days #14 capsule 07/18/18 Unknown Rx Fluticasone [Flonase] 1 spray NS QDAY 14 Days #1 bottle 07/18/18 Unknown Rx guaiFENesin/CODEINE [Robitussin AC] 10 ml PO QHS PRN #70 oral.liqd 07/18/18 Unknown Rx Cyclobenzaprine [Flexeril] 10 mg PO TID PRN #30 tablet 07/25/18 Unknown Rx Menthol/Camphor [[place] 1 applicatio TP QID PRN #1 tube 07/25/18 Unknown Rx Ointment] Naproxen 500 mg PO BID PRN #30 tablet 07/25/18 Unknown Rx Albuterol Sulfate [Albuterol 0.63% 0.63 mg IH Q4HR PRN #2 ml 09/07/18 Unknown Rx NEBS] Albuterol Sulfate [Proair 90 mcg IH Q4HR PRN #2 aer.pow.ba 09/07/18 Unknown Rx Respiclick] Ipratropium (Nf) [Atrovent] 2 puff IH Q6HR PRN #1 inha 09/07/18 Unknown Rx Ipratropium [Atrovent NEB] 0.5 mg IH Q4HR #2 ml 09/07/18 Unknown Rx predniSONE [Deltasone] 40 mg PO QDAY #8 tab 09/07/18 Unknown Rx ALBUTEROL Inhaler (OR & NICU) 1 puff IH Q4-6H PRN #1 inha 10/23/18 Unknown Rx [ProAir HFA Inhaler] Fluticasone (Nf) [Flovent Hfa(Nf)] 1 puff IH BID #1 device 10/23/18 Unknown Rx Montelukast [Singulair] 10 mg PO QPM #14 tablet 10/23/18 Unknown Rx predniSONE [Deltasone] 50 mg PO QDAY #5 tab 10/23/18 Unknown Rx Prednisone [predniSONE 10 mg 10 mg PO .TAPER #1 tab.ds.pk 01/03/19 Unknown Rx (6-Day Pack, 21 Tabs)] ALBUTEROL Inhaler (OR & NICU) 2 puff IH QID PRN #1 device 02/18/19 Unknown Rx [ProAir HFA Inhaler] HYDROcodone/APAP 5-325 [[place] 1 each PO Q6HR PRN #10 tablet 02/18/19 Unknown Rx 5/325] Prednisone [predniSONE 10 mg 10 mg PO .TAPER #1 tab.ds.pk 02/18/19 Unknown Rx (6-Day Pack, 21 Tabs)] Prednisone [predniSONE 10 mg 10 mg PO .TAPER 6 Days #1 tab.ds.pk 03/12/19 Unknown Rx (6-Day Pack, 21 Tabs)] Allergies Allergy/AdvReac Type Severity Reaction Status Date / Time No Known Allergies Allergy Verified 10/23/18 17:59 ED Review of Systems ROS: Stated complaint: DAVID Other details as noted in HPI Comment: All other systems reviewed and negative ED Past Medical Hx - Past Medical History Hx Diabetes: Yes Hx Asthma: Yes Additional medical history: Hernia - Surgical History Additional Surgical History: Skin graft, Pelvic reconstruction, Hernia repair - Social History Smoking Status: Never Smoker - Medications Home Medications: Home Medications Medication Instructions Recorded Confirmed Last Taken Type Albuterol Sulfate [Albuterol 0.63% 0.63 mg IH TID PRN #1 box 01/31/18 04/26/18 Unknown Rx NEBS] Albuterol Sulfate [Proair 90 mcg IH Q4HR PRN #2 aer.pow.ba 01/31/18 04/26/18 Unknown Rx Respiclick] Budesonide [Pulmicort] 0.25 mg IH Q12HR #1 box 01/31/18 04/26/18 Unknown Rx Insulin NPH Hum/Reg Insulin Hm 25 unit SQ BID 01/31/18 04/26/18 01/30/18 History [Humulin 70-30 Vial] Ipratropium [Atrovent NEB] 0.5 mg IH Q8HRT #1 box 01/31/18 04/26/18 Unknown Rx HYDROcodone/APAP 5-325 [[place]va 1 - 2 each PO Q6HR PRN #10 tablet 04/07/18 04/26/18 Unknown Rx 5/325] Ibuprofen [Motrin 800 MG tab] 800 mg PO Q8HR PRN #20 tablet 04/07/18 04/26/18 Unknown Rx Albuterol Sulfate [Proair 90 mcg IH Q4HR PRN #2 aer.pow.ba 06/19/18 Unknown Rx Respiclick] Benzonatate [Tessalon Perles] 100 mg PO Q8HR PRN #30 capsule 06/19/18 Unknown Rx predniSONE [Deltasone] 40 mg PO QDAY #8 tab 06/19/18 Unknown Rx ALBUTEROL Inhaler (OR & NICU) 1 puff IH Q4-6H PRN #1 inha 07/09/18 Unknown Rx [ProAir HFA Inhaler] Montelukast [Singulair] 10 mg PO QPM #14 tablet 07/09/18 Unknown Rx predniSONE [Deltasone] 50 mg PO QDAY #7 tab 07/09/18 Unknown Rx ALBUTEROL Inhaler (OR & NICU) 2 puff IH Q6H PRN #1 inhalation 07/18/18 Unknown Rx [ProAir HFA Inhaler] Albuterol Sulfate [Albuterol 0.63% 3 ml IH Q6HR PRN #2 ml 07/18/18 Unknown Rx NEBS] Cetirizine HCl [ZyrTEC] 10 mg PO QAM 14 Days #14 capsule 07/18/18 Unknown Rx Fluticasone [Flonase] 1 spray NS QDAY 14 Days #1 bottle 07/18/18 Unknown Rx guaiFENesin/CODEINE [Robitussin AC] 10 ml PO QHS PRN #70 oral.liqd 07/18/18 Unknown Rx Cyclobenzaprine [Flexeril] 10 mg PO TID PRN #30 tablet 07/25/18 Unknown Rx Menthol/Camphor [[place] 1 applicatio TP QID PRN #1 tube 07/25/18 Unknown Rx Ointment] Naproxen 500 mg PO BID PRN #30 tablet 07/25/18 Unknown Rx Albuterol Sulfate [Albuterol 0.63% 0.63 mg IH Q4HR PRN #2 ml 09/07/18 Unknown Rx NEBS] Albuterol Sulfate [Proair 90 mcg IH Q4HR PRN #2 aer.pow.ba 09/07/18 Unknown Rx Respiclick] Ipratropium (Nf) [Atrovent] 2 puff IH Q6HR PRN #1 inha 09/07/18 Unknown Rx Ipratropium [Atrovent NEB] 0.5 mg IH Q4HR #2 ml 09/07/18 Unknown Rx predniSONE [Deltasone] 40 mg PO QDAY #8 tab 09/07/18 Unknown Rx ALBUTEROL Inhaler (OR & NICU) 1 puff IH Q4-6H PRN #1 inha 10/23/18 Unknown Rx [ProAir HFA Inhaler] Fluticasone (Nf) [Flovent Hfa(Nf)] 1 puff IH BID #1 device 10/23/18 Unknown Rx Montelukast [Singulair] 10 mg PO QPM #14 tablet 10/23/18 Unknown Rx predniSONE [Deltasone] 50 mg PO QDAY #5 tab 10/23/18 Unknown Rx Prednisone [predniSONE 10 mg 10 mg PO .TAPER #1 tab.ds.pk 01/03/19 Unknown Rx (6-Day Pack, 21 Tabs)] ALBUTEROL Inhaler (OR & NICU) 2 puff IH QID PRN #1 device 02/18/19 Unknown Rx [ProAir HFA Inhaler] HYDROcodone/APAP 5-325 [Ava 1 each PO Q6HR PRN #10 tablet 02/18/19 Unknown Rx 5/325] Prednisone [predniSONE 10 mg 10 mg PO .TAPER #1 tab.ds.pk 02/18/19 Unknown Rx (6-Day Pack, 21 Tabs)] Prednisone [predniSONE 10 mg 10 mg PO .TAPER 6 Days #1 tab.ds.pk 03/12/19 Unknown Rx (6-Day Pack, 21 Tabs)] ED Physical Exam - General Limitations: No Limitations - Other Other exam information: Normal: No acute distress Head: Atraumatic Eyes: Normal appearance, pupils equally reactive to light, extraocular movements intact ENT: Moist mucous membranes Neck: Normal appearance, no midline cervical tenderness, no meningismus Chest: Bilateral wheezing without rales, crackles. Mild tachypnea Cardiovascular: Tachycardic regular rhythm Abdomen: Soft, nontender, nondistended, no rebound or guarding, normal bowel sounds Back: Normal. Extremity: Normal appearance, full range of motion, no calf tenderness or leg edema Neuro: Alert and oriented 3, speech normal, no gross motor sensory deficit Psych: Appropriate Skin: No rash ED Course Vital Signs 03/12/19 03/12/19 03/12/19 05:38 05:57 06:00 Temperature 98.2 F 98.2 F Pulse Rate 123 H 120 H 117 H Pulse Rate [ Bilateral] Respiratory 22 13 13 Rate Respiratory Rate [Bilateral ] Blood Pressure 125/87 129/87 Blood Pressure 138/85 [Left] O2 Sat by Pulse 95 94 92 Oximetry 03/12/19 03/12/19 03/12/19 06:04 06:30 08:08 Temperature Pulse Rate 121 H 120 H Pulse Rate [ 122 H Bilateral] Respiratory 29 H 16 Rate Respiratory 20 Rate [Bilateral ] Blood Pressure 129/103 Blood Pressure 113/80 [Left] O2 Sat by Pulse 93 97 Oximetry - Reevaluation(s) Reevaluation #1: 03/12/19 08:05 Patient feeling better at the ED treatment. mild persistent wheeze (baseline as per pt). sat 95% while ambulating. 03/12/19 08:10 Patient remains tachycardic throughout ED stay and likely secondary to bronchodilators. I requested that patient stay in the ER a while longer to monitor for improvement in his heart rate. He states it is always high he rather leave at this time. ED Medical Decision Making - Medical Decision Making Patient's symptoms improved in the ED with treatment with magnesium, nebs, and prednisone by mouth. We'll be discharging a prednisone taper. Patient has bronchodilators at home. 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 Follow-up with his primary custom furrier is encouraged. - Differential Diagnosis asthma, pneumonia, bronchitis Critical Care Time: No Critical care attestation.: If time is entered above; I have spent that time in minutes in the direct care of this critically ill patient, excluding procedure time. ED Disposition Clinical Impression: Acute asthma exacerbation, Tachycardia Disposition: -01 TO HOME OR SELFCARE Is pt being admited?: No Does the pt Need Aspirin: No Condition: Stable Instructions: Asthma (ED) Additional Instructions: Taken medications as prescribed. Follow-up with your doctor or the clinic/doctor provided. Return if symptoms worsen. Prescriptions: Prednisone [predniSONE 10 mg (6-Day Pack, 21 Tabs)] 10 mg PO .TAPER 6 Days #1 tab.ds.pk Referrals: COLBY MANUEL MD [Primary Care Provider] - 3-5 Days Time of Disposition: 08:11
[2019-03-12 08:08] VITALS: BP 113/80
== END 2019-03-12 08:44 | disposition home or self-care (01) ==
LOC: ED 05:33
DX: J45.901 Unspecified asthma with (acute) exacerbation (principal); R00.0 Tachycardia, unspecified; E11.9 Type 2 diabetes mellitus without complications; Z98.890 Other specified postprocedural states; Z79.899 Other long term (current) drug therapy
CPT/HCPCS: 94644; 96365; 99283; J3475; J7512

== ENCOUNTER 2019-04-13 06:18 | Emergency (ER) | payer SELFPAY ==
[2019-04-13] MEDS ORDERED: IPRATROPIUM/ALBUTEROL SULFATE 3 ML AMPUL.NEB IH ONE (06:23)
[2019-04-13] MEDS ORDERED: methylPREDNISolone Sod Succinate 125 MG/2 ML INJ IV ONE (06:28)
[2019-04-13] MEDS ORDERED: ALBUTEROL 2.5 MG/3 ML NEBU IH ONE ×2 (06:28→06:31)
[2019-04-13] MEDS ORDERED: IPRATROPIUM 0.02% NEBU 2.5 ML IH ONE (06:28)
[2019-04-13] MEDS ORDERED: MAGNESIUM SULFATE 2 GM/50 ML BAG IV ONE (06:28)
--- NOTE | 2019-04-13 06:38 | Emergency Department Report ---
HPI - General Chief Complaint: Dyspnea/Respdistress Time Seen by Provider: 04/13/19 06:26 - HPI HPI: Room 2 The patient is a 44-year-old male presenting with a chief complaint of shortness of breath. Patient states that yesterday she says shortness breath consistent with his asthma. Patient states he has had a cough productive of clear sputum. Patient denies fever or rhinorrhea. ED Past Medical Hx - Past Medical History Previous Medical History?: Yes Hx Diabetes: Yes Hx Asthma: Yes Additional medical history: Hernia - Surgical History Past Surgical History?: Yes Additional Surgical History: Skin graft, Pelvic reconstruction, Hernia repair - Family History Family history: no significant - Social History Smoking Status: Never Smoker Substance Use Type: None - Medications Home Medications: Home Medications Medication Instructions Recorded Confirmed Last Taken Type Albuterol Sulfate [Albuterol 0.63% 0.63 mg IH TID PRN #1 box 01/31/18 04/26/18 Unknown Rx NEBS] Albuterol Sulfate [Proair 90 mcg IH Q4HR PRN #2 aer.pow.ba 01/31/18 04/26/18 Unknown Rx Respiclick] Budesonide [Pulmicort] 0.25 mg IH Q12HR #1 box 01/31/18 04/26/18 Unknown Rx Insulin NPH Hum/Reg Insulin Hm 25 unit SQ BID 01/31/18 04/26/18 01/30/18 History [Humulin 70-30 Vial] Ipratropium [Atrovent NEB] 0.5 mg IH Q8HRT #1 box 01/31/18 04/26/18 Unknown Rx HYDROcodone/APAP 5-325 [[place] 1 - 2 each PO Q6HR PRN #10 tablet 04/07/18 04/26/18 Unknown Rx 5/325] Ibuprofen [Motrin 800 MG tab] 800 mg PO Q8HR PRN #20 tablet 04/07/18 04/26/18 Unknown Rx Albuterol Sulfate [Proair 90 mcg IH Q4HR PRN #2 aer.pow.ba 06/19/18 Unknown Rx Respiclick] Benzonatate [Tessalon Perles] 100 mg PO Q8HR PRN #30 capsule 06/19/18 Unknown Rx predniSONE [Deltasone] 40 mg PO QDAY #8 tab 06/19/18 Unknown Rx ALBUTEROL Inhaler (OR & NICU) 1 puff IH Q4-6H PRN #1 inha 07/09/18 Unknown Rx [ProAir HFA Inhaler] Montelukast [Singulair] 10 mg PO QPM #14 tablet 07/09/18 Unknown Rx predniSONE [Deltasone] 50 mg PO QDAY #7 tab 07/09/18 Unknown Rx ALBUTEROL Inhaler (OR & NICU) 2 puff IH Q6H PRN #1 inhalation 07/18/18 Unknown Rx [ProAir HFA Inhaler] Albuterol Sulfate [Albuterol 0.63% 3 ml IH Q6HR PRN #2 ml 07/18/18 Unknown Rx NEBS] Cetirizine HCl [ZyrTEC] 10 mg PO QAM 14 Days #14 capsule 07/18/18 Unknown Rx Fluticasone [Flonase] 1 spray NS QDAY 14 Days #1 bottle 07/18/18 Unknown Rx guaiFENesin/CODEINE [Robitussin AC] 10 ml PO QHS PRN #70 oral.liqd 07/18/18 Unknown Rx Cyclobenzaprine [Flexeril] 10 mg PO TID PRN #30 tablet 07/25/18 Unknown Rx Menthol/Camphor [[place] 1 applicatio TP QID PRN #1 tube 07/25/18 Unknown Rx Ointment] Naproxen 500 mg PO BID PRN #30 tablet 07/25/18 Unknown Rx Albuterol Sulfate [Albuterol 0.63% 0.63 mg IH Q4HR PRN #2 ml 09/07/18 Unknown Rx NEBS] Albuterol Sulfate [Proair 90 mcg IH Q4HR PRN #2 aer.pow.ba 09/07/18 Unknown Rx Respiclick] Ipratropium (Nf) [Atrovent] 2 puff IH Q6HR PRN #1 inha 09/07/18 Unknown Rx Ipratropium [Atrovent NEB] 0.5 mg IH Q4HR #2 ml 09/07/18 Unknown Rx predniSONE [Deltasone] 40 mg PO QDAY #8 tab 09/07/18 Unknown Rx ALBUTEROL Inhaler (OR & NICU) 1 puff IH Q4-6H PRN #1 inha 10/23/18 Unknown Rx [ProAir HFA Inhaler] Fluticasone (Nf) [Flovent Hfa(Nf)] 1 puff IH BID #1 device 10/23/18 Unknown Rx Montelukast [Singulair] 10 mg PO QPM #14 tablet 10/23/18 Unknown Rx predniSONE [Deltasone] 50 mg PO QDAY #5 tab 10/23/18 Unknown Rx Prednisone [predniSONE 10 mg 10 mg PO .TAPER #1 tab.ds.pk 01/03/19 Unknown Rx (6-Day Pack, 21 Tabs)] ALBUTEROL Inhaler (OR & NICU) 2 puff IH QID PRN #1 device 02/18/19 Unknown Rx [ProAir HFA Inhaler] HYDROcodone/APAP 5-325 [[place] 1 each PO Q6HR PRN #10 tablet 02/18/19 Unknown Rx 5/325] Prednisone [predniSONE 10 mg 10 mg PO .TAPER #1 tab.ds.pk 02/18/19 Unknown Rx (6-Day Pack, 21 Tabs)] Prednisone [predniSONE 10 mg 10 mg PO .TAPER 6 Days #1 tab.ds.pk 03/12/19 Unknown Rx (6-Day Pack, 21 Tabs)] ALBUTEROL Inhaler (OR & NICU) 2 puff IH QID PRN #1 inhalation 04/13/19 Unknown Rx [Proair] Albuterol Sulfate [Albuterol 0.63% 0.63 mg IH TID PRN #90 ml 04/13/19 Unknown Rx NEBS] Prednisone [predniSONE 10 mg 10 mg PO .TAPER #1 tab.ds.pk 04/13/19 Unknown Rx (6-Day Pack, 21 Tabs)] ED Review of Systems ROS: Stated complaint: DAVID Other details as noted in HPI Constitutional: denies: fever Eyes: denies: eye pain ENT: denies: throat pain Respiratory: cough, shortness of breath, wheezing Cardiovascular: denies: chest pain Endocrine: no symptoms reported Gastrointestinal: denies: abdominal pain Genitourinary: denies: dysuria Musculoskeletal: denies: back pain Neurological: denies: headache Physical Exam - Physical Exam Vital Signs: Vital Signs 04/13/19 06:29 Temperature 98.7 F Pulse Rate 114 H Respiratory 24 Rate Blood Pressure 131/86 [Left] O2 Sat by Pulse 92 Oximetry Physical Exam: GENERAL: The patient is well-developed well-nourished male sitting on stretcher exhibiting increased work of breathing. [] HEENT: Normocephalic. Atraumatic. Extraocular motions are intact. Patient has moist mucous membranes. NECK: Supple. Trachea midline CHEST/LUNGS: Diffuse wheezing, increased work of breathing HEART/CARDIOVASCULAR: Regular. There is no tachycardia. There is no gallop rub or murmur. ABDOMEN: Abdomen is soft, nontender. Patient has normal bowel sounds. There is no abdominal distention. SKIN: There is no rash. There is no diaphoresis. NEURO: The patient is awake, alert, and oriented. The patient is cooperative. The patient has normal speech MUSCULOSKELETAL: There is no evidence of acute injury. ED Course Vital Signs 04/13/19 06:29 Temperature 98.7 F Pulse Rate 114 H Respiratory 24 Rate Blood Pressure 131/86 [Left] O2 Sat by Pulse 92 Oximetry - Reevaluation(s) Reevaluation #1: 04/13/19 07:32 Patient's lungs improved, clear to auscultation bilaterally. Nebulizer almost complete Reevaluation #2: 04/13/19 08:21 Patient asymptomatic. Lungs clear to auscultation bilaterally ED Medical Decision Making - Differential Diagnosis asthma exacerbation, bronchitis Critical care attestation.: If time is entered above; I have spent that time in minutes in the direct care of this critically ill patient, excluding procedure time. ED Disposition Clinical Impression: Acute asthma exacerbation, Shortness of breath Disposition: DC-01 TO HOME OR SELFCARE Is pt being admited?: No Does the pt Need Aspirin: No Condition: Stable Instructions: Asthma (ED) Prescriptions: Albuterol Sulfate [Albuterol 0.63% NEBS] 0.63 mg IH TID PRN #90 ml PRN Reason: Wheezing Prednisone [predniSONE 10 mg (6-Day Pack, 21 Tabs)] 10 mg PO .TAPER #1 tab.ds.pk ALBUTEROL Inhaler (OR & NICU) [Proair] 2 puff IH QID PRN #1 inhalation PRN Reason: Shortness Of Breath Referrals: PRIMARY CARE, [Referring] - 3-5 Days Time of Disposition: 08:23
[2019-04-13 09:25] VITALS: BP 119/84
== END 2019-04-13 08:30 | disposition home or self-care (01) ==
LOC: ED 06:18
DX: J45.901 Unspecified asthma with (acute) exacerbation (principal); E11.9 Type 2 diabetes mellitus without complications; Z98.890 Other specified postprocedural states; Z79.899 Other long term (current) drug therapy
CPT/HCPCS: 96365; 96375; 99283; J2930; J3475

== ENCOUNTER 2019-07-06 16:43 | Emergency (ER) | payer SELFPAY ==
[2019-07-06] MEDS ORDERED: ALBUTEROL 2.5 MG/3 ML NEBU IH ONE ×2 (16:46→17:58)
[2019-07-06] MEDS ORDERED: methylPREDNISolone Sod Succinate 125 MG/2 ML INJ IM ONE (16:46)
[2019-07-06] MEDS ORDERED: IPRATROPIUM 0.02% NEBU 2.5 ML IH ONE ×2 (16:46→17:58)
[2019-07-06] MEDS ORDERED: MAGNESIUM SULFATE 2 GM/50 ML BAG IV ONE (17:04)
--- NOTE | 2019-07-06 17:10 | Emergency Department Report ---
HPI - General Chief Complaint: Adult Asthma Time Seen by Provider: 07/06/19 17:00 - HPI HPI: Room 9 The patient is a 44-year-old male presenting with a chief complaint shortness of breath. The patient states his symptoms began 2-3 days ago with shortness of breath consistent with his asthma. Patient denies history of fever. Patient admits to a cough that is nonproductive. Location: [See above] Duration: [See above] Quality: [See above] Severity: [See above] Timing: [See above] Context: [See above] Modifying factors: [See above] Associated signs and symptoms: [see above] ED Past Medical Hx - Past Medical History Previous Medical History?: Yes Hx Diabetes: Yes Hx Asthma: Yes Additional medical history: Hernia - Surgical History Past Surgical History?: Yes Additional Surgical History: Skin graft, Pelvic reconstruction, Hernia repair - Family History Family history: no significant - Social History Smoking Status: Never Smoker Substance Use Type: None - Medications Home Medications: Home Medications Medication Instructions Recorded Confirmed Last Taken Type Albuterol Sulfate [Albuterol 0.63% 0.63 mg IH TID PRN #1 box 01/31/18 04/26/18 Unknown Rx NEBS] Albuterol Sulfate [Proair 90 mcg IH Q4HR PRN #2 aer.pow.ba 01/31/18 04/26/18 Unknown Rx Respiclick] Budesonide [Pulmicort] 0.25 mg IH Q12HR #1 box 01/31/18 04/26/18 Unknown Rx Insulin NPH Hum/Reg Insulin Hm 25 unit SQ BID 01/31/18 04/26/18 01/30/18 History [Humulin 70-30 Vial] Ipratropium [Atrovent NEB] 0.5 mg IH Q8HRT #1 box 01/31/18 04/26/18 Unknown Rx HYDROcodone/APAP 5-325 [[place] 1 - 2 each PO Q6HR PRN #10 tablet 04/07/18 04/26/18 Unknown Rx 5/325] Ibuprofen [Motrin 800 MG tab] 800 mg PO Q8HR PRN #20 tablet 04/07/18 04/26/18 Unknown Rx Albuterol Sulfate [Proair 90 mcg IH Q4HR PRN #2 aer.pow.ba 06/19/18 Unknown Rx Respiclick] Benzonatate [Tessalon Perles] 100 mg PO Q8HR PRN #30 capsule 06/19/18 Unknown Rx predniSONE [Deltasone] 40 mg PO QDAY #8 tab 06/19/18 Unknown Rx ALBUTEROL Inhaler (OR & NICU) 1 puff IH Q4-6H PRN #1 inha 07/09/18 Unknown Rx [ProAir HFA Inhaler] Montelukast [Singulair] 10 mg PO QPM #14 tablet 07/09/18 Unknown Rx predniSONE [Deltasone] 50 mg PO QDAY #7 tab 07/09/18 Unknown Rx ALBUTEROL Inhaler (OR & NICU) 2 puff IH Q6H PRN #1 inhalation 07/18/18 Unknown Rx [ProAir HFA Inhaler] Albuterol Sulfate [Albuterol 0.63% 3 ml IH Q6HR PRN #2 ml 07/18/18 Unknown Rx NEBS] Cetirizine HCl [ZyrTEC] 10 mg PO QAM 14 Days #14 capsule 07/18/18 Unknown Rx Fluticasone [Flonase] 1 spray NS QDAY 14 Days #1 bottle 07/18/18 Unknown Rx guaiFENesin/CODEINE [Robitussin AC] 10 ml PO QHS PRN #70 oral.liqd 07/18/18 Unknown Rx Cyclobenzaprine [Flexeril] 10 mg PO TID PRN #30 tablet 07/25/18 Unknown Rx Menthol/Camphor [[place] 1 applicatio TP QID PRN #1 tube 07/25/18 Unknown Rx Ointment] Naproxen 500 mg PO BID PRN #30 tablet 07/25/18 Unknown Rx Albuterol Sulfate [Albuterol 0.63% 0.63 mg IH Q4HR PRN #2 ml 09/07/18 Unknown Rx NEBS] Albuterol Sulfate [Proair 90 mcg IH Q4HR PRN #2 aer.pow.ba 09/07/18 Unknown Rx Respiclick] Ipratropium (Nf) [Atrovent] 2 puff IH Q6HR PRN #1 inha 09/07/18 Unknown Rx Ipratropium [Atrovent NEB] 0.5 mg IH Q4HR #2 ml 09/07/18 Unknown Rx predniSONE [Deltasone] 40 mg PO QDAY #8 tab 09/07/18 Unknown Rx ALBUTEROL Inhaler (OR & NICU) 1 puff IH Q4-6H PRN #1 inha 10/23/18 Unknown Rx [ProAir HFA Inhaler] Fluticasone (Nf) [Flovent Hfa(Nf)] 1 puff IH BID #1 device 10/23/18 Unknown Rx Montelukast [Singulair] 10 mg PO QPM #14 tablet 10/23/18 Unknown Rx predniSONE [Deltasone] 50 mg PO QDAY #5 tab 10/23/18 Unknown Rx Prednisone [predniSONE 10 mg 10 mg PO .TAPER #1 tab.ds.pk 01/03/19 Unknown Rx (6-Day Pack, 21 Tabs)] ALBUTEROL Inhaler (OR & NICU) 2 puff IH QID PRN #1 device 02/18/19 Unknown Rx [ProAir HFA Inhaler] HYDROcodone/APAP 5-325 [[place] 1 each PO Q6HR PRN #10 tablet 02/18/19 Unknown Rx 5/325] Prednisone [predniSONE 10 mg 10 mg PO .TAPER #1 tab.ds.pk 02/18/19 Unknown Rx (6-Day Pack, 21 Tabs)] Prednisone [predniSONE 10 mg 10 mg PO .TAPER 6 Days #1 tab.ds.pk 03/12/19 Unknown Rx (6-Day Pack, 21 Tabs)] ALBUTEROL Inhaler (OR & NICU) 2 puff IH QID PRN #1 inhalation 04/13/19 Unknown Rx [Proair] Albuterol Sulfate [Albuterol 0.63% 0.63 mg IH TID PRN #90 ml 04/13/19 Unknown Rx NEBS] Prednisone [predniSONE 10 mg 10 mg PO .TAPER #1 tab.ds.pk 04/13/19 Unknown Rx (6-Day Pack, 21 Tabs)] ALBUTEROL Inhaler (OR & NICU) 2 puff IH QID PRN #8.5 gram 07/06/19 Unknown Rx [ProAir HFA Inhaler] Prednisone [predniSONE 10 mg 10 mg PO .TAPER #1 tab.ds.pk 07/06/19 Unknown Rx (6-Day Pack, 21 Tabs)] ED Review of Systems ROS: Stated complaint: ASTHMA ATTACK/DAVID Other details as noted in HPI Constitutional: denies: fever Eyes: denies: eye pain ENT: denies: throat pain Respiratory: cough, shortness of breath, wheezing Cardiovascular: denies: chest pain Endocrine: no symptoms reported Gastrointestinal: denies: abdominal pain Genitourinary: denies: dysuria Musculoskeletal: denies: back pain Neurological: denies: headache Physical Exam - Physical Exam Vital Signs: Vital Signs 07/06/19 07/06/19 16:45 17:01 Pulse Rate 124 H 114 H Pulse Rate [ 114 H Anterior Bilateral Throughout] Respiratory 26 H 20 Rate Respiratory 24 Rate [Anterior Bilateral Throughout] Blood Pressure 126/99 Blood Pressure 121/86 [Left] O2 Sat by Pulse 95 98 Oximetry Physical Exam: GENERAL: The patient is well-developed well-nourished male sitting on stretcher receiving nebulizer exhibiting mildly increased work of breathing HEENT: Normocephalic. Atraumatic. Extraocular motions are intact. Patient has moist mucous membranes. NECK: Supple. Trachea midline CHEST/LUNGS: Faint wheezing diffusely. Diminished. There is no respiratory distress noted. HEART/CARDIOVASCULAR: Regular. There is tachycardia. There is no gallop rub or murmur. SKIN: There is no rash. There is no edema. There is no diaphoresis. NEURO: The patient is awake, alert, and oriented. The patient is cooperative. The patient has normal speech MUSCULOSKELETAL: There is no evidence of acute injury. ED Course Vital Signs 07/06/19 07/06/19 16:45 17:01 Pulse Rate 124 H 114 H Pulse Rate [ 114 H Anterior Bilateral Throughout] Respiratory 26 H 20 Rate Respiratory 24 Rate [Anterior Bilateral Throughout] Blood Pressure 126/99 Blood Pressure 121/86 [Left] O2 Sat by Pulse 95 98 Oximetry - Reevaluation(s) Reevaluation #1: 07/06/19 18:46 Patient states he feels improved and is comfortable going home. Strong warnings given ED Medical Decision Making - Differential Diagnosis acute asthma exacerbation Critical care attestation.: If time is entered above; I have spent that time in minutes in the direct care of this critically ill patient, excluding procedure time. ED Disposition Clinical Impression: Acute asthma exacerbation, Shortness of breath Disposition: - TO HOME OR SELFCARE Is pt being admited?: No Does the pt Need Aspirin: No Condition: Stable Instructions: Asthma (ED) Additional Instructions: Return to the emergency department should you develop worsening symptoms, inability to tolerate food or liquids, high fever or any other concerns Prescriptions: Prednisone [predniSONE 10 mg (6-Day Pack, 21 Tabs)] 10 mg PO .TAPER #1 tab.ds.pk ALBUTEROL Inhaler (OR & NICU) [ProAir HFA Inhaler] 2 puff IH QID PRN #8.5 gram PRN Reason: Shortness Of Breath Referrals: PRIMARY CARE, [Referring] - 3-5 Days Time of Disposition: 18:48
[2019-07-06 19:20] VITALS: BP 118/78
== END 2019-07-06 19:20 | disposition home or self-care (01) ==
LOC: ED 16:43
DX: J45.901 Unspecified asthma with (acute) exacerbation (principal); E11.9 Type 2 diabetes mellitus without complications; Z79.899 Other long term (current) drug therapy
CPT/HCPCS: 94640; 96365; 96372; 99283; J2930; J3475; 94644

== ENCOUNTER 2019-09-18 15:02 | Emergency (ER) | payer SELFPAY ==
[2019-09-18] MEDS ORDERED: IPRATROPIUM/ALBUTEROL SULFATE 3 ML AMPUL.NEB IH ONE (15:05)
[2019-09-18] MEDS ORDERED: IPRATROPIUM 0.02% NEBU 2.5 ML IH ONE ×2 (15:14→19:25)
[2019-09-18] MEDS ORDERED: ALBUTEROL 2.5 MG/3 ML NEBU IH ONE ×2 (15:14→19:24)
[2019-09-18] MEDS ORDERED: dexAMETHasone 20 MG/5 ML VIAL IM ONE (15:14)
--- NOTE | 2019-09-18 15:15 | Emergency Department Report ---
Blank Doc - Documentation Documentation: 44-year-old male that presents with wheezing and SOB. This initial assessment/diagnostic orders/clinical plan/treatment(s) is/are subject to change based on patient's health status, clinical progression and re- assessment by fellow clinical providers in the ED. Further treatment and workup at subsequent clinical providers discretion. Patient/guardians urged not to elope from the ED as their condition may be serious if not clinically assessed and managed. Initial orders include: 1- Patient sent to [facility] for further evaluation and treatment 2- breathing treatment/steroids
[2019-09-18] MEDS ORDERED: methylPREDNISolone Sod Succinate 125 MG/2 ML INJ IV ONE (18:23)
[2019-09-18] MEDS ORDERED: SODIUM CHLORIDE 0.9% 1000 ML 1,000 ML IV ONE (18:23)
[2019-09-18] MEDS ORDERED: MAGNESIUM SULFATE 2 GM/50 ML BAG IV ONE (18:23)
--- NOTE | 2019-09-18 18:50 | Emergency Department Report ---
HPI - General Chief Complaint: Adult Asthma Time Seen by Provider: 09/18/19 15:14 - HPI HPI: 44-year-old -[place] male presents to the emergency department with a complaint of a 4 to 5-day history of wheezing, shortness of breath, mixed dry and productive cough that he says is his asthma. He does have a history of asthma, as well as diabetes. He denies any tobacco or illicit drug use. He has been using his home albuterol inhaler and nebulizer without much relief. No recent travel or sick contacts at home. His primary care physician is a Dr. Elliott but he has not been able to see them regarding his symptoms. ED Past Medical Hx - Past Medical History Previous Medical History?: Yes Hx Diabetes: Yes Hx Asthma: Yes Additional medical history: Hernia - Surgical History Past Surgical History?: Yes Additional Surgical History: Skin graft, Pelvic reconstruction, Hernia repair - Social History Smoking Status: Unknown if ever smoked Substance Use Type: None - Medications Home Medications: Home Medications Medication Instructions Recorded Confirmed Last Taken Type Albuterol Sulfate [Albuterol 0.63% 0.63 mg IH TID PRN #1 box 01/31/18 04/26/18 Unknown Rx NEBS] Albuterol Sulfate [Proair 90 mcg IH Q4HR PRN #2 aer.pow.ba 01/31/18 04/26/18 Unknown Rx Respiclick] Budesonide [Pulmicort] 0.25 mg IH Q12HR #1 box 01/31/18 04/26/18 Unknown Rx Insulin NPH Hum/Reg Insulin Hm 25 unit SQ BID 01/31/18 04/26/18 01/30/18 History [Humulin 70-30 Vial] Ipratropium [Atrovent NEB] 0.5 mg IH Q8HRT #1 box 01/31/18 04/26/18 Unknown Rx HYDROcodone/APAP 5-325 [[place] 1 - 2 each PO Q6HR PRN #10 tablet 04/07/18 04/26/18 Unknown Rx 5/325] Ibuprofen [Motrin 800 MG tab] 800 mg PO Q8HR PRN #20 tablet 04/07/18 04/26/18 Unknown Rx Albuterol Sulfate [Proair 90 mcg IH Q4HR PRN #2 aer.pow.ba 06/19/18 Unknown Rx Respiclick] Benzonatate [Tessalon Perles] 100 mg PO Q8HR PRN #30 capsule 06/19/18 Unknown Rx Albuterol INH(or & Nicu Only) 1 puff IH Q4-6H PRN #1 inha 07/09/18 Unknown Rx [ProAir HFA Inhaler] Montelukast [Singulair] 10 mg PO QPM #14 tablet 07/09/18 Unknown Rx predniSONE [Deltasone] 50 mg PO QDAY #7 tab 07/09/18 Unknown Rx Albuterol INH(or & Nicu Only) 2 puff IH Q6H PRN #1 inhalation 07/18/18 Unknown Rx [ProAir HFA Inhaler] Albuterol Sulfate [Albuterol 0.63% 3 ml IH Q6HR PRN #2 ml 07/18/18 Unknown Rx NEBS] Cetirizine HCl [ZyrTEC] 10 mg PO QAM 14 Days #14 capsule 07/18/18 Unknown Rx Fluticasone [Flonase] 1 spray NS QDAY 14 Days #1 bottle 07/18/18 Unknown Rx guaiFENesin/CODEINE [Robitussin AC] 10 ml PO QHS PRN #70 oral.liqd 07/18/18 U nknown Rx Cyclobenzaprine [Flexeril] 10 mg PO TID PRN #30 tablet 07/25/18 Unknown Rx Menthol/Camphor [[place] 1 applicatio TP QID PRN #1 tube 07/25/18 Unknown Rx Ointment] Naproxen 500 mg PO BID PRN #30 tablet 07/25/18 Unknown Rx Albuterol Sulfate [Albuterol 0.63% 0.63 mg IH Q4HR PRN #2 ml 09/07/18 Unknown Rx NEBS] Albuterol Sulfate [Proair 90 mcg IH Q4HR PRN #2 aer.pow.ba 09/07/18 Unknown Rx Respiclick] Ipratropium (Nf) [Atrovent] 2 puff IH Q6HR PRN #1 inha 09/07/18 Unknown Rx Ipratropium [Atrovent NEB] 0.5 mg IH Q4HR #2 ml 09/07/18 Unknown Rx predniSONE [Deltasone] 40 mg PO QDAY #8 tab 09/07/18 Unknown Rx Albuterol INH(or & Nicu Only) 1 puff IH Q4-6H PRN #1 inha 10/23/18 Unknown Rx [ProAir HFA Inhaler] Fluticasone (Nf) [Flovent Hfa(Nf)] 1 puff IH BID #1 device 10/23/18 Unknown Rx Montelukast [Singulair] 10 mg PO QPM #14 tablet 10/23/18 Unknown Rx predniSONE [Deltasone] 50 mg PO QDAY #5 tab 10/23/18 Unknown Rx Prednisone [predniSONE 10 mg 10 mg PO .TAPER #1 tab.ds.pk 01/03/19 Unknown Rx (6-Day Pack, 21 Tabs)] Albuterol INH(or & Nicu Only) 2 puff IH QID PRN #1 device 02/18/19 Unknown Rx [ProAir HFA Inhaler] HYDROcodone/APAP 5-325 [[place] 1 each PO Q6HR PRN #10 tablet 02/18/19 Unknown Rx 5/325] Prednisone [predniSONE 10 mg 10 mg PO .TAPER #1 tab.ds.pk 02/18/19 Unknown Rx (6-Day Pack, 21 Tabs)] Prednisone [predniSONE 10 mg 10 mg PO .TAPER 6 Days #1 tab.ds.pk 03/12/19 Unknown Rx (6-Day Pack, 21 Tabs)] Albuterol INH(or & Nicu Only) 2 puff IH QID PRN #1 inhalation 04/13/19 Unknown Rx [Proair] Albuterol Sulfate [Albuterol 0.63% 0.63 mg IH TID PRN #90 ml 04/13/19 Unknown Rx NEBS] Prednisone [predniSONE 10 mg 10 mg PO .TAPER #1 tab.ds.pk 04/13/19 Unknown Rx (6-Day Pack, 21 Tabs)] Albuterol INH(or & Nicu Only) 2 puff IH QID PRN #8.5 gram 07/06/19 Unknown Rx [ProAir HFA Inhaler] Prednisone [predniSONE 10 mg 10 mg PO .TAPER #1 tab.ds.pk 07/06/19 Unknown Rx (6-Day Pack, 21 Tabs)] Albuterol INH(or & Nicu Only) 2 puff IH Q4H PRN #1 inh 09/18/19 Unknown Rx [ProAir HFA Inhaler] predniSONE [Deltasone] 20 mg PO BID #10 tab 09/18/19 Unknown Rx ED Review of Systems ROS: Stated complaint: SOB Other details as noted in HPI Comment: All other systems reviewed and negative Constitutional: denies: chills, fever Eyes: denies: eye pain, vision change ENT: denies: ear pain, throat pain Respiratory: cough, shortness of breath, wheezing Cardiovascular: denies: chest pain, palpitations Gastrointestinal: denies: abdominal pain, vomiting Genitourinary: denies: dysuria, discharge Musculoskeletal: denies: back pain, arthralgia Skin: denies: rash, lesions Neurological: denies: headache, weakness Physical Exam - Physical Exam Vital Signs: Vital Signs 09/18/19 09/18/19 15:14 17:09 Temperature 98.5 F Pulse Rate 123 H 109 H Respiratory 18 18 Rate Blood Pressure 133/82 Blood Pressure 115/87 [Right] O2 Sat by Pulse 93 97 Oximetry Physical Exam: GENERAL: The patient is well-developed well-nourished. HENT: Normocephalic. Atraumatic. Patient has moist mucous membranes. EYES: Extraocular motions are intact. NECK: Supple. Trachea is midline. CHEST/LUNGS: Mild to moderate wheezing throughout the chest. There is some tachypnea but no accessory muscle use. A dry cough heard during examination. There is no respiratory distress noted. HEART/CARDIOVASCULAR: Regular. There is mild tachycardia. There is no murmur. ABDOMEN: Abdomen is soft, nontender. Patient has normal bowel sounds. SKIN: Skin is warm and dry. NEURO: The patient is awake, alert, and oriented. The patient is cooperative. The patient has no focal neurologic deficits. Normal speech. MUSCULOSKELETAL: There is no tenderness or deformity. There is no evidence of acute injury. ED Course Vital Signs 09/18/19 09/18/19 15:14 17:09 Temperature 98.5 F Pulse Rate 123 H 109 H Respiratory 18 18 Rate Blood Pressure 133/82 Blood Pressure 115/87 [Right] O2 Sat by Pulse 93 97 Oximetry ED Medical Decision Making - Lab Data Result diagrams: 09/18/19 19:15 09/18/19 19:15 - Radiology Data Radiology results: image reviewed interpreted by me: Chest x-ray does not show any acute process. There are no pleural effusions, obvious pneumonia and there is no pneumothorax. - Medical Decision Making This patient presents to the emergency department with 4 to 5-day history of shortness of breath, wheezing and a mixed dry and productive cough. He has a history of asthma and the home albuterol inhaler and nebulizer treatments have not been sufficient. On examination he has mild to moderate bronchospasm patient was given a long breathing treatment, IV Solu-Medrol and magnesium, IV fluid resuscitation. Upon reevaluation he is feeling greatly improved and his bronchospasm has almost completely resolved. His vital signs been stable throughout his ED course although he did have some tachycardia when he first arrived through triage. He is afebrile. Chest x-ray did not show any pneumonia, pleural effusions, or any other acute process. Labs have been unremarkable including CBC and metabolic panel. The patient will be discharged home with a course of steroids, a refill of his albuterol and instructions to follow-up with his primary care physician. He will return to the emergency department with any worsening of his symptoms or any acute distress. - Differential Diagnosis Asthma exacerbation, bronchitis, pneumonia, URI Critical Care Time: No Critical care attestation.: If time is entered above; I have spent that time in minutes in the direct care of this critically ill patient, excluding procedure time. ED Disposition Clinical Impression: Acute asthma exacerbation Qualifiers: Asthma severity: unspecified severity Asthma persistence: unspecified Qualified Code(s): J45.901 - Unspecified asthma with (acute) exacerbation Disposition: DC-01 TO HOME OR SELFCARE Is pt being admited?: No Condition: Stable Instructions: Asthma (ED) Additional Instructions: Please follow-up with your primary care physician in the next few days. Return to the emergency department with any worsening of your symptoms or any acute distress. Prescriptions: predniSONE [Deltasone] 20 mg PO BID #10 tab Albuterol INH(or & Nicu Only) [ProAir HFA Inhaler] 2 puff IH Q4H PRN #1 inh PRN Reason: Shortness Of Breath Referrals: PRIMARY CARE, [Primary Care Provider] - 2-3 Days Time of Disposition: 20:59
[2019-09-18 19:29] LABS: Hematocrit 43.4 % (35.5-45.6); Hemoglobin 14.3 gm/dl (11.8-15.2); Mean Corpuscular HGB Conc 33 % (32-34); Mean Corpuscular Volume 80 fl (84-94); Platelet Count 177 K/mm3 (140-440); Red Cell Distribution Width 14.2 % (13.2-15.2)
[2019-09-18 19:45] LABS: BUN/Creatinine Ratio 15; Blood Urea Nitrogen 16 mg/dL (9-20); Calcium 9.7 mg/dL (8.4-10.2); Hemolysis Index 11
--- NOTE | 2019-09-18 19:50 | XRay Report ---
CHEST 1 VIEW 7:14 PM INDICATION / CLINICAL INFORMATION: SOB. COMPARISON: 02/18/19. FINDINGS: SUPPORT DEVICES: None. HEART / MEDIASTINUM: The heart size and pulmonary vasculature are normal. LUNGS / PLEURA: The lungs are mildly hyperinflated. Nodularity in the right lung apex measures approx imately 2 cm and may be slightly larger. There is mild adjacent apical pleural thickening. The lungs are otherwise clear. No pneumothorax. ADDITIONAL FINDINGS: No significant additional findings. IMPRESSION: 1. Emphysema. 2. Possible increase in nodularity in the right lung apex since the prior study. The findings may be inflammatory or neoplastic. Signer Name: Mohan Montoya MD Signed: 09/18/2019 7:46 PM Workstation Name: [id number]
[2019-09-18 21:44] VITALS: BP 136/90
[2019-09-18 23:09] LABS: Total Cells Counted 100
[2019-09-18 23:10] LABS: Platelet Estimate Consistent w Auto; RBC Morphology Normal
== END 2019-09-18 21:44 | disposition home or self-care (01) ==
LOC: ED 15:02
DX: J45.901 Unspecified asthma with (acute) exacerbation (principal); E11.9 Type 2 diabetes mellitus without complications; Z79.899 Other long term (current) drug therapy; Z98.890 Other specified postprocedural states
CPT/HCPCS: 36415; 71045; 80048; 85007; 85025; 94644; 96365; 96375; 99284; J2930; J3475; J7030